=== PATIENT | male | born 1960 | race Caucasian/White ===

== ENCOUNTER 2018-08-17 14:39 | Emergency (ER) | payer OTHER, MEDICAID, SELFPAY ==
[2018-08-17 14:43] VITALS: BP 214/121; PULSE 116; RESP 22; TEMP 36.7; O2SAT 100
--- NOTE | 2018-08-17 14:57 | DI.RAD.S_ITS ---
PROCEDURE: XR CHEST 1V INDICATIONS: vomiting TECHNIQUE: One view of the chest was acquired. COMPARISON: [facility], , XR CXR 1 VIEW, 09/07/2005, 9:28. FINDINGS: Surgical changes and devices: None. Lungs and pleura: No pleural effusions or pneumothorax. Lungs are clear. Mediastinum: Mediastinal contours appear normal. Heart size is normal. Bones and chest wall: No suspicious bony lesions. Overlying soft tissues appear unremarkable. IMPRESSION: No acute process. Dictated by: Adi Castle M.D. on 08/17/2018 at 15:23 Approved by: Adi Castle M.D. on 08/17/2018 at 15:24
--- NOTE | 2018-08-17 15:07 | ED.NAVMDI ---
HPI - Nausea/Vomiting/Diarrhea General Chief complaint: Nausea/Vomiting/Diarrhea Stated complaint: VOMITING BLOOD, DIABETES Time Seen by Provider: 08/17/18 14:56 Source: patient Mode of arrival: ambulatory Limitations: no limitations History of Present Illness HPI Narrative: 58-year-old male here for evaluation of hyperemesis. patient states that he has had this in the past especially when he smokes a large amount of marijuana. He states that over the past couple days he has smoked a large amount of marijuana. He states that he has nausea and vomiting. No nausea medication at home. He states that the past couple vomits he has what he describes as coffee-ground emesis no blood in his stool. Does have some epigastric pain. Has not tried anything for this prior to arrival. He states this feels just like his prior episode of hyperemesis secondary to smoking marijuana. Related Data Home Medications Medication Instructions Recorded Confirmed aspirin 325 mg PO DAILY #0 02/03/12 08/17/18 Syringes 1 syr MISCELLANEOUS DIRECTED 08/17/18 08/17/18 atorvastatin 1 tab PO QPM 08/17/18 08/17/18 glyburide 2 tab PO BID 08/17/18 08/17/18 insulin NPH isoph U-100 human 36 units SUBCUT BID 08/17/18 08/17/18 [Humulin N NPH U-100 Insulin] losartan 1 tab PO DAILY 08/17/18 08/17/18 metformin 1 tab PO BID 08/17/18 08/17/18 metoprolol succinate 1 tab PO DAILY 08/17/18 08/17/18 nitroglycerin 1 patch TOPICAL DAILY 08/17/18 08/17/18 omeprazole 1 cap PO DAILY 08/17/18 08/17/18 Previous Rx's Medication Instructions Recorded nitroglycerin [Nitrostat] 0.4 mg SUBLINGUAL SEE INSTRUCTIONS 04/02/13 #2 bot ondansetron [Zofran ODT] 4 mg PO Q6-8H PRN #14 tab 08/17/18 Allergies Allergy/AdvReac Type Severity Reaction Status Date / Time No Known Drug Allergies Allergy Verified 08/17/18 14:43 Review of Systems Constitutional Denies chills, Denies fever(s) and Denies headache(s) ENT Ears, Nose, Mouth, and Throat: Denies headache(s) Cardiovascular Denies chest pain and Denies dyspnea Respiratory Denies dyspnea Gastrointestinal Gastrointestinal: Reports abdominal pain, Denies melena, Denies change in bowel habits, Reports nausea and Reports vomiting Musculoskeletal Denies myalgias and Denies arthralgias Neurologic Denies confusion and Denies headache(s) Psychiatric Denies confusion Hematologic/Lymphatic Denies easy bleeding and Denies easy bruising PFSH Medical History Cannabinoid hyperemesis syndrome (Acute) Coronary artery disease (Acute) Diabetes (Acute) Gastroesophageal reflux disease (Acute) Hypertension (Acute) Surgical History No pertinent past surgical history (Acute) Exam Initial Vital Signs Initial Vital Signs: Vital Signs Temperature 98.1 F 08/17/18 14:43 Pulse Rate 116 H 08/17/18 14:43 Respiratory Rate 22 08/17/18 14:43 Blood Pressure 214/121 H 08/17/18 14:43 Pulse Oximetry 100 08/17/18 14:43 Const General: cooperative, comfortable, well developed, well groomed and No acute distress Orientation: alert, awake and oriented x3 HENMT Head: normal to inspection and normocephalic Resp Effort & Inspection: normal respiratory effort Auscultation: clear to auscultation bilaterally Cardio Rate: tachycardic Rhythm: regular rhythm Pulses: radial pulses present GI Inspection: non-distended Palpation: soft, No firm, No guarding and tender ( epigastric) Skin Lesions: no lesions Rashes: no rashes Neuro General: alert, awake and oriented x3 Extrem General: normal to inspection and capillary refill normal Course Orders Ordered: ED Orders 08/17/18 14:57 XR chest 1V Stat 08/17/18 14:58 EKG-12 Lead Stat 08/17/18 15:07 Basic Metabolic Panel Stat Complete Blood Count AUTO DIFF Stat Partial Thromboplastin Time Stat Prothrombin Time INR Stat Type and Screen Stat 08/17/18 17:11 EKG-12 Lead Stat Pantoprazole Sodium 80 mg/ (Sodium Chloride) 100 mls @ 10 mls/hr IV NOW ONE Stop: 08/18/18 00:55 Last Infusion: 08/17/18 15:56 Dose: 0 mls/hr Admin: 08/17/18 15:35 Dose: 10 mls/hr Pantoprazole Sodium 80 mg/ (Sodium Chloride) 100 mls @ 10 mls/hr IV CONT ILA Last Admin: 08/17/18 15:56 Dose: 8 mg/hr, 10 mls/hr Discontinued Medications Sodium Chloride (Normal Saline 0.9%) 1,000 mls @ 1,000 mls/hr IV BOLUS ONE Stop: 08/17/18 15:55 Last Infusion: 08/17/18 16:25 Dose: 0 mls/hr Admin: 08/17/18 15:14 Dose: 1,000 mls/hr Metoclopramide HCl (Reglan) 10 mg IV NOW ONE Stop: 08/17/18 17:25 Last Admin: 08/17/18 18:16 Dose: 10 mg Ondansetron HCl (Zofran) 4 mg IV NOW ONE Stop: 08/17/18 15:14 Last Admin: 08/17/18 15:14 Dose: 4 mg Vital Signs - 8 hr 08/17/18 14:43 08/17/18 17:08 Temperature 98.1 F Pulse Rate 116 H 91 H Respiratory Rate 22 18 Blood Pressure 214/121 H Blood Pressure [Left Arm] 183/81 H Pulse Oximetry 100 100 MDM - Nausea/Vomiting/Diarrhea Lab Data Attestation: I reviewed the patient's lab results. Result diagrams: 08/17/18 15:07 08/17/18 15:07 Lab Results 08/17/18 08/17/18 08/17/18 Range/Units 15:07 15:07 15:07 WBC 16.8 H (4.5-11.0) X10^3/uL RBC 5.70 (4.5-5.9) X10^6/uL Hgb 16.9 (13.5-17.5) g/dL Hct 49.1 (41-53) % MCV 86.1 (80-100) fL MCH 29.6 (26-34) PG MCHC 34.4 (30-36) % RDW 14.0 (11.6-14.8) % Plt Count 318 (150-400) X10^3/uL Neut % (Auto) 89.6 H (50-75) % Lymph % (Auto) 6.2 L (25-40) % [place] % (Auto) 3.4 (3-14) % Eos % (Auto) 0.0 L (2-4) % Baso % (Auto) 0.8 (0-2) % Neut # (Auto) 45749 H (0918-7750) /uL PT 11.6 (10.1-12.7) SECONDS INR 1.1 (0.9-1.3) APTT 28 (26.4-36.2) SECONDS Sodium 140 (137-145) mmol/L Potassium 3.5 (3.4-5.1) mmol/L Chloride 94 L (98-107) mmol/L Carbon Dioxide 25 (22-32) mmol/L BUN 14 (9-20) mg/dL Creatinine 0.80 (0.66-1.25) mg/dL Estimated GFR > 60.0 (>60) mL/min BUN/Creatinine Ratio 17.5 (6-22) Glucose 295 H (80-110) mg/dL Calcium 10.0 (8.4-10.2) mg/dL Blood Type Antibody Screen 08/17/18 Range/Units 15:07 WBC (4.5-11.0) X10^3/uL RBC (4.5-5.9) X10^6/uL Hgb (13.5-17.5) g/dL Hct (41-53) % MCV (80-100) fL MCH (26-34) PG MCHC (30-36) % RDW (11.6-14.8) % Plt Count (150-400) X10^3/uL Neut % (Auto) (50-75) % Lymph % (Auto) (25-40) % [place] % (Auto) (3-14) % Eos % (Auto) (2-4) % Baso % (Auto) (0-2) % Neut # (Auto) (7291-1699) /uL PT (10.1-12.7) SECONDS INR (0.9-1.3) APTT (26.4-36.2) SECONDS Sodium (137-145) mmol/L Potassium (3.4-5.1) mmol/L Chloride (98-107) mmol/L Carbon Dioxide (22-32) mmol/L BUN (9-20) mg/dL Creatinine (0.66-1.25) mg/dL Estimated GFR (>60) mL/min BUN/Creatinine Ratio (6-22) Glucose (80-110) mg/dL Calcium (8.4-10.2) mg/dL Blood Type O Positive Antibody Screen Positive Imaging Data Chest x-ray: Radiologist's impression: [address] [address] XRay Report Signed Patient: Royce Roman R#: [id number] : 8Acct:[id number] Age/Sex: 58 / MDate of Service: 08/17/18 Loc: ED Accession Number: [id number] Procedure: XR chest 1V Ordering Provider: Jorge Luis Shields D.O. PROCEDURE: XR CHEST 1V INDICATIONS: vomiting TECHNIQUE: One view of the chest was acquired. COMPARISON: [facility], [facility], XR CXR 1 VIEW, 09/07/2005, 9:28. FINDINGS: Surgical changes and devices: None. Lungs and pleura: No pleural effusions or pneumothorax. Lungs are clear. Mediastinum: Mediastinal contours appear normal. Heart size is normal. Bones and chest wall: No suspicious bony lesions. Overlying soft tissues appear unremarkable. IMPRESSION: No acute process. Dictated by: Adi Castle M.D. on 08/17/2018 at 15:23 Approved by: Adi Castle M.D. on 08/17/2018 at 15:24 ECG Data Attestation: I personally reviewed and interpreted this ECG as follows: Prior ECG tracings: not available for review Interpretation: initial EKG timed at 1505 hr sinus rhythm ventricular rate of 93 Normal axis Normal QRS No ST T wave changes repeat EKG time 1711 hr sinus rhythm ventricular rate of 99 Unchanged from prior EKG MDM Narrative Medical decision making narrative: after fluids and Protonix and anti nausea medication here in the emergency department patient states he feels much better and his pain is much better. He is hyperglycemic however is not in DKA with a CO2 of 25 on his BMP. His relatively benign abdominal exam. No free air noted of the diaphragms on the chest x-ray. Patient states that he has had hyperemesis in the past secondary to smoking large amounts of marijuana which he has recently done. He states this feels like his prior history of hyperemesis. We did discuss the importance of him stopping the marijuana. patient is on omeprazole and he was told to start taking his medication. He states he only takes it occasionally.. Also sent home with nausea medication. He was instructed he needed to contact his primary care doctor to discuss the indications for referral to see GI for an upper endoscopy. Patient expressed understanding and agreement with plan. Discharge Plan Departure Patient Disposition: Home Clinical Impression: Cannabinoid hyperemesis syndrome Instructions: Nausea and Vomiting-Adult Activity Restrictions/Additional Instructions: I highly recommend that you start taking the omeprazole on a daily basis. The nausea medication year given today is as needed for any vomiting issues. I do suspect that if you significantly cut back/ stop the marijuana use your symptoms will improve. be sure to increase your fluid intake to prevent dehydration. Call your primary care doctor for a follow-up to discuss the indications to see a podiatrist orthopedic. Return to the emergency department for any new or worsening symptoms Prescriptions: New ondansetron [Zofran ODT] 4 mg tablet,disintegrating 4 mg PO Q6-8H PRN (Reason: nausea and vomiting) Qty: 14 RF: 0 No Action aspirin 325 mg Tablet,Delayed Release (Dr/Ec) 325 mg PO DAILY Qty: 0 RF: 0 nitroglycerin [Nitrostat] 0.4 MG tablet, sublingual 0.4 mg Sublingual SEE INSTRUCTIONS Qty: 2 RF: PRN atorvastatin 40 mg tablet 1 tab PO QPM RF: 0 glyburide 5 mg tablet 2 tab PO BID RF: 0 metformin 1,000 mg tablet 1 tab PO BID RF: 0 insulin NPH isoph U-100 human [Humulin N NPH U-100 Insulin] 100 unit/mL suspension 36 units subcut BID RF: 0 omeprazole 20 mg capsule,delayed release(DR/EC) 1 cap PO DAILY RF: 0 metoprolol succinate 25 mg tablet extended release 24 hr 1 tab PO DAILY RF: 0 losartan 100 mg tablet 1 tab PO DAILY RF: 0 nitroglycerin 0.2 mg/hr patch 24 hour 1 patch Topical DAILY RF: 0 Syringes 1 syr miscellaneous DIRECTED RF: 0
[2018-08-17] MEDS: ONDANSETRON 4 MG/2 ML INJ IV (15:14)
[2018-08-17] MEDS: SODIUM CHLORIDE 0.9% 1,000 ML 1000 ML IV (15:14)
[2018-08-17 15:19] LABS: Add Manual Diff / Slide Review NO; Basophils Percent Auto 0.8 % (0-2); Hematocrit 49.1 % (41-53); Hemoglobin 16.9 g/dL (13.5-17.5); Lymphocytes Percent Auto 6.2 % (25-40); Mean Corpuscular HGB Conc 34.4 % (30-36); Mean Corpuscular Hemoglobin 29.6 PG (26-34); Mean Corpuscular Volume 86.1 fL (80-100); Monocytes Percent Auto 3.4 % (3-14); Neutrophils Absolute Auto 15100 /uL (3000-5900); Neutrophils Percent Auto 89.6 % (50-75); Platelet Count 318 X10^3/uL (150-400); White Blood Cell Count 16.8 X10^3/uL (4.5-11.0)
[2018-08-17 15:29] LABS: INR 1.1 (0.9-1.3); Prothrombin Time 11.6 SECONDS (10.1-12.7)
[2018-08-17 15:31] LABS: BUN Creatinine Ratio 17.5 (6-22); Blood Urea Nitrogen 14 mg/dL (9-20); Carbon Dioxide 25 mmol/L (22-32); Chloride 94 mmol/L (98-107); Estimated Glomerular Filt Rate > 60.0 mL/min (>60); Glucose 295 mg/dL (80-110); HEMOLYSIS < 15 (0-50); Potassium 3.5 mmol/L (3.4-5.1); Sodium 140 mmol/L (137-145)
[2018-08-17 15:32] LABS: PTT Partial Thromboplastin Tim 28 SECONDS (26.4-36.2)
[2018-08-17] MEDS: PANTOPRAZOLE 80 MG in SODIUM CHLORIDE 0.9% 100 ML 10 ML IV ×2 (15:35→15:56)
[2018-08-17 17:08] VITALS: BP 183/81; PULSE 91; RESP 18; O2SAT 100
[2018-08-17] MEDS: METOCLOPRAMIDE 10 MG/2 ML INJ IV (18:16)
--- NOTE | 2018-08-17 18:32 | PC.NURSE ---
Pts pain much improved,not retching any more either.
[2018-08-17 18:57] VITALS: BP 132/86; PULSE 93
== END 2018-08-17 18:58 | disposition home or self-care (01) ==
PROVIDERS: Emergency Provider Emergency Medicine; Family Provider Internal Medicine; PCP Internal Medicine
DX: F12.988 Cannabis use, unspecified with other cannabis-induced disorder (principal)
CPT/HCPCS: 36591; 71045; 80048; 85025; 85610; 85730; 86850; 86870; 86900; 86901; 93005; 93010; 96365; 96366; 96375; 99283; 99285; C9113; J2405; J2765

== ENCOUNTER 2019-04-15 15:26 | Emergency (ER) | payer OTHER, MEDICAID, SELFPAY ==
[2019-04-15 15:31] VITALS: BP 198/109; PULSE 92; RESP 18; TEMP 36.1; O2SAT 99; BMI 34.0
[2019-04-15] MEDS: ONDANSETRON 4 MG/2 ML INJ IV (16:09)
[2019-04-15] MEDS: SODIUM CHLORIDE 0.9% 1,000 ML 1000 ML IV ×2 (16:09→17:25)
[2019-04-15 16:16] LABS: Add Manual Diff / Slide Review NO; Basophils Absolute Auto 100 /uL (0-100); Basophils Percent Auto 0.5 % (0-2); Eosinophils Absolute Auto 0 /uL (0-450); Eosinophils Percent Auto 0.2 % (2-4); Hematocrit 47.9 % (41-53); Hemoglobin 16.2 g/dL (13.5-17.5); Lymphocytes Absolute Auto 1000 /uL (1100-4500); Lymphocytes Percent Auto 8.6 % (25-40); Mean Corpuscular HGB Conc 33.9 % (30-36); Mean Corpuscular Volume 85.5 fL (80-100); Monocytes Absolute Auto 500 /uL (0-900); Monocytes Percent Auto 4.3 % (3-14); Neutrophils Absolute Auto 10500 /uL (1500-7000); Neutrophils Percent Auto 86.4 % (50-75); Platelet Count 342 X10^3/uL (150-400); Red Cell Distribution Width 13.9 % (11.6-14.8); White Blood Cell Count 12.1 X10^3/uL (4.5-11.0)
[2019-04-15 16:27] LABS: Lactate (Lactic Acid) 2.6 mmol/L (0.7-2.1)
[2019-04-15 16:28] LABS: Alanine Aminotransferase 36 IU/L (21-72); Albumin Globulin Ratio 1.5 (1.0-2.8); Alkaline Phosphatase 90 U/L (38-126); Aspartate Aminotransferase 25 IU/L (17-59); BUN Creatinine Ratio 17.5 (6-22); Bilirubin Total 1.1 mg/dL (0.2-1.3); Blood Urea Nitrogen 14 mg/dL (9-20); Calcium 9.8 mg/dL (8.4-10.2); Carbon Dioxide 24 mmol/L (22-32); Chloride 97 mmol/L (98-107); Estimated Glomerular Filt Rate > 60.0 mL/min (>60); Globulin 3.3 g/dL (1.7-4.1); Glucose 365 mg/dL (80-110); HEMOLYSIS < 15 (0-50); Potassium 4.3 mmol/L (3.4-5.1); Sodium 138 mmol/L (137-145); Total Protein 8.3 g/dL (6.3-8.2)
[2019-04-15 16:29] LABS: Amylase 80 U/L (30-110); Lipase 68 U/L (23-300)
--- NOTE | 2019-04-15 16:35 | DI.RAD.S_ITS ---
PROCEDURE: XR ACUTE ABDOMEN SERIES INDICATIONS: abd pain, vomiting TECHNIQUE: One view chest and two views of the abdomen were acquired. COMPARISON: None. FINDINGS: Surgical changes and devices: None. Chest: Lungs are clear. Heart size is normal. No pleural effusions. No pneumoperitoneum. Abdomen: Bowel gas pattern is normal. No suspicious calcifications. Visualized solid organ contours appear normal. Bones: No suspicious bony lesions. IMPRESSION: No acute process. Dictated by: Adi Catsle M.D. on 04/15/2019 at 15:52 Approved by: Adi Castle M.D. on 04/15/2019 at 15:52
--- NOTE | 2019-04-15 16:57 | ED_ITS ---
HPI - Nausea/Vomiting/Diarrhea <Myriam Chandana, DIRECTOR OF ASSISTED LIVING-[facility] - Last Filed: 04/15/19 20:34> General Chief complaint: Nausea/Vomiting/Diarrhea Stated complaint: states cyclical vomiting Time Seen by Provider: 04/15/19 15:51 Source: patient Mode of arrival: ambulatory Limitations: no limitations History of Present Illness HPI Narrative: Patient is a 58-year-old male current marijuana smoker with his tory of type 2 diabetes who presents with ?my cyclic vomiting is acting up again.The patient states that he has a history of cannabis related hyperemesis. He states this attack came on last Tuesday, and he is unable to keep down food or fluids. He states he has not been able to keep down his diabetes medications. He denies any fevers chest pain shortness of breath. He denies any diarrhea. He has not taken anything at home to help himself feel better. He states he felt he was getting better, and then got worse again. He has not followed up with his PCP. The patient denies any vomiting blood or coffee- ground emesis. Related Data Home Medications Medication Instructions Recorded Confirmed aspirin 325 mg PO DAILY #0 02/03/12 08/17/18 Syringes 1 syr MISCELLANEOUS DIRECTED 08/17/18 08/17/18 atorvastatin 1 tab PO QPM 08/17/18 08/17/18 glyburide 2 tab PO BID 08/17/18 08/17/18 insulin NPH isoph U-100 human 36 units SUBCUT BID 08/17/18 08/17/18 [Humulin N NPH U-100 Insulin] losartan 1 tab PO DAILY 08/17/18 08/17/18 metformin 1 tab PO BID 08/17/18 08/17/18 metoprolol succinate 1 tab PO DAILY 08/17/18 08/17/18 nitroglycerin 1 patch TOPICAL DAILY 08/17/18 08/17/18 omeprazole 1 cap PO DAILY 08/17/18 08/17/18 Previous Rx's Medication Instructions Recorded nitroglycerin [Nitrostat] 0.4 mg SUBLINGUAL SEE INSTRUCTIONS 04/02/13 #2 bot ondansetron [Zofran ODT] 4 mg PO Q6-8H PRN #14 tab 08/17/18 ondansetron 4 mg PO Q8H PRN #20 tab 04/15/19 promethazine [Phenergan] 25 mg [place] Q6H PRN #12 each 04/15/19 Allergies Allergy/AdvReac Type Severity Reaction Status Date / Time No Known Drug Allergies Allergy Verified 04/15/19 15:31 Review of Systems <ARCHANA Alejandro - Last Filed: 04/15/19 20:34> Review of Systems GENERAL: This is a well-nourished, well-developed patient, in mild distress. HEAD: Atraumatic. Normocephalic. No temporal or scalp tenderness. EYES: Pupils equal round and reactive. Extraocular motions intact. No scleral icterus. No injection or drainage. ENT: Nose without bleeding, purulent drainage or septal hematoma. Throat without erythema, tonsillar hypertrophy or exudate. Uvula midline. Airway patent. NECK: Trachea midline. No JVD or lymphadenopathy. Supple, nontender, no meningeal signs. CARDIOVASCULAR: Regular rate and rhythm without murmurs, gallops, or rubs. RESPIRATORY: Clear to auscultation. Breath sounds equal bilaterally. No wheezes, rales, or rhonchi. GASTROINTESTINAL: See HPI EXTREMITIES: No clubbing, cyanosis, or edema. No joint tenderness, effusion, or edema noted. BACK: Nontender without deformity or crepitance. No flank tenderness. NEURO: AOx3. SKIN: No rash or erythema. PFSH <ARCHANA Alejandro - Last Filed: 04/15/19 20:34> Medical History Cannabinoid hyperemesis syndrome (Acute) Coronary artery disease (Acute) Diabetes (Acute) Gastroesophageal reflux disease (Acute) Hypertension (Acute) Surgical History No pertinent past surgical history (Acute) Social History Smoking Status: Current every day smoker Social History Smoking Status: Current every day smoker Exam <ARCHANA Alejandro - Last Filed: 04/15/19 20:34> Narrative Exam Narrative: GENERAL: This is a well-nourished, well-developed patient, n auseous HEAD: Atraumatic. Normocephalic. No temporal or scalp tenderness. EYES: Pupils equal round and reactive. Extraocular motions intact. No scleral icterus. No injection or drainage. ENT: Nose without bleeding, purulent drainage or septal hematoma. Throat without erythema, tonsillar hypertrophy or exudate. Uvula midline. Airway patent. NECK: Trachea midline. No JVD or lymphadenopathy. Supple, nontender, no meningeal signs. CARDIOVASCULAR: Regular rate and rhythm without murmurs, gallops, or rubs. RESPIRATORY: Clear to auscultation. Breath sounds equal bilaterally. No wheezes, rales, or rhonchi. No cough. No increased respiratory effort. No accessory muscle use use. GASTROINTESTINAL: Abdomen soft, diffusely tender, nondistended. No hepato- splenomegaly, or palpable masses. No guarding. Active bowel sounds all 4 quadrants. EXTREMITIES: No clubbing, cyanosis, or edema. No joint tenderness, effusion, or edema noted. BACK: Nontender without deformity or crepitance. No flank tenderness. NEURO: AOx3. SKIN: No rash or erythema. Initial Vital Signs Initial Vital Signs: Vital Signs Temperature 97.0 F L 04/15/19 15:31 Pulse Rate 92 H 04/15/19 15:31 Respiratory Rate 18 04/15/19 15:31 Blood Pressure 198/109 H 04/15/19 15:31 Pulse Oximetry 99 04/15/19 15:31 <Pili Marie MD - Last Filed: 04/17/19 07:18> Initial Vital Signs Initial Vital Signs: Vital Signs Temperature 97.0 F L 04/15/19 15:31 Pulse Rate 92 H 04/15/19 15:31 Respiratory Rate 18 04/15/19 15:31 Blood Pressure 198/109 H 04/15/19 15:31 Pulse Oximetry 99 04/15/19 15:31 Course <ARCHANA Alejandro - Last Filed: 04/15/19 20:34> Orders Ordered: Discontinued Medications Sodium Chloride (Normal Saline 0.9%) 1,000 mls @ 1,000 mls/hr IV BOLUS ONE Stop: 04/15/19 17:02 Last Infusion: 04/15/19 17:24 Dose: 0 mls/hr Admin: 04/15/19 16:09 Dose: 1,000 mls/hr Sodium Chloride (Normal Saline 0.9%) 1,000 mls @ 1,000 mls/hr IV BOLUS ONE Stop: 04/15/19 18:24 Last Infusion: 04/15/19 19:02 Dose: 0 mls/hr Admin: 04/15/19 17:25 Dose: 1,000 mls/hr Sodium Chloride (Normal Saline 0.9%) 1,000 mls @ 1,000 mls/hr IV BOLUS ONE Stop: 04/15/19 18:24 Last Admin: 04/15/19 17:51 Dose: Not Given Metoclopramide HCl (Reglan) 10 mg IV NOW ONE Stop: 04/15/19 16:36 Last Admin: 04/15/19 17:25 Dose: 10 mg Ondansetron HCl (Zofran) 4 mg IV NOW ONE Stop: 04/15/19 16:04 Last Admin: 04/15/19 16:09 Dose: 4 mg Ondansetron HCl (Zofran Odt Prepack) 1 bottle MISC SEEINSTR ONE Stop: 04/15/19 20:18 Last Admin: 04/15/19 20:33 Dose: 1 bottle Promethazine HCl (Phenadoz) 25 mg AK NOW ONE Stop: 04/15/19 18:46 Last Admin: 04/15/19 19:29 Dose: 25 mg Promethazine HCl (Phenergan 25 Mg Prepack) 1 bottle MISC SEEINSTR ONE Stop: 04/15/19 20:23 Last Admin: 04/15/19 20:33 Dose: 1 bottle Vital Signs - 8 hr 04/15/19 15:31 04/15/19 17:32 04/15/19 17:33 Temperature 97.0 F L Pulse Rate 92 H 94 H 68 Respiratory Rate 18 16 14 Blood Pressure 198/109 H Blood Pressure [Right Arm] 188/88 H 188/88 H Pulse Oximetry 99 97 98 04/15/19 18:21 04/15/19 19:00 Temperature Pulse Rate 80 88 Respiratory Rate 18 16 Blood Pressure Blood Pressure [Right Arm] 190/82 H 190/82 H Pulse Oximetry 98 98 <Pili Marie MD - Last Filed: 04/17/19 07:18> Orders Ordered: Discontinued Medications Sodium Chloride (Normal Saline 0.9%) 1,000 mls @ 1,000 mls/hr IV BOLUS ONE Stop: 04/15/19 17:02 Last Infusion: 04/15/19 17:24 Dose: 0 mls/hr Admin: 04/15/19 16:09 Dose: 1,000 mls/hr Sodium Chloride (Normal Saline 0.9%) 1,000 mls @ 1,000 mls/hr IV BOLUS ONE Stop: 04/15/19 18:24 Last Infusion: 04/15/19 19:02 Dose: 0 mls/hr Admin: 04/15/19 17:25 Dose: 1,000 mls/hr Sodium Chloride (Normal Saline 0.9%) 1,000 mls @ 1,000 mls/hr IV BOLUS ONE Stop: 04/15/19 18:24 Last Admin: 04/15/19 17:51 Dose: Not Given Metoclopramide HCl (Reglan) 10 mg IV NOW ONE Stop: 04/15/19 16:36 Last Admin: 04/15/19 17:25 Dose: 10 mg Ondansetron HCl (Zofran) 4 mg IV NOW ONE Stop: 04/15/19 16:04 Last Admin: 04/15/19 16:09 Dose: 4 mg Ondansetron HCl (Zofran Odt Prepack) 1 bottle MISC SEEINSTR ONE Stop: 04/15/19 20:18 Last Admin: 04/15/19 20:33 Dose: 1 bottle Promethazine HCl (Phenadoz) 25 mg AK NOW ONE Stop: 04/15/19 18:46 Last Admin: 04/15/19 19:29 Dose: 25 mg Promethazine HCl (Phenergan 25 Mg Prepack) 1 bottle MISC SEEINSTR ONE Stop: 04/15/19 20:23 Last Admin: 04/15/19 20:33 Dose: 1 bottle Vital Signs - 8 hr 04/15/19 15:31 04/15/19 17:32 04/15/19 17:33 Temperature 97.0 F L Pulse Rate 92 H 94 H 68 Respiratory Rate 18 16 14 Blood Pressure 198/109 H Blood Pressure [Right Arm] 188/88 H 188/88 H Pulse Oximetry 99 97 98 04/15/19 18:21 04/15/19 19:00 Temperature Pulse Rate 80 88 Respiratory Rate 18 16 Blood Pressure Blood Pressure [Right Arm] 190/82 H 190/82 H Pulse Oximetry 98 98 MDM - Nausea/Vomiting/Diarrhea <Myriam Ellington, DIRECTOR OF ASSISTED LIVING-[facility] - Last Filed: 04/15/19 20:34> Lab Data Result diagrams: 04/15/19 16:00 04/15/19 16:00 Lab Results 04/15/19 04/15/19 04/15/19 Range/Units 16:00 16:00 16:00 WBC 12.1 H (4.5-11.0) X10^3/uL RBC 5.60 (4.5-5.9) X10^6/uL Hgb 16.2 (13.5-17.5) g/dL Hct 47.9 (41-53) % MCV 85.5 (80-100) fL MCH 29.0 (26-34) PG MCHC 33.9 (30-36) % RDW 13.9 (11.6-14.8) % Plt Count 342 (150-400) X10^3/uL Neut % (Auto) 86.4 H (50-75) % Lymph % (Auto) 8.6 L (25-40) % [place] % (Auto) 4.3 (3-14) % Eos % (Auto) 0.2 L (2-4) % Baso % (Auto) 0.5 (0-2) % Neut # (Auto) 18804 H (5834-4610) /uL Lymph # (Auto) 1000 L (7771-8471) /uL [place] # (Auto) 500 (0-900) /uL Eos # (Auto) 0 (0-450) /uL Baso # (Auto) 100 (0-100) /uL Sodium (137-145) mmol/L Potassium (3.4-5.1) mmol/L Chloride (98-107) mmol/L Carbon Dioxide (22-32) mmol/L BUN (9-20) mg/dL Creatinine (0.66-1.25) mg/dL Estimated GFR (>60) mL/min BUN/Creatinine Ratio (6-22) Glucose (80-110) mg/dL Lactate 2.6 H (0.7-2.1) mmol/L Calcium (8.4-10.2) mg/dL Total Bilirubin (0.2-1.3) mg/dL AST (17-59) IU/L ALT (21-72) IU/L Alkaline Phosphatase (38-126) U/L Total Protein (6.3-8.2) g/dL Albumin (3.5-5.0) g/dL Globulin (1.7-4.1) g/dL Albumin/Globulin Ratio (1.0-2.8) Amylase 80 (30-110) U/L Lipase 68 (23-300) U/L Urine RBC (0-5/HPF) Urine WBC (0-5/HPF) Ur Squamous Epith Cells (0-5/HPF) Urine Bacteria (None) Ur Culture Indicated? 04/15/19 04/15/19 04/15/19 Range/Units 16:00 17:30 18:23 WBC (4.5-11.0) X10^3/uL RBC (4.5-5.9) X10^6/uL Hgb (13.5-17.5) g/dL Hct (41-53) % MCV (80-100) fL MCH (26-34) PG MCHC (30-36) % RDW (11.6-14.8) % Plt Count (150-400) X10^3/uL Neut % (Auto) (50-75) % Lymph % (Auto) (25-40) % [place] % (Auto) (3-14) % Eos % (Auto) (2-4) % Baso % (Auto) (0-2) % Neut # (Auto) (7141-4244) /uL Lymph # (Auto) (0752-1572) /uL [place] # (Auto) (0-900) /uL Eos # (Auto) (0-450) /uL Baso # (Auto) (0-100) /uL Sodium 138 (137-145) mmol/L Potassium 4.3 (3.4-5.1) mmol/L Chloride 97 L (98-107) mmol/L Carbon Dioxide 24 (22-32) mmol/L BUN 14 (9-20) mg/dL Creatinine 0.80 (0.66-1.25) mg/dL Estimated GFR > 60.0 (>60) mL/min BUN/Creatinine Ratio 17.5 (6-22) Glucose 365 H (80-110) mg/dL Lactate 1.1 (0.7-2.1) mmol/L Calcium 9.8 (8.4-10.2) mg/dL Total Bilirubin 1.1 (0.2-1.3) mg/dL AST 25 (17-59) IU/L ALT 36 (21-72) IU/L Alkaline Phosphatase 90 (38-126) U/L Total Protein 8.3 H (6.3-8.2) g/dL Albumin 5.0 (3.5-5.0) g/dL Globulin 3.3 (1.7-4.1) g/dL Albumin/Globulin Ratio 1.5 (1.0-2.8) Amylase (30-110) U/L Lipase (23-300) U/L Urine RBC 0-1/hpf (0-5/HPF) Urine WBC 0-1/hpf (0-5/HPF) Ur Squamous Epith Cells 0-1 /hpf (0-5/HPF) Urine Bacteria None seen (None) Ur Culture Indicated? Cult not indicated Point of Care Testing Glucose POC 268 Urine Dip Bedside Urine Glucose 1000 mg/dl Bedside Urine Bilirubin - Negative Bedside Urine Ketone +++ 80 Urine Specific [place] 1.020 Bedside Urine Occult Blood - Negative Bedside Urine pH 5.5 Bedside Urine Protein + 30 Bedside Urine Urobilinogen +/- 1mg Bedside Urine Nitrite - Negative Bedside Urine Leukocytes - Negative Esterase Imaging Data acute abd series : Radiologist's impression: [place] [address] XRay Report Signed Patient: Royce Roman R#: [id number] : 8Acct:[id number] Age/Sex: 58 / MDate of Service: 04/15/19 Loc: ED Accession Number: [id number] Procedure: XR acute abdomen series Ordering Provider: Myriam Ellington PROCEDURE: XR ACUTE ABDOMEN SERIES INDICATIONS: abd pain, vomiting TECHNIQUE: One view chest and two views of the abdomen were acquired. COMPARISON: None. FINDINGS: Surgical changes and devices: None. Chest: Lungs are clear. Heart size is normal. No pleural effusions. No pneumoperitoneum. Abdomen: Bowel gas pattern is normal. No suspicious calcifications. Visualized solid organ contours appear normal. Bones: No suspicious bony lesions. IMPRESSION: No acute process. Dictated by: Adi Castle M.D. on 04/15/2019 at 15:52 Approved by: Adi Castle M.D. on 04/15/2019 at 15:52 [facility] Narrative Medical decision making narrative: The patient is a 58-year-old male with history of can avoid related hyperemesis, who presents with a chief complaint of nausea and vomiting. He does have history of diabetes blood sugars were elevated. He is hyperglycemic, but does not have DKA as his CO2 is 24 on his BMP. He has a benign abdominal exam. He was treated with 2 L IV fluids, Zofran and Reglan and Phenergan. I did give him prescriptions of Zofran and Phenergan. He was able to tolerate p.o. trial of fluids and ice prior to discharge. He felt much improved. I discussed coming back to the ER for any acute concerns. Discussed follow-up with his PCP in the next few days. Patient has no questions or concerns upon discharge. I encouraged the patient to stop smoking marijuana. <Pili Marie MD - Last Filed: 04/17/19 07:18> Lab Data Lab Results 04/15/19 04/15/19 04/15/19 Range/Units 16:00 16:00 16:00 WBC 12.1 H (4.5-11.0) X10^3/uL RBC 5.60 (4.5-5.9) X10^6/uL Hgb 16.2 (13.5-17.5) g/dL Hct 47.9 (41-53) % MCV 85.5 (80-100) fL MCH 29.0 (26-34) PG MCHC 33.9 (30-36) % RDW 13.9 (11.6-14.8) % Plt Count 342 (150-400) X10^3/uL Neut % (Auto) 86.4 H (50-75) % Lymph % (Auto) 8.6 L (25-40) % [place] % (Auto) 4.3 (3-14) % Eos % (Auto) 0.2 L (2-4) % Baso % (Auto) 0.5 (0-2) % Neut # (Auto) 79084 H (0679-3745) /uL Lymph # (Auto) 1000 L (5479-0260) /uL [place] # (Auto) 500 (0-900) /uL Eos # (Auto) 0 (0-450) /uL Baso # (Auto) 100 (0-100) /uL Sodium (137-145) mmol/L Potassium (3.4-5.1) mmol/L Chloride (98-107) mmol/L Carbon Dioxide (22-32) mmol/L BUN (9-20) mg/dL Creatinine (0.66-1.25) mg/dL Estimated GFR (>60) mL/min BUN/Creatinine Ratio (6-22) Glucose (80-110) mg/dL Lactate 2.6 H (0.7-2.1) mmol/L Calcium (8.4-10.2) mg/dL Total Bilirubin (0.2-1.3) mg/dL AST (17-59) IU/L ALT (21-72) IU/L Alkaline Phosphatase (38-126) U/L Total Protein (6.3-8.2) g/dL Albumin (3.5-5.0) g/dL Globulin (1.7-4.1) g/dL Albumin/Globulin Ratio (1.0-2.8) Amylase 80 (30-110) U/L Lipase 68 (23-300) U/L Urine RBC (0-5/HPF) Urine WBC (0-5/HPF) Ur Squamous Epith Cells (0-5/HPF) Urine Bacteria (None) Ur Culture Indicated? 04/15/19 04/15/19 04/15/19 Range/Units 16:00 17:30 18:23 WBC (4.5-11.0) X10^3/uL RBC (4.5-5.9) X10^6/uL Hgb (13.5-17.5) g/dL Hct (41-53) % MCV (80-100) fL MCH (26-34) PG MCHC (30-36) % RDW (11.6-14.8) % Plt Count (150-400) X10^3/uL Neut % (Auto) (50-75) % Lymph % (Auto) (25-40) % [place] % (Auto) (3-14) % Eos % (Auto) (2-4) % Baso % (Auto) (0-2) % Neut # (Auto) (9560-6567) /uL Lymph # (Auto) (0100-7354) /uL [place] # (Auto) (0-900) /uL Eos # (Auto) (0-450) /uL Baso # (Auto) (0-100) /uL Sodium 138 (137-145) mmol/L Potassium 4.3 (3.4-5.1) mmol/L Chloride 97 L (98-107) mmol/L Carbon Dioxide 24 (22-32) mmol/L BUN 14 (9-20) mg/dL Creatinine 0.80 (0.66-1.25) mg/dL Estimated GFR > 60.0 (>60) mL/min BUN/Creatinine Ratio 17.5 (6-22) Glucose 365 H (80-110) mg/dL Lactate 1.1 (0.7-2.1) mmol/L Calcium 9.8 (8.4-10.2) mg/dL Total Bilirubin 1.1 (0.2-1.3) mg/dL AST 25 (17-59) IU/L ALT 36 (21-72) IU/L Alkaline Phosphatase 90 (38-126) U/L Total Protein 8.3 H (6.3-8.2) g/dL Albumin 5.0 (3.5-5.0) g/dL Globulin 3.3 (1.7-4.1) g/dL Albumin/Globulin Ratio 1.5 (1.0-2.8) Amylase (30-110) U/L Lipase (23-300) U/L Urine RBC 0-1/hpf (0-5/HPF) Urine WBC 0-1/hpf (0-5/HPF) Ur Squamous Epith Cells 0-1 /hpf (0-5/HPF) Urine Bacteria None seen (None) Ur Culture Indicated? Cult not indicated Point of Care Testing Glucose POC 268 Urine Dip Bedside Urine Glucose 1000 mg/dl Bedside Urine Bilirubin - Negative Bedside Urine Ketone +++ 80 Urine Specific [place] 1.020 Bedside Urine Occult Blood - Negative Bedside Urine pH 5.5 Bedside Urine Protein + 30 Bedside Urine Urobilinogen +/- 1mg Bedside Urine Nitrite - Negative Bedside Urine Leukocytes - Negative Esterase Discharge Plan Departure Patient Disposition: Home Clinical Impression: Cannabinoid hyperemesis syndrome Discharge Date/Time: 04/15/19 20:43 Interventions: ED Discharge Assessment Last Done: 04/15/19 20:42 Instructions: DI for Nausea -- Adult, DI for Vomiting -- Adult Activity Restrictions/Additional Instructions: Please follow up with primary care provider as soon as possible. I have given you to defer prescriptions for nausea. Please take small amounts of fluids frequently. Please come back to the emergency department for any acute concerns such as inability keep down fluids, chest pain or shortness of breath. You can try application of capsaicin cream to your stomach as well as warm showers. Please stop smoking marijuana. Prescriptions: New promethazine [Phenergan] 25 mg suppository 25 mg AK Q6H PRN (Reason: nausea and vomiting) Qty: 12 RF: 0 ondansetron 4 mg tablet,disintegrating 4 mg PO Q8H PRN (Reason: nausea and vomiting) Qty: 20 RF: 0 No Action aspirin 325 mg Tablet,Delayed Release (Dr/Ec) 325 mg PO DAILY Qty: 0 RF: 0 nitroglycerin [Nitrostat] 0.4 MG tablet, sublingual 0.4 mg Sublingual SEE INSTRUCTIONS Qty: 2 RF: PRN atorvastatin 40 mg tablet 1 tab PO QPM RF: 0 glyburide 5 mg tablet 2 tab PO BID RF: 0 metformin 1,000 mg tablet 1 tab PO BID RF: 0 insulin NPH isoph U-100 human [Humulin N NPH U-100 Insulin] 100 unit/mL susp ension 36 units subcut BID RF: 0 omeprazole 20 mg capsule,delayed release(DR/EC) 1 cap PO DAILY RF: 0 metoprolol succinate 25 mg tablet extended release 24 hr 1 tab PO DAILY RF: 0 losartan 100 mg tablet 1 tab PO DAILY RF: 0 nitroglycerin 0.2 mg/hr patch 24 hour 1 patch Topical DAILY RF: 0 Syringes 1 syr miscellaneous DIRECTED RF: 0 ondansetron [Zofran ODT] 4 mg tablet,disintegrating 4 mg PO Q6-8H PRN (Reason: nausea and vomiting) Qty: 14 RF: 0
[2019-04-15] MEDS: METOCLOPRAMIDE 10 MG/2 ML INJ IV (17:25)
[2019-04-15 17:32] VITALS: BP 188/88; PULSE 94; RESP 16; O2SAT 97
[2019-04-15 17:33] VITALS: BP 188/88; PULSE 68; RESP 14; O2SAT 98
[2019-04-15 17:42] LABS: Bacteria Urine None Seen
[2019-04-15 17:50] LABS: RBC Urine 0-1/HPF (0-5/HPF); Squamous Epithelial Cell Urine 0-1 /HPF (0-5/HPF); WBC Urine 0-1/HPF (0-5/HPF)
[2019-04-15 17:51] LABS: Culture Indicated Urine Cult Not Indicated
[2019-04-15 18:11] LABS: Reflexed Lactate in 2 Hours Y
[2019-04-15 18:21] VITALS: BP 190/82; PULSE 80; RESP 18; O2SAT 98
[2019-04-15 18:40] LABS: Lactate 2HR (Lactic Acid Rflx) 1.1 mmol/L (0.7-2.1)
[2019-04-15 19:00] VITALS: BP 190/82; PULSE 88; RESP 16; O2SAT 98
[2019-04-15] MEDS: PROMETHAZINE 25 MG SUPP PR (19:29)
[2019-04-15] MEDS: ONDANSETRON 4 MG ODT PREPACK 1 BOTTLE MISC (20:33)
[2019-04-15] MEDS: PROMETHAZINE 25 MG PREPACK 1 BOTTLE MISC (20:33)
[2019-04-15 20:34] VITALS: BP 188/80; PULSE 88; RESP 14; TEMP 36.7; O2SAT 98
== END 2019-04-15 20:43 | disposition home or self-care (01) ==
PROVIDERS: Emergency Provider Nurse Practitioner Family
DX: F12.988 Cannabis use, unspecified with other cannabis-induced disorder (principal)
CPT/HCPCS: 36415; 36591; 74022; 80053; 81003; 81015; 82150; 82962; 83605; 83690; 85025; 96361; 96374; 96375; 99284; J2405; J2765

== ENCOUNTER 2019-12-25 23:38 | Emergency (ER) | payer OTHER, MEDICAID, SELFPAY ==
--- NOTE | 2019-12-25 23:40 | PC.NURSE ---
PT states about 7 episodes of n/v tonight with one episode of blood in his vomit, reports he is out of his omeprazole, has a history cyclic vomiting and uses cannabis. Pt appears in no acute distress is sleeping on stretcher in room.
[2019-12-25 23:47] VITALS: BP 181/101; PULSE 107; RESP 18; TEMP 36.6; O2SAT 98
[2019-12-26] MEDS: ONDANSETRON 4 MG/2 ML INJ IV (00:07)
[2019-12-26 00:38] LABS: Add Manual Diff / Slide Review NO; Basophils Absolute Auto 0 /uL (0-100); Basophils Percent Auto 0.4 % (0-2); Eosinophils Absolute Auto 300 /uL (0-450); Eosinophils Percent Auto 2.3 % (2-4); Hematocrit 47.2 % (41-53); Lymphocytes Absolute Auto 1400 /uL (1100-4500); Lymphocytes Percent Auto 10.5 % (25-40); Mean Corpuscular HGB Conc 33.8 % (30-36); Mean Corpuscular Hemoglobin 29.3 PG (26-34); Mean Corpuscular Volume 86.7 fL (80-100); Monocytes Absolute Auto 800 /uL (0-900); Monocytes Percent Auto 5.7 % (3-14); Neutrophils Absolute Auto 11200 /uL (1500-7000); Neutrophils Percent Auto 81.1 % (50-75); Platelet Count 310 X10^3/uL (150-400); Red Blood Cell Count 5.45 X10^6/uL (4.5-5.9); Red Cell Distribution Width 13.7 % (11.6-14.8); White Blood Cell Count 13.8 X10^3/uL (4.5-11.0)
[2019-12-26 00:45] LABS: Prothrombin Time 11.6 SECONDS (10.1-12.7)
[2019-12-26 00:48] LABS: PTT Partial Thromboplastin Tim 26 SECONDS (26.4-36.2)
[2019-12-26 00:50] LABS: Alanine Aminotransferase 27 IU/L (<50); Albumin 5.1 g/dL (3.5-5.0); Albumin Globulin Ratio 1.5 (1.0-2.8); Alkaline Phosphatase 73 U/L (38-126); Aspartate Aminotransferase 34 IU/L (17-59); BUN Creatinine Ratio 17.5 (6-22); Bilirubin Total 0.7 mg/dL (0.2-1.3); Blood Urea Nitrogen 14 mg/dL (9-20); Calcium 10.6 mg/dL (8.4-10.2); Carbon Dioxide 25 mmol/L (22-32); Chloride 99 mmol/L (98-107); Estimated Glomerular Filt Rate > 60.0 mL/min (>60); Globulin 3.5 g/dL (1.7-4.1); Glucose 240 mg/dL (80-110); HEMOLYSIS 39 (0-50); Potassium 4.6 mmol/L (3.4-5.1); Sodium 142 mmol/L (137-145); Total Protein 8.6 g/dL (6.3-8.2)
--- NOTE | 2019-12-26 01:24 | ED.NAVMDI ---
HPI - Nausea/Vomiting/Diarrhea General Chief complaint: Nausea/Vomiting/Diarrhea Stated complaint: vomiting blood Time Seen by Provider: 12/26/19 01:24 Source: patient Mode of arrival: Ambulatory Limitations: no limitations History of Present Illness HPI Narrative: The patient developed nausea yesterday. He developed emesis today, he has had multiple episodes of emesis. He describes a small amount of blood after 1 episode emesis. He has had no melena, or lower GI bleed. He has a prior history of been on Protonix for hiatal hernia, he has been eye that medication for 5 days. He also has a history of cannabinoid hyperemesis. He has been seen on multiple occasions for cannabinoid hyperemesis or cyclic vomiting. He has no prior history of GI bleed. He is not drinking alcohol. He has no history of liver disease. He is on change smoking, as well as smoking marijuana. He has no melena, or suggestive lower GI bleeding. He has no fever chills with current episodes of emesis. Also, he is on medications for hypertension. He apparently is not taking his regular medications today. He has associated chest pain or dyspnea. He denies headache. He has upper abdominal discomfort with nausea and vomiting. Related Data Home Medications Medication Instructions Recorded Confirmed aspirin 325 mg PO DAILY #0 02/03/12 08/17/18 Syringes 1 syr MISCELLANEOUS DIRECTED 08/17/18 08/17/18 atorvastatin 1 tab PO QPM 08/17/18 08/17/18 glyburide 2 tab PO BID 08/17/18 08/17/18 insulin NPH isoph U-100 human 36 units SUBCUT BID 08/17/18 08/17/18 [Humulin N NPH U-100 Insulin] losartan 1 tab PO DAILY 08/17/18 08/17/18 metformin 1 tab PO BID 08/17/18 08/17/18 metoprolol succinate 1 tab PO DAILY 08/17/18 08/17/18 nitroglycerin 1 patch TOPICAL DAILY 08/17/18 08/17/18 omeprazole 1 cap PO DAILY 08/17/18 08/17/18 Previous Rx's Medication Instructions Recorded nitroglycerin [Nitrostat] 0.4 mg SUBLINGUAL SEE INSTRUCTIONS 04/02/13 #2 bot ondansetron [Zofran ODT] 4 mg PO Q6-8H PRN #14 tab 08/17/18 ondansetron 4 mg PO Q8H PRN #20 tab 04/15/19 promethazine [Phenergan] 25 mg OK Q6H PRN #12 each 04/15/19 ondansetron 4 mg PO Q6-8H PRN #20 tab 12/26/19 pantoprazole [Protonix] 40 mg PO QAM #30 tab 12/26/19 Allergies Allergy/AdvReac Type Severity Reaction Status Date / Time No Known Drug Allergies Allergy Verified 04/15/19 15:31 Review of Systems Review of Systems ROS Unobtainable: All systems reviewed & are unremarkable except as noted in HPI and below Constitutional Constitutional: Denies chills, Denies fever(s), Denies lethargy, Denies stops breathing during sleep and Denies weakness ENT Ears, Nose, Mouth, and Throat: Denies hoarseness, Denies neck pain and Reports sore throat Cardiovascular Cardiovascular: Denies chest pain, Denies irregular heart rhythm, Denies lightheadedness, Denies palpitations, Denies dyspnea and Denies orthopnea Respiratory Respiratory: Denies cough, Denies dyspnea and Denies wheezing Gastrointestinal Gastrointestinal: Denies abdominal pain, Denies change in bowel habits, Denies diarrhea, Denies nausea and Reports vomiting Genitourinary Genitourinary: Denies hematuria, Denies flank pain and Denies urinary incontinence Musculoskeletal Musculoskeletal: Denies back pain, Denies neck pain and Denies numbness Integumentary/Breasts Skin/Breast: Denies pruritus, Denies erythema and Denies rash Neurologic Neurologic: Denies confusion, Denies numbness and Denies weakness Psychiatric Psychiatric: Denies anxiety and Denies confusion Endocrine Endocrine: Denies palpitations Hematologic/Lymphatic Hematologic/Lymphatic: Denies easy bleeding Allergic/Immunologic Allergic/Immunologic: Denies wheezing Patient History Medical History Cannabinoid hyperemesis syndrome (Acute) Coronary artery disease (Acute) Diabetes (Acute) Gastroesophageal reflux disease (Acute) Hypertension (Acute) Surgical History No pertinent past surgical history (Acute) Social History Smoking Status: Current every day smoker Smoking Status: Current every day smoker Substance Use Type: marijuana Exam Initial Vital Signs Initial Vital Signs: Vital Signs Temperature 98 F 12/25/19 23:47 Pulse Rate 107 H 12/25/19 23:47 Respiratory Rate 18 12/25/19 23:47 Blood Pressure 181/101 H 12/25/19 23:47 Pulse Oximetry 98 12/25/19 23:47 Const General: cooperative and well developed Nutritional Appearance: well nourished [facility] Head: normocephalic and atraumatic Nose: external nose normal Face and sinus: sinuses nontender, face symmetric, no sinus tenderness and No dry mucous membranes Mouth: oral mucosae normal and moist mucous membranes Teeth and gingiva: dentition normal Throat: tonsils normal and uvula midline Eyes Conjunctivae: conjunctivae normal Neck Neck: No JVD Resp Effort & Inspection: normal respiratory effort and able to speak in complete sentences Auscultation: clear to auscultation bilaterally, no rales, no rhonchi and no wheezes Cardio Rate: regular rate Rhythm: regular rhythm Heart Sounds: no click, no gallops, no murmurs and no rubs Pulses: normal peripheral pulses GI Inspection: non-distended Palpation: soft, no hepatosplenomegaly, No guarding, No pulsatile mass and No tender Auscultation: normal bowel sounds Rectal Exam: visual inspection normal, normal sphincter tone, heme negative stool and No hemorrhoids Skin General: no rashes or lesions noted, No jaundice and No petechiae Neuro General: alert, oriented x3, gait normal and no focal motor deficits Extrem General: full ROM, no pedal edema and no calf tenderness Course Course Course Narrative: The patient complained of emesis, with blood. His H/H is stable. His rectal exam is negative. I gave him IV Protonix, restarting his Protonix. I gave him Zofran for nausea. His blood pressure was elevated, he did not take his blood pressure medications earlier today. He is advised to be compliant with medications. He is advised to give of tobacco and marijuana abuse. He had an additional episode of emesis here. He is advised to use the Zofran as needed for nausea, yet return here if necessary. He is cleared advised to return if he develops significant bloody emesis. He has been noncompliant with blood pressure medication, his blood pressure at times greater than 200 here. He was given losartan and metoprolol, his regular medications that he is not take yesterday. Prior to discharge his systolic blood pressure had improved to less than 150. Prior to discharge a talk the patient about medication compliance. He should avoid running IVs medications. He should take his medications. I advised him to quit smoking marijuana and tobacco. I advised him to arrange follow-up with his doctor, he should seek consultation with a administrative services director. His glucose is elevated. He is doing better job of managing his diabetes. He is invited to return here to the ER at any time, but he needs to care better for himself. Orders Ordered: ED Orders 12/26/19 00:20 Complete Blood Count AUTO DIFF Stat Comprehensive Metabolic Panel Stat PTT [Partial Thromboplastin Time] Stat Prothrombin Time INR Stat Discontinued Medications Losartan Potassium (Cozaar) 50 mg PO NOW ONE Stop: 12/26/19 02:33 Last Admin: 12/26/19 02:56 Dose: 50 mg Documented by: ARMEN Metoprolol Tartrate (Lopressor) 25 mg PO NOW ONE Stop: 12/26/19 02:33 Last Admin: 12/26/19 02:56 Dose: 25 mg Documented by: ARMEN Ondansetron HCl (Zofran) 4 mg IV NOW ONE Stop: 12/26/19 00:01 Last Admin: 12/26/19 00:07 Dose: 4 mg Documented by: ARMEN Pantoprazole Sodium (Protonix) 40 mg IV NOW ONE Stop: 12/26/19 01:58 Last Admin: 12/26/19 02:05 Dose: 40 mg Documented by: ARMEN Vital Signs Vital signs: Vital Signs - 8 hr 12/25/19 23:47 12/26/19 02:13 12/26/19 02:56 Temperature 98 F Pulse Rate 107 H 103 H 90 Respiratory Rate 18 Blood Pressure 181/101 H 193/89 H Blood Pressure [Left Arm] 193/89 H Pulse Oximetry 98 93 12/26/19 02:57 12/26/19 03:50 12/26/19 04:00 Temperature Pulse Rate 104 H 102 H 94 H Respiratory Rate 17 17 Blood Pressure Blood Pressure [Left Arm] 208/93 H 177/88 H 147/67 H Pulse Oximetry 92 97 93 MDM - Nausea/Vomiting/Diarrhea Lab Data Result diagrams: 12/26/19 00:20 12/26/19 00:20 Labs: Lab Results 12/26/19 12/26/19 12/26/19 Range/Units 00:20 00:20 00:20 WBC 13.8 H (4.5-11.0) X10^3/uL RBC 5.45 (4.5-5.9) X10^6/uL Hgb 16.0 (13.5-17.5) g/dL Hct 47.2 (41-53) % MCV 86.7 (80-100) fL MCH 29.3 (26-34) PG MCHC 33.8 (30-36) % RDW 13.7 (11.6-14.8) % Plt Count 310 (150-400) X10^3/uL Neut % (Auto) 81.1 H (50-75) % Lymph % (Auto) 10.5 L (25-40) % [place] % (Auto) 5.7 (3-14) % Eos % (Auto) 2.3 (2-4) % Baso % (Auto) 0.4 (0-2) % Neut # (Auto) 86388 H (3284-5808) /uL Lymph # (Auto) 1400 (3907-0027) /uL [place] # (Auto) 800 (0-900) /uL Eos # (Auto) 300 (0-450) /uL Baso # (Auto) 0 (0-100) /uL PT 11.6 (10.1-12.7) SECONDS INR 1.0 (0.9-1.3) APTT 26 L D (26.4-36.2) SECONDS Sodium 142 (137-145) mmol/L Potassium 4.6 (3.4-5.1) mmol/L Chloride 99 (98-107) mmol/L Carbon Dioxide 25 (22-32) mmol/L BUN 14 (9-20) mg/dL Creatinine 0.80 (0.66-1.25) mg/dL Estimated GFR > 60.0 (>60) mL/min BUN/Creatinine Ratio 17.5 (6-22) Glucose 240 H (80-110) mg/dL Calcium 10.6 H (8.4-10.2) mg/dL Total Bilirubin 0.7 (0.2-1.3) mg/dL AST 34 (17-59) IU/L ALT 27 (<50) IU/L Alkaline Phosphatase 73 (38-126) U/L Total Protein 8.6 H (6.3-8.2) g/dL Albumin 5.1 H (3.5-5.0) g/dL Globulin 3.5 (1.7-4.1) g/dL Albumin/Globulin Ratio 1.5 (1.0-2.8) Discharge Plan Departure Patient Disposition: Home Clinical Impression: Acute upper GI bleed Hypertension Qualifiers: Hypertension type: essential hypertension Qualified Code(s): I10 - Essential (primary) hypertension Instructions: Gastrointestinal Bleeding Activity Restrictions/Additional Instructions: Protonix 40 mg daily. Zofran every 4 hours as needed for nausea. I recommend you cease using tobacco as well as marijuana. Follow-up with your doctor, I would recommend you see GI consultation for further evaluation of your stomach. Return the ER for increased vomiting, or increased bleeding. Prescriptions: New pantoprazole [Protonix] 40 mg tablet,delayed release (DR/EC) 40 mg PO QAM Qty: 30 RF: 0 ondansetron 4 mg tablet,disintegrating 4 mg PO Q6-8H PRN (Reason: nausea and vomiting) Qty: 20 RF: 0 No Action aspirin 325 mg Tablet,Delayed Release (Dr/Ec) 325 mg PO DAILY Qty: 0 RF: 0 nitroglycerin [Nitrostat] 0.4 MG tablet, sublingual 0.4 mg Sublingual SEE INSTRUCTIONS Qty: 2 RF: PRN promethazine [Phenergan] 25 mg suppository 25 mg OK Q6H PRN (Reason: nausea and vomiting) Qty: 12 RF: 0 ondansetron 4 mg tablet,disintegrating 4 mg PO Q8H PRN (Reason: nausea and vomiting) Qty: 20 RF: 0 atorvastatin 40 mg tablet 1 tab PO QPM RF: 0 glyburide 5 mg tablet 2 tab PO BID RF: 0 metformin 1,000 mg tablet 1 tab PO BID RF: 0 insulin NPH isoph U-100 human [Humulin N NPH U-100 Insulin] 100 unit/mL suspension 36 units subcut BID RF: 0 omeprazole 20 mg capsule,delayed release(DR/EC) 1 cap PO DAILY RF: 0 metoprolol succinate 25 mg tablet extended release 24 hr 1 tab PO DAILY RF: 0 losartan 100 mg tablet 1 tab PO DAILY RF: 0 nitroglycerin 0.2 mg/hr patch 24 hour 1 patch Topical DAILY RF: 0 Syringes 1 syr miscellaneous DIRECTED RF: 0 ondansetron [Zofran ODT] 4 mg tablet,disintegrating 4 mg PO Q6-8H PRN (Reason: nausea and vomiting) Qty: 14 RF: 0
[2019-12-26] MEDS: PANTOPRAZOLE 40 MG VIAL IV (02:05)
[2019-12-26 02:13] VITALS: BP 193/89; PULSE 103; O2SAT 93
[2019-12-26 02:56] VITALS: BP 193/89; PULSE 90
[2019-12-26] MEDS: LOSARTAN 50 MG TABLET PO (02:56)
[2019-12-26] MEDS: METOPROLOL IR 25 MG TABLET PO (02:56)
[2019-12-26 02:57] VITALS: BP 208/93; PULSE 104; O2SAT 92
[2019-12-26 03:50] VITALS: BP 177/88; PULSE 102; RESP 17; O2SAT 97
[2019-12-26 04:00] VITALS: BP 147/67; PULSE 94; RESP 17; O2SAT 93
== END 2019-12-26 04:25 | disposition home or self-care (01) ==
PROVIDERS: Emergency Provider Emergency Medicine
DX: K92.2 Gastrointestinal hemorrhage, unspecified (principal); I10 Essential (primary) hypertension; E11.9 Type 2 diabetes mellitus without complications; Z72.0 Tobacco use; F12.90 Cannabis use, unspecified, uncomplicated
CPT/HCPCS: 36415; 80053; 85025; 85610; 85730; 96374; 96375; 99284; C9113; J2405

== ENCOUNTER 2020-10-02 11:44 | Emergency (ER) | payer OTHER, MEDICAID, SELFPAY ==
[2020-10-02] VITALS (9 sets, daily range): BP systolic 122–154; BP diastolic 64–83; PULSE 100–117; RESP 11–21; TEMP 36.7; O2SAT 94–97; BMI 36.1
[2020-10-02 12:10] LABS: Add Manual Diff / Slide Review NO; Basophils Absolute Auto 100 /uL (0-100); Basophils Percent Auto 0.6 % (0-2); Eosinophils Absolute Auto 0 /uL (0-450); Hematocrit 45.9 % (41-53); Hemoglobin 15.4 g/dL (13.5-17.5); Lymphocytes Absolute Auto 700 /uL (1100-4500); Lymphocytes Percent Auto 4.1 % (25-40); Mean Corpuscular HGB Conc 33.5 % (30-36); Mean Corpuscular Hemoglobin 29.2 PG (26-34); Mean Corpuscular Volume 87.2 fL (80-100); Monocytes Absolute Auto 400 /uL (0-900); Monocytes Percent Auto 2.4 % (3-14); Neutrophils Absolute Auto 14800 /uL (1500-7000); Neutrophils Percent Auto 92.9 % (50-75); Platelet Count 310 X10^3/uL (150-400); Red Blood Cell Count 5.27 X10^6/uL (4.5-5.9); Red Cell Distribution Width 14.9 % (11.6-14.8)
[2020-10-02] MEDS: SODIUM CHLORIDE 0.9% 1,000 ML 1000 ML IV (12:17)
[2020-10-02] MEDS: PANTOPRAZOLE 40 MG VIAL IV (12:17)
[2020-10-02 12:21] LABS: HEMOLYSIS < 15 (0-50)
[2020-10-02 12:28] LABS: Alanine Aminotransferase 36 IU/L (<50); Albumin 5.1 g/dL (3.5-5.0); Albumin Globulin Ratio 1.5 (1.0-2.8); Alkaline Phosphatase 68 U/L (38-126); Aspartate Aminotransferase 32 IU/L (17-59); Bilirubin Total 0.9 mg/dL (0.2-1.3); Blood Urea Nitrogen 18 mg/dL (9-20); Calcium 9.9 mg/dL (8.4-10.2); Carbon Dioxide 23 mmol/L (22-32); Chloride 91 mmol/L (98-107); Creatine Kinase 221 U/L (55-170); Estimated Glomerular Filt Rate > 60.0 mL/min (>60); Ethanol (ETOH) < 10 mg/dL; Globulin 3.4 g/dL (1.7-4.1); Glucose 351 mg/dL (80-110); Lipase 83 U/L (23-300); Magnesium 1.5 mg/dL (1.6-2.3); Phosphorous 4.5 mg/dL (2.3-3.7); Potassium 4.1 mmol/L (3.4-5.1); Sodium 134 mmol/L (137-145); Total Protein 8.5 g/dL (6.3-8.2)
--- NOTE | 2020-10-02 12:31 | ED_ITS ---
HPI - Nausea/Vomiting/Diarrhea General Chief complaint: Nausea/Vomiting/Diarrhea Stated complaint: cyclic vomiting Time Seen by Provider: 10/02/20 11:49 Source: patient Mode of arrival: Ambulatory Limitations: no limitations History of Present Illness HPI Narrative: 60-year-old male who has a longstanding history of cannabinoid hyperemesis syndrome who is here for 24 hours of increase in his nausea and vomiting. He does state that he has had coffee-ground emesis in the past secondary to vomiting after he ?empties his stomach ?and he reports he is having some of that today as well. He does report increasing the amount of marijuana he has been smoking recently. He also states that yesterday he had an episode where he became very sweaty and then woke up noticing that the laptop that he was using was on the floor in the tray that was sitting in front of him was knocked over. He is unsure as to what happened during that time. He does state that he smoked marijuana just prior to the event happening. He also reported that his blood sugar was elevated in his blood pressure was elevated yesterday. He called the nurse advice line and was told to come to the emergency department. Related Data Home Medications Medication Instructions Recorded Confirmed aspirin 325 mg PO DAILY #0 02/03/12 08/17/18 Syringes 1 syr MISCELLANEOUS DIRECTED 08/17/18 08/17/18 atorvastatin 1 tab PO QPM 08/17/18 08/17/18 glyburide 2 tab PO BID 08/17/18 08/17/18 insulin NPH isoph U-100 human 36 units SUBCUT BID 08/17/18 08/17/18 [Humulin N NPH U-100 Insulin] losartan 1 tab PO DAILY 08/17/18 08/17/18 metformin 1 tab PO BID 08/17/18 08/17/18 metoprolol succinate 1 tab PO DAILY 08/17/18 08/17/18 nitroglycerin 1 patch TOPICAL DAILY 08/17/18 08/17/18 omeprazole 1 cap PO DAILY 08/17/18 08/17/18 Previous Rx's Medication Instructions Recorded nitroglycerin [Nitrostat] 0.4 mg SUBLINGUAL SEE INSTRUCTIONS 04/02/13 #2 bot ondansetron [Zofran ODT] 4 mg PO Q6-8H PRN #14 tab 10/25/18 ondansetron 4 mg PO Q8H PRN #20 tab 04/15/19 promethazine [Phenergan] 25 mg DE Q6H PRN #12 each 04/15/19 ondansetron 4 mg PO Q6-8H PRN #20 tab 12/26/19 pantoprazole [Protonix] 40 mg PO QAM #30 tab 12/26/19 Allergies Allergy/AdvReac Type Severity Reaction Status Date / Time No Known Drug Allergies Allergy Verified 10/02/20 11:58 Review of Systems Constitutional Constitutional: Denies fatigue and Denies headache(s) ENT Ears, Nose, Mouth, and Throat: Denies headache(s) Cardiovascular Cardiovascular: Denies chest pain, Reports syncope and Denies dyspnea Respiratory Respiratory: Denies dyspnea Gastrointestinal Gastrointestinal: Denies abdominal pain, Reports nausea and Reports vomiting Genitourinary Genitourinary: Denies dysuria Genitourinary: Denies dysuria Musculoskeletal Musculoskeletal: Denies arthralgias and Denies myalgias Integumentary/Breasts Skin/Breast: Denies lesions and Denies rash Neurologic Neurologic: Reports confusion, Reports syncope and Denies headache(s) Psychiatric Psychiatric: Reports confusion Endocrine Endocrine: Denies fatigue Hematologic/Lymphatic Hematologic/Lymphatic: Denies easy bleeding and Denies easy bruising Allergic/Immunologic Allergic/Immunologic: Denies urticaria Patient History Medical History (Updated 10/02/20 @ 15:04 by Jorge Luis Shields DO) Cannabinoid hyperemesis syndrome Coronary artery disease Diabetes Gastroesophageal reflux disease Hypertension Surgical History No pertinent past surgical history Social History Smoking Status: Current every day smoker Smoking Status: Current every day smoker Substance Use Type: marijuana Exam Initial Vital Signs Initial Vital Signs: Vital Signs Temperature 98.1 F 10/02/20 11:53 Pulse Rate 114 H 10/02/20 11:53 Respiratory Rate 15 10/02/20 11:53 Blood Pressure 136/83 10/02/20 11:53 Pulse Oximetry 97 10/02/20 11:53 Const General: cooperative and comfortable Limitations: mental status not altered HENMT Head: normal to inspection and normocephalic Resp Effort & Inspection: normal respiratory effort Cardio Rate: tachycardic Skin Lesions: no lesions Rashes: no rashes Neuro General: patient alert, patient awake and patient oriented x3 Cognition: normal cognition Speech: speech normal Gait: normal gait Extrem General: normal to inspection and capillary refill normal Psych Appearance: grossly normal and well kempt Scores GCS [place] coma scale eye opening: Spontaneous [place] coma scale verbal response: Orientated [place] coma scale motor response: Obey commands [place] coma scale total score: 15 Course Orders Ordered: ED Orders 10/02/20 11:58 Complete Blood Count AUTO DIFF Stat Comprehensive Metabolic Panel Stat Ethanol (ETOH) Stat Hemoglobin A1C% w Est Avg Glu Stat Ketones (Beta-Hydroxybutyrate) Stat Lipase Stat Magnesium Stat Phosphorous Stat Troponin & CK Cardiac Panel Stat 10/02/20 12:01 EKG-12 Lead Stat Discontinued Medications Sodium Chloride (Normal Saline 0.9%) 1,000 mls @ 1,000 mls/hr IV BOLUS ONE Stop: 10/02/20 12:59 Last Admin: 10/02/20 12:17 Dose: 1,000 mls/hr Documented by: BLAINE Pantoprazole Sodium (Pantoprazole 40 Mg Vial) 40 mg IV NOW ONE Stop: 10/02/20 12:01 Last Admin: 10/02/20 12:17 Dose: 40 mg Documented by: BLAINE Vital Signs Vital signs: Vital Signs - 8 hr 10/02/20 11:53 10/02/20 11:57 10/02/20 12:00 Temperature 98.1 F Pulse Rate 114 H 115 H 117 H Respiratory Rate 15 21 Blood Pressure 136/83 122/75 Pulse Oximetry 97 97 97 10/02/20 12:30 10/02/20 13:00 10/02/20 13:30 Temperature Pulse Rate 112 H 103 H 104 H Respiratory Rate 21 15 11 L Blood Pressure 133/74 136/65 154/72 H Pulse Oximetry 94 95 96 MDM - Nausea/Vomiting/Diarrhea Medical Records Attestation: I reviewed the patient's medical records. Lab Data Attestation: I reviewed the patient's lab results. Result diagrams: 10/02/20 11:58 10/02/20 11:58 Labs: Lab Results 10/02/20 10/02/20 10/02/20 Range/Units 11:58 11:58 11:58 WBC 16.0 H (4.5-11.0) X10^3/uL RBC 5.27 (4.5-5.9) X10^6/uL Hgb 15.4 (13.5-17.5) g/dL Hct 45.9 (41-53) % MCV 87.2 (80-100) fL MCH 29.2 (26-34) PG MCHC 33.5 (30-36) % RDW 14.9 H (11.6-14.8) % Plt Count 310 (150-400) X10^3/uL Neut % (Auto) 92.9 H (50-75) % Lymph % (Auto) 4.1 L (25-40) % [place] % (Auto) 2.4 L (3-14) % Eos % (Auto) 0.0 L (2-4) % Baso % (Auto) 0.6 (0-2) % Neut # (Auto) 18077 H (8558-6492) /uL Lymph # (Auto) 700 L (8951-6820) /uL [place] # (Auto) 400 (0-900) /uL Eos # (Auto) 0 (0-450) /uL Baso # (Auto) 100 (0-100) /uL Sodium 134 L (137-145) mmol/L Potassium 4.1 (3.4-5.1) mmol/L Chloride 91 L (98-107) mmol/L Carbon Dioxide 23 (22-32) mmol/L BUN 18 (9-20) mg/dL Creatinine 0.82 (0.66-1.25) mg/dL Estimated GFR > 60.0 (>60) mL/min BUN/Creatinine Ratio 22.0 (6-22) Glucose 351 H (80-110) mg/dL Hemoglobin A1c (4.0-6.0) % Calcium 9.9 (8.4-10.2) mg/dL Phosphorus 4.5 H (2.3-3.7) mg/dL Magnesium 1.5 L (1.6-2.3) mg/dL Total Bilirubin 0.9 (0.2-1.3) mg/dL AST 32 (17-59) IU/L ALT 36 (<50) IU/L Alkaline Phosphatase 68 (38-126) U/L Total Creatine Kinase 221 H Cancelled (55-170) U/L CK-MB (CK-2) 2.60 H Cancelled (<2.37) ng/mL CK-MB (CK-2) Rel Index 1.2 L Cancelled (1.5-5.0) % Troponin I < 0.012 Cancelled (0.01-0.034) ng/mL Total Protein 8.5 H (6.3-8.2) g/dL Albumin 5.1 H (3.5-5.0) g/dL Globulin 3.4 (1.7-4.1) g/dL Albumin/Globulin Ratio 1.5 (1.0-2.8) Lipase 83 (23-300) U/L Ethyl Alcohol < 10 ( - 10) mg/dL Ketones 3.86 H (<0.27) mmol/L 10/02/20 10/02/20 Range/Units 11:58 11:58 WBC (4.5-11.0) X10^3/uL RBC (4.5-5.9) X10^6/uL Hgb (13.5-17.5) g/dL Hct (41-53) % MCV (80-100) fL MCH (26-34) PG MCHC (30-36) % RDW (11.6-14.8) % Plt Count (150-400) X10^3/uL Neut % (Auto) (50-75) % Lymph % (Auto) (25-40) % [place] % (Auto) (3-14) % Eos % (Auto) (2-4) % Baso % (Auto) (0-2) % Neut # (Auto) (9077-2249) /uL Lymph # (Auto) (3287-8791) /uL [place] # (Auto) (0-900) /uL Eos # (Auto) (0-450) /uL Baso # (Auto) (0-100) /uL Sodium (137-145) mmol/L Potassium (3.4-5.1) mmol/L Chloride (98-107) mmol/L Carbon Dioxide (22-32) mmol/L BUN (9-20) mg/dL Creatinine (0.66-1.25) mg/dL Estimated GFR (>60) mL/min BUN/Creatinine Ratio (6-22) Glucose (80-110) mg/dL Hemoglobin A1c 10.7 H (4.0-6.0) % Calcium (8.4-10.2) mg/dL Phosphorus Cancelled (2.3-3.7) mg/dL Magnesium Cancelled (1.6-2.3) mg/dL Total Bilirubin (0.2-1.3) mg/dL AST (17-59) IU/L ALT (<50) IU/L Alkaline Phosphatase (38-126) U/L Total Creatine Kinase (55-170) U/L CK-MB (CK-2) (<2.37) ng/mL CK-MB (CK-2) Rel Index (1.5-5.0) % Troponin I (0.01-0.034) ng/mL Total Protein (6.3-8.2) g/dL Albumin (3.5-5.0) g/dL Globulin (1.7-4.1) g/dL Albumin/Globulin Ratio (1.0-2.8) Lipase (23-300) U/L Ethyl Alcohol ( - 10) mg/dL Ketones Cancelled (<0.27) mmol/L ECG Data Attestation: I personally reviewed and interpreted this ECG as follows: Prior ECG tracings: not available for review Interpretation: Sinus tachycardia Ventricular rate of 110 Occasional PVC Normal QRS Normal QTC No ST T wave changes MDM Narrative Medical decision making narrative: Patient states that he actually was not very nauseous here in the ER but was earlier. He thinks he is drinking enough fluids. His blood sugars elevated but no indication for DKA. His heart rate improved fluids. He is tolerating oral intake. States that he really came in because these episodes that he has where he thinks that he is passing out. They do seem to be around the time that he is smoking marijuana. The do not sound like seizures. Low suspicion for CVA or TIA. Informed patient that he should consider quitting smoking marijuana as this seems to cause most of his issues to include a cyclic vomiting and the passing out. Informed that he does need to be drinking more water at home. He does state that he has had problems controlling his blood sugars on the past several months. He should follow-up with his primary doctor for further evaluation and treatment. He was given return precautions. He expressed understanding and agreement. Discharge Plan Departure Patient Disposition: Home Clinical Impression: Hyperglycemia Instructions: Cannabinoid Hyperemesis Syndrome Activity Restrictions/Additional Instructions: Continue all of your medications as directed. I do recommend that you consider decreasing/stopping the marijuana use as this most likely is contributing to many of the symptoms that you are having. Also recommend you contact your primary doctor to discuss your blood sugars. Return to the emergency department for any new or worsening symptoms Prescriptions: No Action aspirin 325 mg Tablet,Delayed Release (Dr/Ec) 325 mg PO DAILY Qty: 0 RF: 0 nitroglycerin [Nitrostat] 0.4 MG tablet, sublingual 0.4 mg Sublingual SEE INSTRUCTIONS Qty: 2 RF: PRN promethazine [Phenergan] 25 mg suppository 25 mg DE Q6H PRN (Reason: nausea and vomiting) Qty: 12 RF: 0 ondansetron 4 mg tablet,disintegrating 4 mg PO Q8H PRN (Reason: nausea and vomiting) Qty: 20 RF: 0 atorvastatin 40 mg tablet 1 tab PO QPM RF: 0 glyburide 5 mg tablet 2 tab PO BID RF: 0 metformin 1,000 mg tablet 1 tab PO BID RF: 0 insulin NPH isoph U-100 human [Humulin N NPH U-100 Insulin] 100 unit/mL suspension 36 units subcut BID RF: 0 omeprazole 20 mg capsule,delayed release(DR/EC) 1 cap PO DAILY RF: 0 metoprolol succinate 25 mg tablet extended release 24 hr 1 tab PO DAILY RF: 0 losartan 100 mg tablet 1 tab PO DAILY RF: 0 nitroglycerin 0.2 mg/hr patch 24 hour 1 patch Topical DAILY RF: 0 Syringes 1 syr miscellaneous DIRECTED RF: 0 ondansetron [Zofran ODT] 4 mg tablet,disintegrating 4 mg PO Q6-8H PRN (Reason: nausea and vomiting) Qty: 14 RF: 0 pantoprazole [Protonix] 40 mg tablet,delayed release (DR/EC) 40 mg PO QAM Qty: 30 RF: 0 ondansetron 4 mg tablet,disintegrating 4 mg PO Q6-8H PRN (Reason: nausea and vomiting) Qty: 20 RF: 0
[2020-10-02 12:39] LABS: Troponin I < 0.012 ng/mL (0.01-0.034)
[2020-10-02 12:42] LABS: Ketones (Beta-Hydroxybutyrate) 3.86 mmol/L (<0.27)
[2020-10-02 12:43] LABS: CKMB % Relative Index 1.2 % (1.5-5.0)
[2020-10-02 14:11] LABS: Hemoglobin A1C% w Est Avg Glu 10.7 % (4.0-6.0)
== END 2020-10-02 15:27 | disposition home or self-care (01) ==
PROVIDERS: Emergency Provider Emergency Medicine
DX: E11.65 Type 2 diabetes mellitus with hyperglycemia (principal); Z79.4 Long term (current) use of insulin; R11.2 Nausea with vomiting, unspecified; F12.90 Cannabis use, unspecified, uncomplicated; I25.10 Atherosclerotic heart disease of native coronary artery without angina pectoris; I11.0 Hypertensive heart disease with heart failure; K21.9 Gastro-esophageal reflux disease without esophagitis; R00.0 Tachycardia, unspecified
CPT/HCPCS: 36415; 80053; 80320; 82009; 82550; 82553; 83036; 83690; 83735; 84100; 84484; 85025; 93005; 93010; 96361; 96374; 99283; 99284; C9113

== ENCOUNTER 2021-02-02 12:19 | Emergency (ER) | payer OTHER, MEDICAID, SELFPAY ==
[2021-02-02] VITALS (8 sets, daily range): BP systolic 108–183; BP diastolic 63–89; PULSE 63–98; RESP 15–28; TEMP 36.6; O2SAT 83–99; BMI 50.9
[2021-02-02 13:38] LABS: Add Manual Diff / Slide Review NO; Basophils Absolute Auto 0 /uL (0-100); Basophils Percent Auto 0.3 % (0-2); Eosinophils Absolute Auto 0 /uL (0-450); Hematocrit 45.5 % (41-53); Hemoglobin 15.3 g/dL (13.5-17.5); Lymphocytes Absolute Auto 1500 /uL (1100-4500); Lymphocytes Percent Auto 9.2 % (25-40); Mean Corpuscular HGB Conc 33.5 % (30-36); Mean Corpuscular Hemoglobin 29.4 PG (26-34); Mean Corpuscular Volume 87.6 fL (80-100); Monocytes Absolute Auto 1200 /uL (0-900); Monocytes Percent Auto 7.9 % (3-14); Neutrophils Absolute Auto 13000 /uL (1500-7000); Neutrophils Percent Auto 82.6 % (50-75); Platelet Count 311 X10^3/uL (150-400); Red Blood Cell Count 5.19 X10^6/uL (4.5-5.9); White Blood Cell Count 15.8 X10^3/uL (4.5-11.0)
[2021-02-02] MEDS: PANTOPRAZOLE 40 MG VIAL 80 MG IV (13:38)
[2021-02-02] MEDS: SODIUM CHLORIDE 0.9% 1,000 ML 1000 ML IV (13:38)
[2021-02-02] MEDS: ONDANSETRON 4 MG/2 ML INJ IV (13:38)
[2021-02-02 13:41] LABS: INR 1.1 (0.9-1.3); Prothrombin Time 12.5 SECONDS (10.1-12.7)
[2021-02-02 13:44] LABS: PTT Partial Thromboplastin Tim 29 SECONDS (26.4-36.2)
--- NOTE | 2021-02-02 13:48 | PC.NURSE ---
patient has previous episodes of cyclic vomiting from marijuana. He feels this episode is different and that hes been having bouts of emesis that appear to have coffee ground vomit.
[2021-02-02 13:52] LABS: Alanine Aminotransferase 34 IU/L (<50); Albumin 5.1 g/dL (3.5-5.0); Albumin Globulin Ratio 1.6 (1.0-2.8); Alkaline Phosphatase 59 U/L (38-126); Aspartate Aminotransferase 53 IU/L (17-59); BUN Creatinine Ratio 33.7 (6-22); Bilirubin Total 0.8 mg/dL (0.2-1.3); Blood Urea Nitrogen 28 mg/dL (9-20); Calcium 10.3 mg/dL (8.4-10.2); Carbon Dioxide 30 mmol/L (22-32); Chloride 89 mmol/L (98-107); Estimated Glomerular Filt Rate > 60.0 mL/min (>60); Globulin 3.2 g/dL (1.7-4.1); Glucose 279 mg/dL (80-110); HEMOLYSIS 17 (0-50); Lipase 41 U/L (23-300); Potassium 3.8 mmol/L (3.4-5.1); Sodium 132 mmol/L (137-145); Total Protein 8.3 g/dL (6.3-8.2)
--- NOTE | 2021-02-02 14:10 | ED.NAVMDI ---
HPI - Nausea/Vomiting/Diarrhea General Chief complaint: Nausea/Vomiting/Diarrhea Stated complaint: vomiting since 8am Tuesday, blood in vomit Time Seen by Provider: 02/02/21 13:54 Source: patient Mode of arrival: Ambulatory Limitations: no limitations History of Present Illness HPI Narrative: Patient is 60-year-old male with history of daily marijuana use, coronary artery disease with stents, diabetes GERD presenting with 2 days of vomiting. He reports coffee ground emesis for 2 days uncontrollable. He did have some home nausea medication which did not seem to be helping. He has got diffuse abdominal pain. No diarrhea. He occasionally has bright red blood. He denies any dizziness lightheadedness or shortness of breath. His he had a brief episode chest pain while in the ED but no longer has it. I says this is similar to his previous episodes of is hyperemesis vomiting MD complaint: nausea and vomiting Related Data Home Medications Medication Instructions Recorded Confirmed aspirin 325 mg PO DAILY #0 02/03/12 08/17/18 Syringes 1 syr MISCELLANEOUS DIRECTED 08/17/18 08/17/18 atorvastatin 1 tab PO QPM 08/17/18 08/17/18 glyburide 2 tab PO BID 08/17/18 08/17/18 insulin NPH isoph U-100 human 36 units SUBCUT BID 08/17/18 08/17/18 [Humulin N NPH U-100 Insulin] losartan 1 tab PO DAILY 08/17/18 08/17/18 metformin 1 tab PO BID 08/17/18 08/17/18 metoprolol succinate 1 tab PO DAILY 08/17/18 08/17/18 nitroglycerin 1 patch TOPICAL DAILY 08/17/18 08/17/18 omeprazole 1 cap PO DAILY 08/17/18 08/17/18 Previous Rx's Medication Instructions Recorded nitroglycerin [Nitrostat] 0.4 mg SUBLINGUAL SEE INSTRUCTIONS 04/02/13 #2 bot ondansetron [Zofran ODT] 4 mg PO Q6-8H PRN #14 tab 08/17/18 ondansetron 4 mg PO Q8H PRN #20 tab 04/15/19 promethazine [Phenergan] 25 mg AK Q6H PRN #12 each 04/15/19 ondansetron 4 mg PO Q6-8H PRN #20 tab 12/26/19 pantoprazole [Protonix] 40 mg PO QAM #30 tab 12/26/19 ondansetron 4 mg PO Q8H PRN #10 tab 02/02/21 promethazine 25 mg AK Q6H PRN #12 ea 02/02/21 Allergies Allergy/AdvReac Type Severity Reaction Status Date / Time No Known Drug Allergies Allergy Verified 10/02/20 11:58 Review of Systems Review of Systems ROS Unobtainable: All systems reviewed & are unremarkable except as noted in HPI and below Constitutional Constitutional: Denies chills, Denies fever(s), Denies lethargy and Denies weakness ENT Ears, Nose, Mouth, and Throat: Denies change in voice, Denies neck pain and Denies sore throat Cardiovascular Cardiovascular: Reports chest pain, Denies chest pain at rest, Denies irregular heart rhythm, Denies palpitations, Denies dyspnea and Denies dyspnea on exertion Respiratory Respiratory: Denies dyspnea and Denies dyspnea on exertion Gastrointestinal Gastrointestinal: Reports as per HPI Musculoskeletal Musculoskeletal: Denies back pain and Denies neck pain Integumentary/Breasts Skin/Breast: Denies pruritus, Denies erythema, Denies rash and Denies wounds Neurologic Neurologic: Denies confusion and Denies weakness Psychiatric Psychiatric: Denies confusion Endocrine Endocrine: Denies palpitations Patient History Medical History (Updated 02/02/21 @ 16:18 by Nohemi Danielson DO) Cannabinoid hyperemesis syndrome Coronary artery disease Diabetes Gastroesophageal reflux disease Hypertension Surgical History No pertinent past surgical history Social History Smoking Status: Current every day smoker Smoking Status: Current every day smoker alcohol intake frequency: 0-2 drinks per day Substance Use Type: marijuana Exam Initial Vital Signs Initial Vital Signs: Vital Signs Temperature 97.8 F 02/02/21 12:22 Pulse Rate 96 H 02/02/21 12:22 Respiratory Rate 16 02/02/21 12:22 Blood Pressure 108/73 02/02/21 12:22 Pulse Oximetry 98 02/02/21 12:22 GENERAL: Alert pleasant 60-year-old male and in no acute distress. HEENT: Head atraumatic,EOMI, pupils reactive, face symmetric, moist mucous membranes CARDIOVASCULAR: Regular rate and rhythm without murmurs, rubs or gallops. RESPIRATORY: Breath sounds equal bilaterally, no wheezes rales or rhonchi. ABDOMEN: Soft mild diffuse tenderness no localization of pain EXTREMITIES: Normal range of motion, no clubbing or edema. Neurovascularly intact NEUROLOGICAL: Alert and oriented x4.Normal gait and speech. Cranial nerves II through XII grossly intact. SKIN: Warm, dry, no laceration, no petechiae, no rashes or lesions. Course Orders Ordered: ED Orders 02/02/21 13:08 EKG-12 Lead Stat 02/02/21 13:14 Complete Blood Count AUTO DIFF Stat Comprehensive Metabolic Panel Stat Lipase Stat Partial Thromboplastin Time Stat Prothrombin Time INR Stat Type and Screen Stat 02/02/21 14:44 Troponin & CK Cardiac Panel Stat 02/02/21 15:44 XR chest 1V Stat Discontinued Medications Diphenhydramine HCl (Diphenhydramine 50 Mg/Ml Vial) 25 mg IV NOW ONE Stop: 02/02/21 14:23 Last Admin: 02/02/21 14:25 Dose: 25 mg Documented by: SHELLY Sodium Chloride (Normal Saline 0.9%) 1,000 mls @ 1,000 mls/hr IV BOLUS ONE Stop: 02/02/21 14:08 Last Infusion: 02/02/21 15:57 Dose: 0 mls/hr Documented by: Admin: 02/02/21 13:38 Dose: 1,000 mls/hr Documented by: SHELLY Metoclopramide HCl (Metoclopramide 10 Mg/2 Ml Inj) 10 mg IV NOW ONE Stop: 02/02/21 14:22 Last Admin: 02/02/21 14:25 Dose: 10 mg Documented by: SHELLY Ondansetron HCl (Ondansetron 4 Mg/2 Ml Inj) 4 mg IV NOW ONE Stop: 02/02/21 13:09 Last Admin: 02/02/21 13:38 Dose: 4 mg Documented by: SHELLY Pantoprazole Sodium (Pantoprazole 40 Mg Vial) 80 mg IV NOW ONE Stop: 02/02/21 13:09 Last Admin: 02/02/21 13:38 Dose: 80 mg Documented by: SHELLY Vital Signs Vital signs: Vital Signs - 8 hr 02/02/21 12:22 02/02/21 13:53 02/02/21 14:46 Temperature 97.8 F Pulse Rate 96 H 63 92 H Respiratory Rate 16 24 21 Blood Pressure 108/73 183/89 H Pulse Oximetry 98 99 83 L 02/02/21 15:00 02/02/21 15:30 02/02/21 16:00 Temperature Pulse Rate 88 98 H Respiratory Rate 15 21 Blood Pressure 131/70 113/63 119/69 Pulse Oximetry 97 97 02/02/21 16:30 02/02/21 16:34 Temperature Pulse Rate 95 H 96 H Respiratory Rate 28 H 20 Blood Pressure 119/69 Pulse Oximetry 98 98 MDM - Nausea/Vomiting/Diarrhea Lab Data Attestation: I reviewed the patient's lab results. Result diagrams: 02/02/21 13:14 02/02/21 13:14 Labs: Lab Results 02/02/21 02/02/21 02/02/21 Range/Units 13:14 13:14 13:14 WBC 15.8 H (4.5-11.0) X10^3/uL RBC 5.19 (4.5-5.9) X10^6/uL Hgb 15.3 (13.5-17.5) g/dL Hct 45.5 (41-53) % MCV 87.6 (80-100) fL MCH 29.4 (26-34) PG MCHC 33.5 (30-36) % RDW 14.0 (11.6-14.8) % Plt Count 311 (150-400) X10^3/uL Neut % (Auto) 82.6 H (50-75) % Lymph % (Auto) 9.2 L (25-40) % [place] % (Auto) 7.9 (3-14) % Eos % (Auto) 0.0 L (2-4) % Baso % (Auto) 0.3 (0-2) % Neut # (Auto) 15012 H (7044-2398) /uL Lymph # (Auto) 1500 (1518-2680) /uL [place] # (Auto) 1200 H (0-900) /uL Eos # (Auto) 0 (0-450) /uL Baso # (Auto) 0 (0-100) /uL PT 12.5 (10.1-12.7) SECONDS INR 1.1 (0.9-1.3) APTT 29 (26.4-36.2) SECONDS Sodium 132 L (137-145) mmol/L Potassium 3.8 (3.4-5.1) mmol/L Chloride 89 L (98-107) mmol/L Carbon Dioxide 30 (22-32) mmol/L BUN 28 H (9-20) mg/dL Creatinine 0.83 (0.66-1.25) mg/dL Estimated GFR > 60.0 (>60) mL/min BUN/Creatinine Ratio 33.7 H (6-22) Glucose 279 H (80-110) mg/dL Calcium 10.3 H (8.4-10.2) mg/dL Total Bilirubin 0.8 (0.2-1.3) mg/dL AST 53 (17-59) IU/L ALT 34 (<50) IU/L Alkaline Phosphatase 59 (38-126) U/L Total Creatine Kinase (55-170) U/L CK-MB (CK-2) (<2.37) ng/mL CK-MB (CK-2) Rel Index (1.5-5.0) % Troponin I (0.01-0.034) ng/mL Total Protein 8.3 H (6.3-8.2) g/dL Albumin 5.1 H (3.5-5.0) g/dL Globulin 3.2 (1.7-4.1) g/dL Albumin/Globulin Ratio 1.6 (1.0-2.8) Lipase 41 (23-300) U/L Blood Type Antibody Screen 02/02/21 02/02/21 Range/Units 13:14 14:44 WBC (4.5-11.0) X10^3/uL RBC (4.5-5.9) X10^6/uL Hgb (13.5-17.5) g/dL Hct (41-53) % MCV (80-100) fL MCH (26-34) PG MCHC (30-36) % RDW (11.6-14.8) % Plt Count (150-400) X10^3/uL Neut % (Auto) (50-75) % Lymph % (Auto) (25-40) % [place] % (Auto) (3-14) % Eos % (Auto) (2-4) % Baso % (Auto) (0-2) % Neut # (Auto) (6304-8295) /uL Lymph # (Auto) (2584-7328) /uL [place] # (Auto) (0-900) /uL Eos # (Auto) (0-450) /uL Baso # (Auto) (0-100) /uL PT (10.1-12.7) SECONDS INR (0.9-1.3) APTT (26.4-36.2) SECONDS Sodium (137-145) mmol/L Potassium (3.4-5.1) mmol/L Chloride (98-107) mmol/L Carbon Dioxide (22-32) mmol/L BUN (9-20) mg/dL Creatinine (0.66-1.25) mg/dL Estimated GFR (>60) mL/min BUN/Creatinine Ratio (6-22) Glucose (80-110) mg/dL Calcium (8.4-10.2) mg/dL Total Bilirubin (0.2-1.3) mg/dL AST (17-59) IU/L ALT (<50) IU/L Alkaline Phosphatase (38-126) U/L Total Creatine Kinase 608 H (55-170) U/L CK-MB (CK-2) 3.43 H (<2.37) ng/mL CK-MB (CK-2) Rel Index 0.6 L (1.5-5.0) % Troponin I < 0.012 (0.01-0.034) ng/mL Total Protein (6.3-8.2) g/dL Albumin (3.5-5.0) g/dL Globulin (1.7-4.1) g/dL Albumin/Globulin Ratio (1.0-2.8) Lipase (23-300) U/L Blood Type O Positive Antibody Screen Negative Imaging Data Chest x-ray: Radiologist's Impression: PROCEDURE: XR CHEST 1V INDICATIONS: low 02 sat TECHNIQUE: One view of the chest was acquired. COMPARISON: [facility], , XR CHEST 1V, 08/17/2018, 15:03. FINDINGS: Surgical changes and devices: None. Lungs and pleura: Lungs are clear. No pleural effusions or pneumothorax. Mediastinum: Mediastinal contours appear normal. Heart size is normal. Bones and chest wall: No suspicious bony lesions. Overlying soft tissues appear unremarkable. IMPRESSION: No acute process. Dictated by: Adi Castle M.D. on 02/02/2021 at 16:01 ECG Data Attestation: I personally reviewed and interpreted this ECG as follows: Prior ECG tracings: available for review Interpretation: Normal sinus rhythm rate 108 p.r. interval 152 QRS [address] changes no T-wave inversions similar to previous EKG 10/02/2020 [facility] Narrative Medical decision making narrative: The patient sleeping after Reglan and Benadryl. He is overall doing much better after sleep tolerating ice chips feeling better. I do not suspect GI bleed. He had vomit here which was bile only no sign of coffee-ground emesis. Hemoglobin and hematocrit are stable and in fact within normal range so my suspicion of upper GI bleed is low. Differential diagnosis is cyclic vomiting induced from marijuana versus gastroparesis from diabetes. He seemed to respond well to Reglan. I discussed with him gastric emptying study as an outpatient. Discharge Plan Departure Patient Disposition: Home Clinical Impression: Cyclical vomiting Instructions: DI for Gastroparesis Activity Restrictions/Additional Instructions: *You have been diagnosed with cyclic vomiting *What to do: You may actually have a complication of your diabetes called gastroparesis which is a problem with your stomach emptying. You will need further studies by your PCP in order to diagnose this. 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, abdominal pain, chest pain or any new, worsening or concerning symptoms Prescriptions: New ondansetron 4 mg tablet,disintegrating 4 mg PO Q8H PRN (Reason: nausea and vomiting) Qty: 10 RF: 0 promethazine 25 mg suppository 25 mg AK Q6H PRN (Reason: nausea and vomiting) Qty: 12 RF: 0 No Action aspirin 325 mg Tablet,Delayed Release (Dr/Ec) 325 mg PO DAILY Qty: 0 RF: 0 nitroglycerin [Nitrostat] 0.4 MG tablet, sublingual 0.4 mg Sublingual SEE INSTRUCTIONS Qty: 2 RF: PRN promethazine [Phenergan] 25 mg suppository 25 mg AK Q6H PRN (Reason: nausea and vomiting) Qty: 12 RF: 0 ondansetron 4 mg tablet,disintegrating 4 mg PO Q8H PRN (Reason: nausea and vomiting) Qty: 20 RF: 0 atorvastatin 40 mg tablet 1 tab PO QPM RF: 0 glyburide 5 mg tablet 2 tab PO BID RF: 0 metformin 1,000 mg tablet 1 tab PO BID RF: 0 insulin NPH isoph U-100 human [Humulin N NPH U-100 Insulin] 100 unit/mL suspension 36 units subcut BID RF: 0 omeprazole 20 mg capsule,delayed release(DR/EC) 1 cap PO DAILY RF: 0 metoprolol succinate 25 mg tablet extended release 24 hr 1 tab PO DAILY RF: 0 losartan 100 mg tablet 1 tab PO DAILY RF: 0 nitroglycerin 0.2 mg/hr patch 24 hour 1 patch Topical DAILY RF: 0 Syringes 1 syr miscellaneous DIRECTED RF: 0 ondansetron [Zofran ODT] 4 mg tablet,disintegrating 4 mg PO Q6-8H PRN (Reason: nausea and vomiting) Qty: 14 RF: 0 pantoprazole [Protonix] 40 mg tablet,delayed release (DR/EC) 40 mg PO QAM Qty: 30 RF: 0 ondansetron 4 mg tablet,disintegrating 4 mg PO Q6-8H PRN (Reason: nausea and vomiting) Qty: 20 RF: 0 Referrals: [facility] [Outside]
[2021-02-02] MEDS: METOCLOPRAMIDE 10 MG/2 ML INJ IV (14:25)
[2021-02-02] MEDS: diphenhydrAMINE 50 MG/ML VIAL 25 MG IV (14:25)
--- NOTE | 2021-02-02 14:50 | PC.NURSE ---
patient starts to desat when he falls asleep. He was charted to be a 83% with Room air.
--- NOTE | 2021-02-02 14:53 | PC.NURSE ---
Patient was assessed and told to breathe deeply. His 02 sat went up to 98% with a good pleth
[2021-02-02 15:01] LABS: Creatine Kinase 608 U/L (55-170)
[2021-02-02 15:14] LABS: Troponin I < 0.012 ng/mL (0.01-0.034)
[2021-02-02 15:17] LABS: CKMB % Relative Index 0.6 % (1.5-5.0); Creatine Kinase MB 3.43 ng/mL (<2.37)
--- NOTE | 2021-02-02 15:44 | DI.RAD.S_ITS ---
PROCEDURE: XR CHEST 1V INDICATIONS: low 02 sat TECHNIQUE: One view of the chest was acquired. COMPARISON: [facility], CR, XR CHEST 1V, 08/17/2018, 15:03. FINDINGS: Surgical changes and devices: None. Lungs and pleura: Lungs are clear. No pleural effusions or pneumothorax. Mediastinum: Mediastinal contours appear normal. Heart size is normal. Bones and chest wall: No suspicious bony lesions. Overlying soft tissues appear unremarkable. IMPRESSION: No acute process. Dictated by: Adi Castle M.D. on 02/02/2021 at 16:01 Approved by: Adi Castle M.D. on 02/02/2021 at 16:01
== END 2021-02-02 16:36 | disposition home or self-care (01) ==
PROVIDERS: Emergency Medicine; Emergency Provider Emergency Medicine
DX: R11.15 Cyclical vomiting syndrome unrelated to migraine (principal); R10.9 Unspecified abdominal pain
CPT/HCPCS: 36415; 71045; 80053; 82550; 82553; 83690; 84484; 85025; 85610; 85730; 86850; 86900; 86901; 93005; 93010; 96361; 96374; 96375; 99284; C9113; J1200; J2405; J2765

== ENCOUNTER 2021-04-25 09:55 | Emergency (ER) | payer OTHER, MEDICAID, SELFPAY ==
[2021-04-25 10:15] VITALS: BP 126/78; PULSE 118; RESP 22; TEMP 36.4; O2SAT 98
--- NOTE | 2021-04-25 10:21 | DI.RAD.S_ITS ---
PROCEDURE: XR ACUTE ABDOMEN SERIES INDICATIONS: nausea/ vomiting/ constipation TECHNIQUE: One view chest and two views of the abdomen were acquired. COMPARISON: , , XR ACUTE ABDOMEN SERIES, 04/15/2019, 16:39. , , ABDOMEN ACUTE SERIES, 03/14/2014, 15:05. FINDINGS: Surgical changes and devices: None. Chest: Lungs are clear. Heart size is normal. No pleural effusions. No pneumoperitoneum. Abdomen: Bowel gas pattern is normal. No suspicious calcifications. Visualized solid organ contours appear normal. Bones: No suspicious bony lesions. IMPRESSION: Nonspecific bowel gas pattern, no basilar pneumonia found. Source of current symptomatology is not seen. Dictated by: Ventura Hernandez M.D. on 04/25/2021 at 11:24 Approved by: Ventura Hernandez M.D. on 04/25/2021 at 11:24
[2021-04-25] MEDS: PANTOPRAZOLE 40 MG VIAL IV (11:08)
[2021-04-25] MEDS: METOCLOPRAMIDE 10 MG/2 ML INJ IV (11:08)
[2021-04-25] MEDS: ONDANSETRON 4 MG/2 ML INJ IV (11:08)
[2021-04-25] MEDS: SODIUM CHLORIDE 0.9% 1,000 ML 1000 ML IV ×2 (11:08→12:34)
--- NOTE | 2021-04-25 11:45 | ED.RECABL ---
HPI - Recheck/Abnormal Lab/Rx General Chief Complaint: Recheck/Abnormal Lab/Rx Stated Complaint: diabetes issues, high bp Time Seen by Provider: 04/25/21 11:44 Source: patient Mode of arrival: Ambulatory Limitations: no limitations History of Present Illness HPI narrative: Gentleman with a history of cyclic violent vomiting with daily THC use, coronary artery disease post stenting, diabetes presents with recurrent severe vomiting. He notes that after his last episode of cyclic vomiting he was able to have stain for marijuana for approximately 3 weeks and then had some additional stressors that led him back to marijuana to help control anxiety. His current episode started approximately 3 days ago with progressive episodes of emesis to the point where he was miserable today. He describes today's episode as much more acidic. Notes he is on famotidine and at 1 point in the past had been on omeprazole but his insurance declined additional payment for this. He was concerned because his blood sugars were in the 300 level and his blood pressures were significantly elevated surrounding the episodes of severe nausea and emesis. He describes no chest pain or dyspnea. He has some abdominal pain from the work of vomiting over the last 3 days. He has continued to void. He has had no fevers or cough. Related Data Home Medications Medication Instructions Recorded Confirmed aspirin 325 mg tablet,delayed 325 mg PO DAILY #0 02/03/12 08/17/18 release Syringes 1 syr MISCELLANEOUS DIRECTED 08/17/18 08/17/18 atorvastatin 40 mg tablet 1 tab PO QPM 08/17/18 08/17/18 glyburide 5 mg tablet 2 tab PO BID 08/17/18 08/17/18 insulin NPH isoph U-100 human 100 36 units SUBCUT BID 08/17/18 08/17/18 unit/mL subcutaneous suspension losartan 100 mg tablet 1 tab PO DAILY 08/17/18 08/17/18 metformin 1,000 mg tablet 1 tab PO BID 08/17/18 08/17/18 metoprolol succinate 25 mg 1 tab PO DAILY 08/17/18 08/17/18 tablet,extended release 24 hr nitroglycerin 0.2 mg/hr 1 patch TOPICAL DAILY 08/17/18 08/17/18 transdermal 24 hour patch omeprazole 20 mg capsule,delayed 1 cap PO DAILY 08/17/18 08/17/18 release Previous Rx's Medication Instructions Recorded nitroglycerin 0.4 mg sublingual 0.4 mg SUBLINGUAL SEE INSTRUCTIONS 04/02/13 tablet (Nitrostat) #2 bot ondansetron 4 mg disintegrating 4 mg PO Q6-8H PRN #14 tab 08/17/18 tablet (Zofran ODT) ondansetron 4 mg disintegrating 4 mg PO Q8H PRN #20 tab 04/15/19 tablet promethazine 25 mg rectal 25 mg SD Q6H PRN #12 each 04/15/19 suppository (Phenergan) ondansetron 4 mg disintegrating 4 mg PO Q6-8H PRN #20 tab 12/26/19 tablet pantoprazole 40 mg tablet,delayed 40 mg PO QAM #30 tab 12/26/19 release (Protonix) ondansetron 4 mg disintegrating 4 mg PO Q8H PRN #10 tab 02/02/21 tablet promethazine 25 mg rectal 25 mg SD Q6H PRN #12 ea 02/02/21 suppository haloperidol 2 mg tablet 2 mg PO DAILY PRN #10 tab 04/25/21 metoclopramide HCl 10 mg tablet 10 mg PO Q6H PRN #20 tab 04/25/21 pantoprazole 40 mg tablet,delayed 40 mg PO DAILY #14 tab 04/25/21 release (Protonix) promethazine 25 mg rectal 25 mg SD Q6H PRN #12 ea 04/25/21 suppository Allergies Allergy/AdvReac Type Severity Reaction Status Date / Time No Known Drug Allergies Allergy Verified 10/02/20 11:58 Review of Systems Review of Systems Narrative: Remainder of complete review of systems is otherwise unremarkable except for that included in the HPI. Patient History Medical History (Updated 04/25/21 @ 14:21 by Dona Arias MD) Cannabinoid hyperemesis syndrome Coronary artery disease Diabetes Gastroesophageal reflux disease Hypertension Surgical History No pertinent past surgical history Social History Smoking Status: Current every day smoker Smoking Status: Current every day smoker alcohol intake frequency: 0-2 drinks per day Substance Use Type: marijuana Exam Narrative Exam Narrative: General: Healthy appearing, in no acute distress. Extraordinarily chatty and Able to give a complete, very detailed and coherent history. Well-nourished well-developed HEENT: Moist mucous membranes, normal sclera with reactive pupils, Neck: No JVD, supple Respiratory: Lungs are clear to auscultation, no wheezing no rales no rhonchi. Full and symmetrical air movement Cardiac: Regular rate and rhythm no murmurs no bruits Abdomen: Soft, nontender, good bowel tones, no flank pain Skin: Warm and dry, no rashes Neurologic: Grossly neurologically intact with no obvious asymmetries or abnormalities Extremities: No trauma, well perfused Psych: Cooperative, appropriate insight and affect Initial Vital Signs Initial Vital Signs: Vital Signs Temperature 97.6 F 04/25/21 10:15 Pulse Rate 118 H 04/25/21 10:15 Respiratory Rate 22 04/25/21 10:15 Blood Pressure 126/78 04/25/21 10:15 Pulse Oximetry 98 04/25/21 10:15 Course Orders Ordered: ED Orders 04/25/21 10:20 EKG-12 Lead Stat 04/25/21 10:21 XR acute abdomen series Stat 04/25/21 11:35 Complete Blood Count AUTO DIFF Stat Comprehensive Metabolic Panel Stat Lipase Stat Troponin & CK Cardiac Panel Stat 04/25/21 12:23 Urine Microscopic Stat Discontinued Medications Sodium Chloride (Normal Saline 0.9%) 1,000 mls @ 1,000 mls/hr IV BOLUS ONE Stop: 04/25/21 11:51 Last Infusion: 04/25/21 12:01 Dose: 0 mls/hr Documented by: Admin: 04/25/21 11:08 Dose: 1,000 mls/hr Documented by: PRAFUL Sodium Chloride (Normal Saline 0.9%) 1,000 mls @ 1,000 mls/hr IV BOLUS ONE Stop: 04/25/21 13:06 Last Infusion: 04/25/21 13:46 Dose: 0 mls/hr Documented by: Admin: 04/25/21 12:34 Dose: 1,000 mls/hr Documented by: SHELLY Metoclopramide HCl (Metoclopramide 10 Mg/2 Ml Inj) 10 mg IV NOW ONE Stop: 04/25/21 11:04 Last Admin: 04/25/21 11:08 Dose: 10 mg Documented by: PRAFUL Ondansetron HCl (Ondansetron 4 Mg Odt) 4 mg PO NOW ONE Stop: 04/25/21 10:22 Last Admin: 04/25/21 11:02 Dose: Not Given Documented by: PRAFUL Ondansetron HCl (Ondansetron 4 Mg/2 Ml Inj) 4 mg IV NOW ONE Stop: 04/25/21 10:53 Last Admin: 04/25/21 11:08 Dose: 4 mg Documented by: PRAFUL Pantoprazole Sodium (Pantoprazole 40 Mg Vial) 40 mg IV NOW ONE Stop: 04/25/21 11:04 Last Admin: 04/25/21 11:08 Dose: 40 mg Documented by: PRAFUL Vital Signs Vital signs: Vital Signs - 8 hr 04/25/21 10:15 04/25/21 12:36 04/25/21 13:21 Temperature 97.6 F Pulse Rate 118 H 99 H 101 H Respiratory Rate 22 14 Blood Pressure 126/78 127/69 136/68 Pulse Oximetry 98 99 92 04/25/21 14:32 Temperature Pulse Rate 90 Respiratory Rate 1 L Blood Pressure Pulse Oximetry 99 MDM - Recheck/Abnormal Lab/Rx Lab Data Result diagrams: 04/25/21 11:35 04/25/21 11:35 Labs: Lab Results 04/25/21 04/25/21 04/25/21 Range/Units 11:35 11:35 12:23 WBC 13.5 H (4.5-11.0) X10^3/uL RBC 5.05 (4.5-5.9) X10^6/uL Hgb 14.8 (13.5-17.5) g/dL Hct 45.0 (41-53) % MCV 89.1 (80-100) fL MCH 29.3 (26-34) PG MCHC 32.9 (30-36) % RDW 13.9 (11.6-14.8) % Plt Count 311 (150-400) X10^3/uL Neut % (Auto) 86.1 H (50-75) % Lymph % (Auto) 8.3 L (25-40) % Reynolds % (Auto) 5.3 (3-14) % Eos % (Auto) 0.0 L (2-4) % Baso % (Auto) 0.3 (0-2) % Neut # (Auto) 60133 H (7279-0290) /uL Lymph # (Auto) 1100 (1620-5276) /uL Reynolds # (Auto) 700 (0-900) /uL Eos # (Auto) 0 (0-450) /uL Baso # (Auto) 0 (0-100) /uL Sodium 135 L (137-145) mmol/L Potassium 4.4 (3.4-5.1) mmol/L Chloride 93 L (98-107) mmol/L Carbon Dioxide 27 (22-32) mmol/L BUN 20 (9-20) mg/dL Creatinine 0.77 (0.66-1.25) mg/dL Estimated GFR > 60.0 (>60) mL/min BUN/Creatinine Ratio 26.0 H (6-22) Glucose 347 H (80-110) mg/dL Calcium 11.0 H (8.4-10.2) mg/dL Total Bilirubin 0.9 (0.2-1.3) mg/dL AST 30 (17-59) IU/L ALT 28 (<50) IU/L Alkaline Phosphatase 54 (38-126) U/L Total Creatine Kinase 147 (55-170) U/L CK-MB (CK-2) 2.60 H (<2.37) ng/mL CK-MB (CK-2) Rel Index 1.8 (1.5-5.0) % Troponin I < 0.012 (0.01-0.034) ng/mL Total Protein 8.3 H (6.3-8.2) g/dL Albumin 5.0 (3.5-5.0) g/dL Globulin 3.3 (1.7-4.1) g/dL Albumin/Globulin Ratio 1.5 (1.0-2.8) Lipase 49 (23-300) U/L Urine RBC None seen (0-5/HPF) Urine WBC 0-1/hpf (0-5/HPF) Urine Bacteria None seen (None) Urine Mucus 1+ H (Negative) Ur Culture Indicated? Cult not indicated Urine Dip Bedside Urine Glucose 1000 mg/dl Bedside Urine Bilirubin - Negative Bedside Urine Ketone +++ 80 Urine Specific Chambers 1.020 Bedside Urine Occult Blood + Bedside Urine pH 6.0 Bedside Urine Protein + 30 Bedside Urine Urobilinogen - Negative Bedside Urine Nitrite - Negative Bedside Urine Leukocytes - Negative Esterase ECG Data Interpretation: Sinus tachycardia 109 But normal intervals, normal axis No acute ischemic changes MDM Narrative Medical decision making narrative: 60-year-old gentleman with diabetes and hyperemesis cannabinoid syndrome using marijuana to continue to deal with anxiety. He states that he has ?sort of? talk to his primary care doctor about his mental health issues. We discussed the importance of completely stopping marijuana and he try to negotiate weekend use at all. I explained to him he can certainly continue to use and when he does he will continue to have episodes of cyclic vomiting such as this. There likely are more effective treatments and this needs to be reviewed with his primary care physician with appropriate referrals to psychiatric care as needed. He is rehydrated. There is no evidence of infection, acute coronary syndrome, renal failure, diabetic ketoacidosis or HHS, he is safe for home discharge. Strongly recommended to follow-up with primary care doctor regarding psychiatric issues so that he can truly stock using marijuana. He is given a prescription for Phenergan suppositories. Have also given him Reglan tablets that may be helpful and if he finds himself falling into a severe vomiting trend again brief course of Haldol to use 2 mg as needed for vomiting. He is safe for home discharge Discharge Plan Departure Patient Disposition: Home Clinical Impression: Cannabinoid hyperemesis syndrome, Diabetic gastroparesis Instructions: DI for Cannabinoid Hyperemesis Syndrome Activity Restrictions/Additional Instructions: I am sorry that you are continuing to have such difficulties with nausea and vomiting. I understand that marijuana helps with some of your mental health issues however, the side effect of the continued canal been weighed hyperemesis syndrome may not be worth the benefit. Please talk to your primary care physician about alternative treatments and medications that may be more effective for you without the side effect. For the nausea and vomiting of the cannabinoid de syndrome, rectal Phenergan should be year 1st choice to help relieve symptoms. If symptoms persist using 2 mg of Haldol for its anti emetic benefits will be more helpful than any other of the anti emetics For nausea related to gastroparesis, Reglan/metoclopramide is typically the most helpful. Using it before meals may prevent nausea in the 1st place. For the increased acid feeling that you have been experiencing with this episode of nausea, I am going to suggest 2 weeks of Protonix in addition to continuing your current from loaded the in period. This will reduce the acid in your stomach and hopefully help with your symptoms Please do schedule with your primary care physician. I hope you feel better Prescriptions: New pantoprazole [Protonix] 40 mg tablet,delayed release (DR/EC) 40 mg PO DAILY Qty: 14 RF: 0 metoclopramide HCl 10 mg tablet 10 mg PO Q6H PRN (Reason: nausea and vomiting) Qty: 20 RF: 0 promethazine 25 mg suppository 25 mg SD Q6H PRN (Reason: nausea and vomiting) Qty: 12 RF: 0 haloperidol 2 mg tablet 2 mg PO DAILY PRN (Reason: nausea and vomiting) Qty: 10 RF: 0 No Action aspirin 325 mg Tablet,Delayed Release (Dr/Ec) 325 mg PO DAILY Qty: 0 RF: 0 nitroglycerin [Nitrostat] 0.4 MG tablet, sublingual 0.4 mg Sublingual SEE INSTRUCTIONS Qty: 2 RF: PRN promethazine [Phenergan] 25 mg suppository 25 mg SD Q6H PRN (Reason: nausea and vomiting) Qty: 12 RF: 0 ondansetron 4 mg tablet,disintegrating 4 mg PO Q8H PRN (Reason: nausea and vomiting) Qty: 20 RF: 0 ondansetron 4 mg tablet,disintegrating 4 mg PO Q8H PRN (Reason: nausea and vomiting) Qty: 10 RF: 0 promethazine 25 mg suppository 25 mg SD Q6H PRN (Reason: nausea and vomiting) Qty: 12 RF: 0 atorvastatin 40 mg tablet 1 tab PO QPM RF: 0 glyburide 5 mg tablet 2 tab PO BID RF: 0 metformin 1,000 mg tablet 1 tab PO BID RF: 0 insulin NPH isoph U-100 human [Humulin N NPH U-100 Insulin] 100 unit/mL suspension 36 units subcut BID RF: 0 omeprazole 20 mg capsule,delayed release(DR/EC) 1 cap PO DAILY RF: 0 metoprolol succinate 25 mg tablet extended release 24 hr 1 tab PO DAILY RF: 0 losartan 100 mg tablet 1 tab PO DAILY RF: 0 nitroglycerin 0.2 mg/hr patch 24 hour 1 patch Topical DAILY RF: 0 Syringes 1 syr miscellaneous DIRECTED RF: 0 ondansetron [Zofran ODT] 4 mg tablet,disintegrating 4 mg PO Q6-8H PRN (Reason: nausea and vomiting) Qty: 14 RF: 0 pantoprazole [Protonix] 40 mg tablet,delayed release (DR/EC) 40 mg PO QAM Qty: 30 RF: 0 ondansetron 4 mg tablet,disintegrating 4 mg PO Q6-8H PRN (Reason: nausea and vomiting) Qty: 20 RF: 0
[2021-04-25 11:53] LABS: Add Manual Diff / Slide Review NO; Basophils Absolute Auto 0 /uL (0-100); Basophils Percent Auto 0.3 % (0-2); Eosinophils Absolute Auto 0 /uL (0-450); Hemoglobin 14.8 g/dL (13.5-17.5); Lymphocytes Absolute Auto 1100 /uL (1100-4500); Lymphocytes Percent Auto 8.3 % (25-40); Mean Corpuscular HGB Conc 32.9 % (30-36); Mean Corpuscular Hemoglobin 29.3 PG (26-34); Mean Corpuscular Volume 89.1 fL (80-100); Monocytes Absolute Auto 700 /uL (0-900); Monocytes Percent Auto 5.3 % (3-14); Neutrophils Absolute Auto 11600 /uL (1500-7000); Neutrophils Percent Auto 86.1 % (50-75); Platelet Count 311 X10^3/uL (150-400); Red Blood Cell Count 5.05 X10^6/uL (4.5-5.9); Red Cell Distribution Width 13.9 % (11.6-14.8); White Blood Cell Count 13.5 X10^3/uL (4.5-11.0)
[2021-04-25 12:02] LABS: Alanine Aminotransferase 28 IU/L (<50); Albumin Globulin Ratio 1.5 (1.0-2.8); Alkaline Phosphatase 54 U/L (38-126); Aspartate Aminotransferase 30 IU/L (17-59); Bilirubin Total 0.9 mg/dL (0.2-1.3); Blood Urea Nitrogen 20 mg/dL (9-20); Carbon Dioxide 27 mmol/L (22-32); Chloride 93 mmol/L (98-107); Creatine Kinase 147 U/L (55-170); Estimated Glomerular Filt Rate > 60.0 mL/min (>60); Globulin 3.3 g/dL (1.7-4.1); Glucose 347 mg/dL (80-110); HEMOLYSIS < 15 (0-50); Lipase 49 U/L (23-300); Potassium 4.4 mmol/L (3.4-5.1); Sodium 135 mmol/L (137-145); Total Protein 8.3 g/dL (6.3-8.2)
[2021-04-25 12:14] LABS: Troponin I < 0.012 ng/mL (0.01-0.034)
[2021-04-25 12:17] LABS: CKMB % Relative Index 1.8 % (1.5-5.0)
[2021-04-25 12:36] VITALS: BP 127/69; PULSE 99; RESP 14; O2SAT 99
[2021-04-25 12:42] LABS: Bacteria Urine None Seen; RBC Urine None Seen (0-5/HPF)
[2021-04-25 13:08] LABS: Culture Indicated Urine Cult Not Indicated; Mucus Urine 1+ (Negative); WBC Urine 0-1/HPF (0-5/HPF)
[2021-04-25 13:21] VITALS: BP 136/68; PULSE 101; O2SAT 92
[2021-04-25 14:32] VITALS: PULSE 90; RESP 1; O2SAT 99
== END 2021-04-25 14:34 | disposition home or self-care (01) ==
PROVIDERS: Emergency Provider Emergency Medicine
DX: E11.43 Type 2 diabetes mellitus with diabetic autonomic (poly)neuropathy (principal); K31.84 Gastroparesis; Z79.4 Long term (current) use of insulin; R11.2 Nausea with vomiting, unspecified; R10.9 Unspecified abdominal pain; R00.0 Tachycardia, unspecified
CPT/HCPCS: 36415; 74022; 80053; 81003; 81015; 82550; 82553; 83690; 84484; 85025; 93005; 96361; 96374; 96375; 99284; C9113; J2405; J2765

== ENCOUNTER 2021-07-10 15:48 | Emergency (ER) | payer OTHER, MEDICAID, SELFPAY ==
[2021-07-10] VITALS (7 sets, daily range): BP systolic 105–168; BP diastolic 58–107; PULSE 90–126; RESP 13–18; TEMP 36.3–36.9; O2SAT 96–100; BMI 35.4
[2021-07-10 17:22] LABS: Add Manual Diff / Slide Review NO; Basophils Absolute Auto 100 /uL (0-100); Basophils Percent Auto 0.5 % (0-2); Eosinophils Absolute Auto 0 /uL (0-450); Hematocrit 46.7 % (41-53); Hemoglobin 15.7 g/dL (13.5-17.5); Lymphocytes Absolute Auto 1500 /uL (1100-4500); Lymphocytes Percent Auto 9.9 % (25-40); Mean Corpuscular HGB Conc 33.7 % (30-36); Mean Corpuscular Hemoglobin 29.8 PG (26-34); Mean Corpuscular Volume 88.5 fL (80-100); Monocytes Absolute Auto 1000 /uL (0-900); Monocytes Percent Auto 6.9 % (3-14); Neutrophils Absolute Auto 12300 /uL (1500-7000); Neutrophils Percent Auto 82.7 % (50-75); Platelet Count 325 X10^3/uL (150-400); Red Blood Cell Count 5.28 X10^6/uL (4.5-5.9); Red Cell Distribution Width 13.7 % (11.6-14.8); White Blood Cell Count 14.9 X10^3/uL (4.5-11.0)
[2021-07-10 17:29] LABS: Alanine Aminotransferase 32 IU/L (<50); Albumin Globulin Ratio 1.4 (1.0-2.8); Alkaline Phosphatase 60 U/L (38-126); Aspartate Aminotransferase 36 IU/L (17-59); Blood Urea Nitrogen 28 mg/dL (9-20); Calcium 9.9 mg/dL (8.4-10.2); Carbon Dioxide 32 mmol/L (22-32); Chloride 88 mmol/L (98-107); Estimated Glomerular Filt Rate > 60.0 mL/min (>60); Globulin 3.5 g/dL (1.7-4.1); Glucose 328 mg/dL (80-110); HEMOLYSIS < 15 (0-50); Sodium 134 mmol/L (137-145); Total Protein 8.5 g/dL (6.3-8.2)
[2021-07-10 17:32] LABS: COVID19 -Nasal RAPID Negative (Negative)
[2021-07-10] MEDS: SODIUM CHLORIDE 0.9% 1,000 ML 1000 ML IV (17:50)
--- NOTE | 2021-07-10 17:59 | ED_ITS ---
HPI - General Adult <Edward Berumen PA-C - Last Filed: 07/10/21 19:45> General Chief complaint: Diabetic Problem Stated complaint: BP and Blood Sugar are High Crisis Mode Time Seen by Provider: 07/10/21 17:04 History of Present Illness HPI narrative: Royce presents today with chief complaint of elevated blood pressure that started about 3 days ago. He reports that he has also had slight elevation in his blood sugar levels from 200-300 occasionally. He also notes that in the morning he is sometimes low in the 60s which he controls with diet. He is able to correct these with his insulin and other diabetic medications as well as diet. He reports that he has been out of his metoprolol since yesterday but has refill at his pharmacy. He has history diabetes, hypertension. He denies any significant headache, confusion, blurred vision, chest pain, upper back pain, increased shortness of breath, diaphoresis or any other acute concerns or complaints at this time. Related Data Home Medications Medication Instructions Recorded Confirmed aspirin 325 mg tablet,delayed 325 mg PO DAILY #0 02/03/12 08/17/18 release Syringes 1 syr MISCELLANEOUS DIRECTED 08/17/18 08/17/18 atorvastatin 40 mg tablet 1 tab PO QPM 08/17/18 08/17/18 glyburide 5 mg tablet 2 tab PO BID 08/17/18 08/17/18 insulin NPH isoph U-100 human 100 36 units SUBCUT BID 08/17/18 08/17/18 unit/mL subcutaneous suspension losartan 100 mg tablet 1 tab PO DAILY 08/17/18 08/17/18 metformin 1,000 mg tablet 1 tab PO BID 08/17/18 08/17/18 metoprolol succinate 25 mg 1 tab PO DAILY 08/17/18 08/17/18 tablet,extended release 24 hr nitroglycerin 0.2 mg/hr 1 patch TOPICAL DAILY 08/17/18 08/17/18 transdermal 24 hour patch omeprazole 20 mg capsule,delayed 1 cap PO DAILY 08/17/18 08/17/18 release Previous Rx's Medication Instructions Recorded nitroglycerin 0.4 mg sublingual 0.4 mg SUBLINGUAL SEE INSTRUCTIONS 04/02/13 tablet (Nitrostat) #2 bot ondansetron 4 mg disintegrating 4 mg PO Q6-8H PRN #14 tab 08/17/18 tablet (Zofran ODT) ondansetron 4 mg disintegrating 4 mg PO Q8H PRN #20 tab 04/15/19 tablet promethazine 25 mg rectal 25 mg CO Q6H PRN #12 each 04/15/19 suppository (Phenergan) ondansetron 4 mg disintegrating 4 mg PO Q6-8H PRN #20 tab 12/26/19 tablet pantoprazole 40 mg tablet,delayed 40 mg PO QAM #30 tab 12/26/19 release (Protonix) ondansetron 4 mg disintegrating 4 mg PO Q8H PRN #10 tab 02/02/21 tablet promethazine 25 mg rectal 25 mg CO Q6H PRN #12 ea 02/02/21 suppository haloperidol 2 mg tablet 2 mg PO DAILY PRN #10 tab 04/25/21 metoclopramide HCl 10 mg tablet 10 mg PO Q6H PRN #20 tab 04/25/21 pantoprazole 40 mg tablet,delayed 40 mg PO DAILY #14 tab 04/25/21 release (Protonix) promethazine 25 mg rectal 25 mg CO Q6H PRN #12 ea 04/25/21 suppository Allergies Allergy/AdvReac Type Severity Reaction Status Date / Time No Known Drug Allergies Allergy Verified 10/02/20 11:58 Review of Systems <Edward Berumen PA-C - Last Filed: 07/10/21 19:45> Review of Systems Narrative: As per HPI Patient History <Edward Berumen PA-C - Last Filed: 07/10/21 19:45> Medical History (Updated 07/10/21 @ 19:03 by Edward Berumen PA-C) Cannabinoid hyperemesis syndrome Coronary artery disease Diabetes Gastroesophageal reflux disease Hypertension Surgical History No pertinent past surgical history Social History Smoking Status: Current every day smoker Smoking Status: Current every day smoker alcohol intake frequency: 0-2 drinks per day Substance Use Type: marijuana Exam <Edward Berumen PA-C - Last Filed: 07/10/21 19:45> Narrative Exam Narrative: Exam Narrative: Const General: cooperative, healthy appearing, comfortable, no acute distress, well developed and well groomed Nutritional Appearance: Elevated BMI Orientation: alert and oriented x3 HENMT Head: normal to inspection and atraumatic Ears: hearing grossly normal bilaterally Nose: external nose normal and nares normal Face and sinus: normal facial exam Neck Neck: normal visual inspection and supple Resp Effort & Inspection: normal respiratory effort, able to speak in complete sentences, no audible wheezes, not labored, no nasal flaring and no respiratory distress, clear to auscultation bilaterally Cardiac Regular rate and rhythm, no nurse normal murmurs, rubs or gallops, no pedal edema or calf tenderness GI Nondistended, nontender to palpation, normal bowel sounds Neuro General: alert, oriented x3, gait normal, tone normal and moves all extremities, cranial nerves 2 through drill grossly intact, normal coordination Cognition: normal cognition Speech: speech normal Gait: normal gait Psych Appearance: grossly normal and well kempt Mental Status: mental status grossly normal Speech and Movement: speech and movement normal Mood: congruent mood Affect: normal affect Initial Vital Signs Initial Vital Signs: Vital Signs Temperature 97.3 F L 07/10/21 16:29 Pulse Rate 126 H 07/10/21 16:29 Respiratory Rate 16 07/10/21 16:29 Blood Pressure 105/73 07/10/21 16:29 Pulse Oximetry 97 07/10/21 16:29 <Myriam Weber DO - Last Filed: 07/12/21 15:45> Initial Vital Signs Initial Vital Signs: Vital Signs Temperature 97.3 F L 07/10/21 16:29 Pulse Rate 126 H 07/10/21 16:29 Respiratory Rate 16 07/10/21 16:29 Blood Pressure 105/73 07/10/21 16:29 Pulse Oximetry 97 07/10/21 16:29 Course <Edward Berumen PA-C - Last Filed: 07/10/21 19:45> Orders Ordered: Discontinued Medications Sodium Chloride (Normal Saline 0.9%) 1,000 mls @ 1,000 mls/hr IV BOLUS ONE Stop: 07/10/21 18:41 Last Infusion: 07/10/21 18:46 Dose: 0 mls/hr Documented by: Admin: 07/10/21 17:50 Dose: 1,000 mls/hr Documented by: TIKA Vital Signs Vital signs: Vital Signs - 8 hr 07/10/21 16:29 07/10/21 17:14 07/10/21 17:15 Temperature 97.3 F L 98.4 F Pulse Rate 126 H 98 H 98 H Respiratory Rate 16 18 15 Blood Pressure 105/73 167/107 H Pulse Oximetry 97 97 97 07/10/21 17:22 07/10/21 17:30 07/10/21 18:00 Temperature Pulse Rate 97 H 97 H 90 Respiratory Rate 15 13 14 Blood Pressure 166/97 H 168/102 H 159/98 H Pulse Oximetry 97 96 96 07/10/21 18:53 Temperature Pulse Rate 100 H Respiratory Rate 18 Blood Pressure 111/58 L Pulse Oximetry 100 <Myriam Weber DO - Last Filed: 07/12/21 15:45> Orders Ordered: Discontinued Medications Sodium Chloride (Normal Saline 0.9%) 1,000 mls @ 1,000 mls/hr IV BOLUS ONE Stop: 07/10/21 18:41 Last Infusion: 07/10/21 18:46 Dose: 0 mls/hr Documented by: Admin: 07/10/21 17:50 Dose: 1,000 mls/hr Documented by: TIKA Vital Signs Vital signs: Vital Signs - 8 hr 07/10/21 16:29 07/10/21 17:14 07/10/21 17:15 Temperature 97.3 F L 98.4 F Pulse Rate 126 H 98 H 98 H Respiratory Rate 16 18 15 Blood Pressure 105/73 167/107 H Pulse Oximetry 97 97 97 07/10/21 17:22 07/10/21 17:30 07/10/21 18:00 Temperature Pulse Rate 97 H 97 H 90 Respiratory Rate 15 13 14 Blood Pressure 166/97 H 168/102 H 159/98 H Pulse Oximetry 97 96 96 07/10/21 18:53 Temperature Pulse Rate 100 H Respiratory Rate 18 Blood Pressure 111/58 L Pulse Oximetry 100 Medical Decision Making <Edward Berumen PA-C - Last Filed: 07/10/21 19:45> Lab Data Result diagrams: 07/10/21 16:40 07/10/21 16:40 Labs: Lab Results 07/10/21 07/10/21 07/10/21 Range/Units 16:40 16:40 17:07 WBC 14.9 H (4.5-11.0) X10^3/uL RBC 5.28 (4.5-5.9) X10^6/uL Hgb 15.7 (13.5-17.5) g/dL Hct 46.7 (41-53) % MCV 88.5 (80-100) fL MCH 29.8 (26-34) PG MCHC 33.7 (30-36) % RDW 13.7 (11.6-14.8) % Plt Count 325 (150-400) X10^3/uL Neut % (Auto) 82.7 H (50-75) % Lymph % (Auto) 9.9 L (25-40) % [place] % (Auto) 6.9 (3-14) % Eos % (Auto) 0.0 L (2-4) % Baso % (Auto) 0.5 (0-2) % Neut # (Auto) 41677 H (0593-4080) /uL Lymph # (Auto) 1500 (8089-9204) /uL [place] # (Auto) 1000 H (0-900) /uL Eos # (Auto) 0 (0-450) /uL Baso # (Auto) 100 (0-100) /uL Sodium 134 L (137-145) mmol/L Potassium 4.0 (3.4-5.1) mmol/L Chloride 88 L (98-107) mmol/L Carbon Dioxide 32 (22-32) mmol/L BUN 28 H (9-20) mg/dL Creatinine 1.00 (0.66-1.25) mg/dL Estimated GFR > 60.0 (>60) mL/min BUN/Creatinine Ratio 28.0 H (6-22) Glucose 328 H (80-110) mg/dL Calcium 9.9 (8.4-10.2) mg/dL Total Bilirubin 1.0 (0.2-1.3) mg/dL AST 36 (17-59) IU/L ALT 32 (<50) IU/L Alkaline Phosphatase 60 (38-126) U/L Total Protein 8.5 H (6.3-8.2) g/dL Albumin 5.0 (3.5-5.0) g/dL Globulin 3.5 (1.7-4.1) g/dL Albumin/Globulin Ratio 1.4 (1.0-2.8) SARS-CoV-2 (PCR) Negative (Negative) Point of Care Testing Glucose POC 341 Urine Dip Bedside Urine Glucose 1000 mg/dl Bedside Urine Bilirubin - Negative Bedside Urine Ketone + 15 Urine Specific [place] 1.030 Bedside Urine Occult Blood +/- Bedside Urine pH 6.0 Bedside Urine Protein + 30 Bedside Urine Urobilinogen 0.2 Bedside Urine Nitrite - Negative Bedside Urine Leukocytes - Negative Esterase Point of care testing: Point of Care Testing Glucose POC 341 Urine Dip Bedside Urine Glucose 1000 mg/dl Bedside Urine Bilirubin - Negative Bedside Urine Ketone + 15 Urine Specific [place] 1.030 Bedside Urine Occult Blood +/- Bedside Urine pH 6.0 Bedside Urine Protein + 30 Bedside Urine Urobilinogen 0.2 Bedside Urine Nitrite - Negative Bedside Urine Leukocytes - Negative Esterase MDM Narrative Medical decision making narrative: Patient is well-appearing at this time. Blood pressure has improved. He denies any abdominal pain, nausea, vomiting, headache, chest pain, shortness of breath and has a normal physical examination. He had a slight elevation in his white blood cells but there are no other systemic signs of illness at this time. He has slight tachycardia but he reports that this is normal for him. He has also not taken his metoprolol today which he is supposed to take to help control his blood pressure. He is afebrile. His blood sugar was elevated at over 300 upon arrival but he reports that he has not taken his afternoon insulin and just had a large meal. I considered DKA but think that this is less likely at this time. We will do outpatient management at this time with strict ER return precautions extensively discussed with the patient. Patient verbalizes understanding and agrees to plan and has no further concerns at this time. Thank you A [id number] system was used with the dictation of this note. Please disregard any spelling or grammatical errors. <Myriam Weber, DO - Last Filed: 07/12/21 15:45> Lab Data Labs: Lab Results 07/10/21 07/10/21 07/10/21 Range/Units 16:40 16:40 17:07 WBC 14.9 H (4.5-11.0) X10^3/uL RBC 5.28 (4.5-5.9) X10^6/uL Hgb 15.7 (13.5-17.5) g/dL Hct 46.7 (41-53) % MCV 88.5 (80-100) fL MCH 29.8 (26-34) PG MCHC 33.7 (30-36) % RDW 13.7 (11.6-14.8) % Plt Count 325 (150-400) X10^3/uL Neut % (Auto) 82.7 H (50-75) % Lymph % (Auto) 9.9 L (25-40) % [place] % (Auto) 6.9 (3-14) % Eos % (Auto) 0.0 L (2-4) % Baso % (Auto) 0.5 (0-2) % Neut # (Auto) 41488 H (5369-6401) /uL Lymph # (Auto) 1500 (5377-5419) /uL [place] # (Auto) 1000 H (0-900) /uL Eos # (Auto) 0 (0-450) /uL Baso # (Auto) 100 (0-100) /uL Sodium 134 L (137-145) mmol/L Potassium 4.0 (3.4-5.1) mmol/L Chloride 88 L (98-107) mmol/L Carbon Dioxide 32 (22-32) mmol/L BUN 28 H (9-20) mg/dL Creatinine 1.00 (0.66-1.25) mg/dL Estimated GFR > 60.0 (>60) mL/min BUN/Creatinine Ratio 28.0 H (6-22) Glucose 328 H (80-110) mg/dL Calcium 9.9 (8.4-10.2) mg/dL Total Bilirubin 1.0 (0.2-1.3) mg/dL AST 36 (17-59) IU/L ALT 32 (<50) IU/L Alkaline Phosphatase 60 (38-126) U/L Total Protein 8.5 H (6.3-8.2) g/dL Albumin 5.0 (3.5-5.0) g/dL Globulin 3.5 (1.7-4.1) g/dL Albumin/Globulin Ratio 1.4 (1.0-2.8) SARS-CoV-2 (PCR) Negative (Negative) Point of Care Testing Glucose POC 341 Urine Dip Bedside Urine Glucose 1000 mg/dl Bedside Urine Bilirubin - Negative Bedside Urine Ketone + 15 Urine Specific [place] 1.030 Bedside Urine Occult Blood +/- Bedside Urine pH 6.0 Bedside Urine Protein + 30 Bedside Urine Urobilinogen 0.2 Bedside Urine Nitrite - Negative Bedside Urine Leukocytes - Negative Esterase Point of care testing: Point of Care Testing Glucose POC 341 Urine Dip Bedside Urine Glucose 1000 mg/dl Bedside Urine Bilirubin - Negative Bedside Urine Ketone + 15 Urine Specific [place] 1.030 Bedside Urine Occult Blood +/- Bedside Urine pH 6.0 Bedside Urine Protein + 30 Bedside Urine Urobilinogen 0.2 Bedside Urine Nitrite - Negative Bedside Urine Leukocytes - Negative Esterase Discharge Plan Departure Patient Disposition: Home Clinical Impression: Chronic hypertension Type 2 diabetes mellitus with hyperglycemia Qualifiers: Diabetes mellitus correction insulin use: with correction use Qualified Code(s): E11.65 - Type 2 diabetes mellitus with hyperglycemia Instructions: Essential Hypertension Activity Restrictions/Additional Instructions: It was very nice to meet you this evening. Please fill your metoprolol and start taking this for your blood pressure in addition to your other medications. Recommend taking all of your prescription medications. Sometimes, during an initial period of medication adjustments your numbers can be thrown off. Please continue to monitor due to these. If You experience continued abnormal blood sugars or significantly elevated blood pressures feel free to return for re- evaluation. However, we are more interested in your symptoms then the specific numbers for your blood pressure. If you develop significant headache, chest pain, upper back pain, difficulty breathing or any other new or worsening complaints please return immediately for re-evaluation. Thank you Edward Berumen PA-C Prescriptions: No Action aspirin 325 mg Tablet,Delayed Release (Dr/Ec) 325 mg PO DAILY Qty: 0 RF: 0 nitroglycerin [Nitrostat] 0.4 MG tablet, sublingual 0.4 mg Sublingual SEE INSTRUCTIONS Qty: 2 RF: PRN promethazine [Phenergan] 25 mg suppository 25 mg CO Q6H PRN (Reason: nausea and vomiting) Qty: 12 RF: 0 ondansetron 4 mg tablet,disintegrating 4 mg PO Q8H PRN (Reason: nausea and vomiting) Qty: 20 RF: 0 ondansetron 4 mg tablet,disintegrating 4 mg PO Q8H PRN (Reason: nausea and vomiting) Qty: 10 RF: 0 promethazine 25 mg suppository 25 mg CO Q6H PRN (Reason: nausea and vomiting) Qty: 12 RF: 0 pantoprazole [Protonix] 40 mg tablet,delayed release (DR/EC) 40 mg PO DAILY Qty: 14 RF: 0 metoclopramide HCl 10 mg tablet 10 mg PO Q6H PRN (Reason: nausea and vomiting) Qty: 20 RF: 0 promethazine 25 mg suppository 25 mg CO Q6H PRN (Reason: nausea and vomiting) Qty: 12 RF: 0 haloperidol 2 mg tablet 2 mg PO DAILY PRN (Reason: nausea and vomiting) Qty: 10 RF: 0 atorvastatin 40 mg tablet 1 tab PO QPM RF: 0 glyburide 5 mg tablet 2 tab PO BID RF: 0 metformin 1,000 mg tablet 1 tab PO BID RF: 0 insulin NPH isoph U-100 human [Humulin N NPH U-100 Insulin] 100 unit/mL suspension 36 units subcut BID RF: 0 omeprazole 20 mg capsule,delayed release(DR/EC) 1 cap PO DAILY RF: 0 metoprolol succinate 25 mg tablet extended release 24 hr 1 tab PO DAILY RF: 0 losartan 100 mg tablet 1 tab PO DAILY RF: 0 nitroglycerin 0.2 mg/hr patch 24 hour 1 patch Topical DAILY RF: 0 Syringes 1 syr miscellaneous DIRECTED RF: 0 ondansetron [Zofran ODT] 4 mg tablet,disintegrating 4 mg PO Q6-8H PRN (Reason: nausea and vomiting) Qty: 14 RF: 0 pantoprazole [Protonix] 40 mg tablet,delayed release (DR/EC) 40 mg PO QAM Qty: 30 RF: 0 ondansetron 4 mg tablet,disintegrating 4 mg PO Q6-8H PRN (Reason: nausea and vomiting) Qty: 20 RF: 0 <Myriam Weber, DO - Last Filed: 07/12/21 15:45> [facility] [place] Attestation: I was immediately available in the department for consultation. Documentation has been reviewed.
== END 2021-07-10 19:16 | disposition home or self-care (01) ==
PROVIDERS: Emergency Medicine; Emergency Provider Physician Assistant
DX: I10 Essential (primary) hypertension (principal); E11.65 Type 2 diabetes mellitus with hyperglycemia; Z20.822 Contact with and (suspected) exposure to COVID-19
CPT/HCPCS: 36415; 80053; 81003; 82962; 85025; 87635; 96360; 99284; C9803

== ENCOUNTER 2021-09-10 14:28 | Emergency (ER) | payer OTHER, MEDICAID, SELFPAY ==
[2021-09-10] VITALS (24 sets, daily range): BP systolic 124–231; BP diastolic 61–117; PULSE 103–126; RESP 16–24; TEMP 36.6; O2SAT 88–98; BMI 35.4
[2021-09-10 15:56] LABS: Add Manual Diff / Slide Review NO; Basophils Absolute Auto 100 /uL (0-100); Basophils Percent Auto 0.4 % (0-2); Eosinophils Absolute Auto 0 /uL (0-450); Eosinophils Percent Auto 0.1 % (2-4); Hematocrit 47.2 % (41-53); Hemoglobin 15.7 g/dL (13.5-17.5); Lymphocytes Absolute Auto 1000 /uL (1100-4500); Mean Corpuscular HGB Conc 33.3 % (30-36); Mean Corpuscular Hemoglobin 29.5 PG (26-34); Mean Corpuscular Volume 88.6 fL (80-100); Monocytes Absolute Auto 400 /uL (0-900); Monocytes Percent Auto 2.2 % (3-14); Neutrophils Absolute Auto 15100 /uL (1500-7000); Neutrophils Percent Auto 91.3 % (50-75); Platelet Count 285 X10^3/uL (150-400); Red Blood Cell Count 5.32 X10^6/uL (4.5-5.9); Red Cell Distribution Width 13.7 % (11.6-14.8); White Blood Cell Count 16.6 X10^3/uL (4.5-11.0)
[2021-09-10] MEDS: ONDANSETRON 4 MG/2 ML INJ IV (16:01)
[2021-09-10] MEDS: SODIUM CHLORIDE 0.9% 1,000 ML 1000 ML IV ×3 (16:02→19:44)
[2021-09-10 16:17] LABS: Albumin 5.4 g/dL (3.5-5.0); Albumin Globulin Ratio 1.7 (1.0-2.8); Alkaline Phosphatase 70 U/L (38-126); Aspartate Aminotransferase 39 IU/L (17-59); BUN Creatinine Ratio 21.3 (6-22); Bilirubin Total 0.9 mg/dL (0.2-1.3); Blood Urea Nitrogen 19 mg/dL (9-20); Calcium 10.2 mg/dL (8.4-10.2); Carbon Dioxide 18 mmol/L (22-32); Chloride 95 mmol/L (98-107); Estimated Glomerular Filt Rate > 60.0 mL/min (>60); Globulin 3.2 g/dL (1.7-4.1); Glucose 444 mg/dL (80-110); HEMOLYSIS < 15 (0-50); Lipase 168 U/L (23-300); Potassium 4.4 mmol/L (3.4-5.1); Sodium 138 mmol/L (137-145); Total Protein 8.6 g/dL (6.3-8.2)
[2021-09-10 16:23] LABS: Alanine Aminotransferase 41 IU/L (<50)
[2021-09-10 16:32] LABS: Bacteria Urine None Seen; Culture Indicated Urine Cult Not Indicated; RBC Urine 0-1/HPF (0-5/HPF); WBC Urine None Seen (0-5/HPF)
--- NOTE | 2021-09-10 16:56 | PC.NURSE ---
Pt has a hx of cyclical vomiting. States since his power has been out for 2 days his schedule has been messed up which effected his medication schedule which he believes why he started vomiting. Attempted rectal and SL anti nausea meds with no improvement.
[2021-09-10] MEDS: LORazepam 2 MG/ML INJ 1 MG IV (17:26)
[2021-09-10] MEDS: PANTOPRAZOLE 40 MG VIAL IV (17:26)
--- NOTE | 2021-09-10 18:25 | ED.NAVMDI ---
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 elevated ST segment in AVR. This was immediately sent to on-call Cardiology and we reviewed the patient's case. His story is certainly not classically cardiac in nature, he has no chest pain or shortness of breath. His initial troponin was unremarkable, D-dimer negative. We agree that particularly given his history of upper GI bleed that it was reasonable to hold off on heparin for now, repeat troponin and EKGs and act accordingly. His repeat troponin had risen a bit and EKG remained normal. Not until his 3rd troponin was obtained did he enter into positive territory. Patient is resting comfortably and denies any chest pain or shortness of breath. He is not dizzy nor weak or lightheaded. 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 I have discussed with hospitalist and Cardiology there and we all sure the opinion the patient is appropriate and stable for transfer and requires a higher level of care than we can provide at our facility. Patient understands and is in complete agreement with the plan. <Nick Woodruff, DO - Last Filed: 09/11/21 04:28> Lab Data Labs: Lab Results 09/10/21 09/10/21 09/10/21 Range/Units 15:40 15:40 15:45 WBC 16.6 H (4.5-11.0) X10^3/uL RBC 5.32 (4.5-5.9) X10^6/uL Hgb 15.7 (13.5-17.5) g/dL Hct 47.2 (41-53) % MCV 88.6 (80-100) fL MCH 29.5 (26-34) PG MCHC 33.3 (30-36) % RDW 13.7 (11.6-14.8) % Plt Count 285 (150-400) X10^3/uL Neut % (Auto) 91.3 H (50-75) % Lymph % (Auto) 6.0 L (25-40) % [place] % (Auto) 2.2 L (3-14) % Eos % (Auto) 0.1 L (2-4) % Baso % (Auto) 0.4 (0-2) % Neut # (Auto) 53523 H (7953-2248) /uL Lymph # (Auto) 1000 L (2934-8819) /uL [place] # (Auto) 400 (0-900) /uL Eos # (Auto) 0 (0-450) /uL Baso # (Auto) 100 (0-100) /uL APTT (26.4-36.2) SECONDS D-Dimer (<230) ng/mL VBG pH (7.33-7.43) VBG pCO2 (45-50) mmHg VBG pO2 (35-45) mmHg VBG HCO3 (23-28) mmol/L VBG Total CO2 (24-29) mmol/L VBG O2 Saturation (70-75) % VBG Base Excess (0-4) mmol/L Sodium (137-145) mmol/L Potassium (3.4-5.1) mmol/L Chloride (98-107) mmol/L Carbon Dioxide (22-32) mmol/L BUN (9-20) mg/dL Creatinine (0.66-1.25) mg/dL Estimated GFR (>60) mL/min BUN/Creatinine Ratio (6-22) Glucose (80-110) mg/dL Hemoglobin A1c (4.0-6.0) % Lactate 4.9 H* (0.7-2.1) mmol/L Calcium (8.4-10.2) mg/dL Total Bilirubin (0.2-1.3) mg/dL AST (17-59) IU/L ALT (<50) IU/L Alkaline Phosphatase (38-126) U/L Total Creatine Kinase (55-170) U/L CK-MB (CK-2) (<2.37) ng/mL CK-MB (CK-2) Rel Index (1.5-5.0) % Troponin I (0.01-0.034) ng/mL Total Protein (6.3-8.2) g/dL Albumin (3.5-5.0) g/dL Globulin (1.7-4.1) g/dL Albumin/Globulin Ratio (1.0-2.8) Lipase (23-300) U/L Urine RBC (0-5/HPF) Urine WBC (0-5/HPF) Urine Bacteria (None) Ur Culture Indicated? Ketones 3.99 H (<0.27) mmol/L SARS-CoV-2 (PCR) (Negative) 09/10/21 09/10/21 09/10/21 Range/Units 15:45 15:45 15:45 WBC (4.5-11.0) X10^3/uL RBC (4.5-5.9) X10^6/uL Hgb (13.5-17.5) g/dL Hct (41-53) % MCV (80-100) fL MCH (26-34) PG MCHC (30-36) % RDW (11.6-14.8) % Plt Count (150-400) X10^3/uL Neut % (Auto) (50-75) % Lymph % (Auto) (25-40) % [place] % (Auto) (3-14) % Eos % (Auto) (2-4) % Baso % (Auto) (0-2) % Neut # (Auto) (4033-9186) /uL Lymph # (Auto) (1030-4939) /uL [place] # (Auto) (0-900) /uL Eos # (Auto) (0-450) /uL Baso # (Auto) (0-100) /uL APTT (26.4-36.2) SECONDS D-Dimer (<230) ng/mL VBG pH (7.33-7.43) VBG pCO2 (45-50) mmHg VBG pO2 (35-45) mmHg VBG HCO3 (23-28) mmol/L VBG Total CO2 (24-29) mmol/L VBG O2 Saturation (70-75) % VBG Base Excess (0-4) mmol/L Sodium 138 (137-145) mmol/L Potassium 4.4 (3.4-5.1) mmol/L Chloride 95 L (98-107) mmol/L Carbon Dioxide 18 L (22-32) mmol/L BUN 19 (9-20) mg/dL Creatinine 0.89 (0.66-1.25) mg/dL Estimated GFR > 60.0 (>60) mL/min BUN/Creatinine Ratio 21.3 (6-22) Glucose 444 H (80-110) mg/dL Hemoglobin A1c 9.0 H (4.0-6.0) % Lactate (0.7-2.1) mmol/L Calcium 10.2 (8.4-10.2) mg/dL Total Bilirubin 0.9 (0.2-1.3) mg/dL AST 39 (17-59) IU/L ALT 41 (<50) IU/L Alkaline Phosphatase 70 (38-126) U/L Total Creatine Kinase (55-170) U/L CK-MB (CK-2) (<2.37) ng/mL CK-MB (CK-2) Rel Index (1.5-5.0) % Troponin I < 0.012 (0.01-0.034) ng/mL Total Protein 8.6 H (6.3-8.2) g/dL Albumin 5.4 H (3.5-5.0) g/dL Globulin 3.2 (1.7-4.1) g/dL Albumin/Globulin Ratio 1.7 (1.0-2.8) Lipase 168 (23-300) U/L Urine RBC (0-5/HPF) Urine WBC (0-5/HPF) Urine Bacteria (None) Ur Culture Indicated? Ketones (<0.27) mmol/L SARS-CoV-2 (PCR) (Negative) 09/10/21 09/10/21 09/10/21 Range/Units 15:45 15:55 20:14 WBC (4.5-11.0) X10^3/uL RBC (4.5-5.9) X10^6/uL Hgb (13.5-17.5) g/dL Hct (41-53) % MCV (80-100) fL MCH (26-34) PG MCHC (30-36) % RDW (11.6-14.8) % Plt Count (150-400) X10^3/uL Neut % (Auto) (50-75) % Lymph % (Auto) (25-40) % [place] % (Auto) (3-14) % Eos % (Auto) (2-4) % Baso % (Auto) (0-2) % Neut # (Auto) (6235-0408) /uL Lymph # (Auto) (2854-4550) /uL [place] # (Auto) (0-900) /uL Eos # (Auto) (0-450) /uL Baso # (Auto) (0-100) /uL APTT (26.4-36.2) SECONDS D-Dimer < 200 (<230) ng/mL VBG pH (7.33-7.43) VBG pCO2 (45-50) mmHg VBG pO2 (35-45) mmHg VBG HCO3 (23-28) mmol/L VBG Total CO2 (24-29) mmol/L VBG O2 Saturation (70-75) % VBG Base Excess (0-4) mmol/L Sodium 139 (137-145) mmol/L Potassium 4.7 (3.4-5.1) mmol/L Chloride 102 (98-107) mmol/L Carbon Dioxide 19 L (22-32) mmol/L BUN 17 (9-20) mg/dL Creatinine 0.76 (0.66-1.25) mg/dL Estimated GFR > 60.0 (>60) mL/min BUN/Creatinine Ratio 22.4 H (6-22) Glucose 325 H D (80-110) mg/dL Hemoglobin A1c (4.0-6.0) % Lactate (0.7-2.1) mmol/L Calcium 9.1 (8.4-10.2) mg/dL Total Bilirubin (0.2-1.3) mg/dL AST (17-59) IU/L ALT (<50) IU/L Alkaline Phosphatase (38-126) U/L Total Creatine Kinase (55-170) U/L CK-MB (CK-2) (<2.37) ng/mL CK-MB (CK-2) Rel Index (1.5-5.0) % Troponin I (0.01-0.034) ng/mL Total Protein (6.3-8.2) g/dL Albumin (3.5-5.0) g/dL Globulin (1.7-4.1) g/dL Albumin/Globulin Ratio (1.0-2.8) Lipase (23-300) U/L Urine RBC 0-1/hpf (0-5/HPF) Urine WBC None seen (0-5/HPF) Urine Bacteria None seen (None) Ur Culture Indicated? Cult not indicated Ketones (<0.27) mmol/L SARS-CoV-2 (PCR) (Negative) 09/10/21 09/10/21 09/10/21 Range/Units 20:14 20:14 20:20 WBC (4.5-11.0) X10^3/uL RBC (4.5-5.9) X10^6/uL Hgb (13.5-17.5) g/dL Hct (41-53) % MCV (80-100) fL MCH (26-34) PG MCHC (30-36) % RDW (11.6-14.8) % Plt Count (150-400) X10^3/uL Neut % (Auto) (50-75) % Lymph % (Auto) (25-40) % [place] % (Auto) (3-14) % Eos % (Auto) (2-4) % Baso % (Auto) (0-2) % Neut # (Auto) (4250-6648) /uL Lymph # (Auto) (8761-3308) /uL [place] # (Auto) (0-900) /uL Eos # (Auto) (0-450) /uL Baso # (Auto) (0-100) /uL APTT (26.4-36.2) SECONDS D-Dimer (<230) ng/mL VBG pH 7.42 (7.33-7.43) VBG pCO2 32.0 L (45-50) mmHg VBG pO2 59 H (35-45) mmHg VBG HCO3 21 L (23-28) mmol/L VBG Total CO2 22 L (24-29) mmol/L VBG O2 Saturation 91 H (70-75) % VBG Base Excess -4.0 L (0-4) mmol/L Sodium (137-145) mmol/L Potassium (3.4-5.1) mmol/L Chloride (98-107) mmol/L Carbon Dioxide (22-32) mmol/L BUN (9-20) mg/dL Creatinine (0.66-1.25) mg/dL Estimated GFR (>60) mL/min BUN/Creatinine Ratio (6-22) Glucose (80-110) mg/dL Hemoglobin A1c (4.0-6.0) % Lactate 2.5 H (0.7-2.1) mmol/L Calcium (8.4-10.2) mg/dL Total Bilirubin (0.2-1.3) mg/dL AST (17-59) IU/L ALT (<50) IU/L Alkaline Phosphatase (38-126) U/L Total Creatine Kinase 178 H (55-170) U/L CK-MB (CK-2) 2.88 H (<2.37) ng/mL CK-MB (CK-2) Rel Index 1.6 (1.5-5.0) % Troponin I 0.036 H (0.01-0.034) ng/mL Total Protein (6.3-8.2) g/dL Albumin (3.5-5.0) g/dL Globulin (1.7-4.1) g/dL Albumin/Globulin Ratio (1.0-2.8) Lipase (23-300) U/L Urine RBC (0-5/HPF) Urine WBC (0-5/HPF) Urine Bacteria (None) Ur Culture Indicated? Ketones (<0.27) mmol/L SARS-CoV-2 (PCR) (Negative) 09/10/21 09/10/21 09/10/21 Range/Units 21:35 23:40 23:40 WBC (4.5-11.0) X10^3/uL RBC (4.5-5.9) X10^6/uL Hgb (13.5-17.5) g/dL Hct (41-53) % MCV (80-100) fL MCH (26-34) PG MCHC (30-36) % RDW (11.6-14.8) % Plt Count (150-400) X10^3/uL Neut % (Auto) (50-75) % Lymph % (Auto) (25-40) % [place] % (Auto) (3-14) % Eos % (Auto) (2-4) % Baso % (Auto) (0-2) % Neut # (Auto) (2736-1929) /uL Lymph # (Auto) (5428-9843) /uL [place] # (Auto) (0-900) /uL Eos # (Auto) (0-450) /uL Baso # (Auto) (0-100) /uL APTT (26.4-36.2) SECONDS D-Dimer (<230) ng/mL VBG pH (7.33-7.43) VBG pCO2 (45-50) mmHg VBG pO2 (35-45) mmHg VBG HCO3 (23-28) mmol/L VBG Total CO2 (24-29) mmol/L VBG O2 Saturation (70-75) % VBG Base Excess (0-4) mmol/L Sodium 139 (137-145) mmol/L Potassium 4.6 (3.4-5.1) mmol/L Chloride 103 (98-107) mmol/L Carbon Dioxide 26 (22-32) mmol/L BUN 16 (9-20) mg/dL Creatinine 0.73 (0.66-1.25) mg/dL Estimated GFR > 60.0 (>60) mL/min BUN/Creatinine Ratio 21.9 (6-22) Glucose 288 H (80-110) mg/dL Hemoglobin A1c (4.0-6.0) % Lactate 1.2 (0.7-2.1) mmol/L Calcium 8.9 (8.4-10.2) mg/dL Total Bilirubin 0.6 (0.2-1.3) mg/dL AST 29 (17-59) IU/L ALT 28 (<50) IU/L Alkaline Phosphatase 40 (38-126) U/L Total Creatine Kinase (55-170) U/L CK-MB (CK-2) (<2.37) ng/mL CK-MB (CK-2) Rel Index (1.5-5.0) % Troponin I 0.273 H* (0.01-0.034) ng/mL Total Protein 7.1 (6.3-8.2) g/dL Albumin 4.4 (3.5-5.0) g/dL Globulin 2.7 (1.7-4.1) g/dL Albumin/Globulin Ratio 1.6 (1.0-2.8) Lipase (23-300) U/L Urine RBC (0-5/HPF) Urine WBC (0-5/HPF) Urine Bacteria (None) Ur Culture Indicated? Ketones (<0.27) mmol/L SARS-CoV-2 (PCR) Negative (Negative) 09/11/21 Range/Units 01:30 WBC (4.5-11.0) X10^3/uL RBC (4.5-5.9) X10^6/uL Hgb (13.5-17.5) g/dL Hct (41-53) % MCV (80-100) fL MCH (26-34) PG MCHC (30-36) % RDW (11.6-14.8) % Plt Count (150-400) X10^3/uL Neut % (Auto) (50-75) % Lymph % (Auto) (25-40) % [place] % (Auto) (3-14) % Eos % (Auto) (2-4) % Baso % (Auto) (0-2) % Neut # (Auto) (8539-3915) /uL Lymph # (Auto) (8475-7028) /uL [place] # (Auto) (0-900) /uL Eos # (Auto) (0-450) /uL Baso # (Auto) (0-100) /uL APTT 30 (26.4-36.2) SECONDS D-Dimer (<230) ng/mL VBG pH (7.33-7.43) VBG pCO2 (45-50) mmHg VBG pO2 (35-45) mmHg VBG HCO3 (23-28) mmol/L VBG Total CO2 (24-29) mmol/L VBG O2 Saturation (70-75) % VBG Base Excess (0-4) mmol/L Sodium (137-145) mmol/L Potassium (3.4-5.1) mmol/L Chloride (98-107) mmol/L Carbon Dioxide (22-32) mmol/L BUN (9-20) mg/dL Creatinine (0.66-1.25) mg/dL Estimated GFR (>60) mL/min BUN/Creatinine Ratio (6-22) Glucose (80-110) mg/dL Hemoglobin A1c (4.0-6.0) % Lactate (0.7-2.1) mmol/L Calcium (8.4-10.2) mg/dL Total Bilirubin (0.2-1.3) mg/dL AST (17-59) IU/L ALT (<50) IU/L Alkaline Phosphatase (38-126) U/L Total Creatine Kinase (55-170) U/L CK-MB (CK-2) (<2.37) ng/mL CK-MB (CK-2) Rel Index (1.5-5.0) % Troponin I (0.01-0.034) ng/mL Total Protein (6.3-8.2) g/dL Albumin (3.5-5.0) g/dL Globulin (1.7-4.1) g/dL Albumin/Globulin Ratio (1.0-2.8) Lipase (23-300) U/L Urine RBC (0-5/HPF) Urine WBC (0-5/HPF) Urine Bacteria (None) Ur Culture Indicated? Ketones (<0.27) mmol/L SARS-CoV-2 (PCR) (Negative) Urine Dip Bedside Urine Glucose 1000 mg/dl Bedside Urine Bilirubin - Negative Bedside Urine Ketone +++ 80 Urine Specific [place] 1.025 Bedside Urine Occult Blood + Bedside Urine pH 5.0 Bedside Urine Protein +/- 15 Bedside Urine Urobilinogen - Negative Bedside Urine Nitrite - Negative Bedside Urine Leukocytes - Negative Esterase Imaging Data Chest x-ray: Radiologist's Impression: Launch?[address] [address] XRay Report Signed Patient: Royce Roman MR#: [id number] : 1960 Acct:[id number] Age/Sex: 61 / M Date of Service: 09/11/21 Loc: ED Accession Number: [id number] ?? Procedure: XR chest 1V Ordering Provider: Nick Woodruff D.O. PROCEDURE:? XR CHEST 1V ? INDICATIONS:? chest pain ? TECHNIQUE:? One view of the chest was acquired.? ? COMPARISON:? [facility], CR, XR CHEST 1V, 02/02/2021, 15:48. ? FINDINGS:? ? Surgical changes and devices:? None.? ? Lungs and pleura:? Lungs are clear.? No pleural effusions or pneumothorax.? ? Mediastinum:? Mediastinal contours appear normal.? Heart size is normal.? ? Bones and chest wall:? No suspicious bony lesions.? Overlying soft tissues appear unremarkable.? ? IMPRESSION:? No acute cardiopulmonary disease. ? ? Dictated by: Ashish Marquis M.D. on 09/11/2021 at 2:04 ? ? Approved by: Ashish Marquis M.D. on 09/11/2021 at 2:04 ? ECG Data Interpretation: EKG #3: NSR, rate 98, no ST changes, no occlusive findings, no T wave inversions MDM Narrative Medical decision making narrative: Patient has anion gap of 25. He is given medication for cyclic vomiting including Zofran Protonix and Ativan. Ativan seems to help significantly. However patient heart rate remains elevated in the 120s. He is given 2 L of fluid I have ordered a 3rd. He is given his home medication of metoprolol which he has been unable to take. He also remains quite hypertensive in the ED. Patient is signed out to Dr. Woodruff for further management. Patient received in sign-out from Dr. Danielson. I have performed a detailed history and physical exam. Upon receiving his initial EKG there were concerning ST depressions in multiple leads and a questionably elevated ST segment in AVR. This was immediately sent to on-call Cardiology and we reviewed the patient's case. His story is certainly not classically cardiac in nature, he has no chest pain or shortness of breath. His initial troponin was unremarkable, D-dimer negative. We agree that particularly given his history of upper GI bleed that it was reasonable to hold off on heparin for now, repeat troponin and EKGs and act accordingly. His repeat troponin had risen a bit and EKG remained normal. Not until his 3rd troponin was obtained did he enter into positive territory. Patient is resting comfortably and denies any chest pain or shortness of breath. He is not dizzy nor weak or lightheaded. 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 I have discussed with hospitalist and Cardiology there and we all sure the opinion the patient is appropriate and stable for transfer and requires a higher level of care than we can provide at our facility. Patient understands and is in complete agreement with the plan. <Nick Woodruff, DO - Last Filed: 09/11/21 04:28> Critical Care Time Critical Care Time: Yes Total Critical Care Time: 45 Attestation: The high probability of a clinically significant, sudden or life threatening deterioration of the [CV] system(s) required my full and direct attention, intervention and personal management. The aggregate critical care time was [45] minutes. This time is in addition to time spent performing reported procedures but includes the following: [x] Data Review and interpretation [x] Patient assessment and monitoring of vital signs [x] Documentation x[] Medication orders and management Discharge Plan Departure Patient Disposition: [facility] Clinical Impression: Cyclical vomiting, Acute non-ST elevation myocardial infarction (NSTEMI) Prescriptions: No Action aspirin 325 mg Tablet,Delayed Release (Dr/Ec) 325 mg PO DAILY Qty: 0 0RF nitroglycerin [Nitrostat] 0.4 MG tablet, sublingual 0.4 mg Sublingual SEE INSTRUCTIONS Qty: 2 PRNRF promethazine [Phenergan] 25 mg suppository 25 mg RI Q6H PRN (Reason: nausea and vomiting) Qty: 12 0RF ondansetron 4 mg tablet,disintegrating 4 mg PO Q8H PRN (Reason: nausea and vomiting) Qty: 20 0RF ondansetron 4 mg tablet,disintegrating 4 mg PO Q8H PRN (Reason: nausea and vomiting) Qty: 10 0RF promethazine 25 mg suppository 25 mg RI Q6H PRN (Reason: nausea and vomiting) Qty: 12 0RF pantoprazole [Protonix] 40 mg tablet,delayed release (DR/EC) 40 mg PO DAILY Qty: 14 0RF metoclopramide HCl 10 mg tablet 10 mg PO Q6H PRN (Reason: nausea and vomiting) Qty: 20 0RF promethazine 25 mg suppository 25 mg RI Q6H PRN (Reason: nausea and vomiting) Qty: 12 0RF haloperidol 2 mg tablet 2 mg PO DAILY PRN (Reason: nausea and vomiting) Qty: 10 0RF atorvastatin 40 mg tablet 1 tab PO QPM 0RF glyburide 5 mg tablet 2 tab PO BID 0RF metformin 1,000 mg tablet 1 tab PO BID 0RF insulin NPH isoph U-100 human [Humulin N NPH U-100 Insulin] 100 unit/mL suspension 36 units subcut BID 0RF omeprazole 20 mg capsule,delayed release(DR/EC) 1 cap PO DAILY 0RF metoprolol succinate 25 mg tablet extended release 24 hr 1 tab PO DAILY 0RF losartan 100 mg tablet 1 tab PO DAILY 0RF nitroglycerin 0.2 mg/hr patch 24 hour 1 patch Topical DAILY 0RF Syringes 1 syr miscellaneous DIRECTED 0RF ondansetron [Zofran ODT] 4 mg tablet,disintegrating 4 mg PO Q6-8H PRN (Reason: nausea and vomiting) Qty: 14 0RF pantoprazole [Protonix] 40 mg tablet,delayed release (DR/EC) 40 mg PO QAM Qty: 30 0RF ondansetron 4 mg tablet,disintegrating 4 mg PO Q6-8H PRN (Reason: nausea and vomiting) Qty: 20 0RF
[2021-09-10 19:00] LABS: Troponin I < 0.012 ng/mL (0.01-0.034)
[2021-09-10] MEDS: METOCLOPRAMIDE 10 MG/2 ML INJ IV (20:05)
[2021-09-10] MEDS: METOPROLOL ER 25 MG TABLET PO (20:05)
[2021-09-10] MEDS: LOSARTAN 50 MG TABLET 100 MG PO (20:05)
[2021-09-10] MEDS: LACTATED RINGERS 500 ML 1000 ML IV (20:06)
[2021-09-10 20:31] LABS: HCO3 VBG 21 mmol/L (23-28); Oxygen Saturation VBG 91 % (70-75); PO2 VBG 59 mmHg (35-45); Total CO2 VBG 22 mmol/L (24-29); pH VBG 7.42 (7.33-7.43)
[2021-09-10 20:32] LABS: Ketones (Beta-Hydroxybutyrate) 3.99 mmol/L (<0.27)
[2021-09-10 20:37] LABS: Lactate (Lactic Acid) 4.9 mmol/L (0.7-2.1)
[2021-09-10 20:37] LABS: BUN Creatinine Ratio 22.4 (6-22); Blood Urea Nitrogen 17 mg/dL (9-20); Calcium 9.1 mg/dL (8.4-10.2); Carbon Dioxide 19 mmol/L (22-32); Chloride 102 mmol/L (98-107); Estimated Glomerular Filt Rate > 60.0 mL/min (>60); Glucose 325 mg/dL (80-110); HEMOLYSIS 27 (0-50); Potassium 4.7 mmol/L (3.4-5.1); Sodium 139 mmol/L (137-145)
[2021-09-10] MEDS: ASPIRIN 81 MG CHEW TAB 324 MG PO (20:41)
[2021-09-10] MEDS: NITROGLYCERIN 0.4 MG SL TAB SL (20:42)
[2021-09-10 20:49] LABS: D Dimer < 200 ng/mL (<230)
[2021-09-10 20:55] LABS: Creatine Kinase 178 U/L (55-170); Lactate (Lactic Acid) 2.5 mmol/L (0.7-2.1)
--- NOTE | 2021-09-10 20:56 | PC.NURSE ---
CP went from 12/03 to 11/02 and BP dropped to 131/61. Will hold additional doses of nitro
[2021-09-10 21:08] LABS: Troponin I 0.036 ng/mL (0.01-0.034)
[2021-09-10 21:10] LABS: CKMB % Relative Index 1.6 % (1.5-5.0); Creatine Kinase MB 2.88 ng/mL (<2.37)
[2021-09-10 22:00] LABS: COVID19 -Nasal RAPID Negative (Negative)
[2021-09-10 22:06] LABS: Reflexed Lactate in 2 Hours Y
[2021-09-11] VITALS (22 sets, daily range): BP systolic 108–162; BP diastolic 59–85; PULSE 91–113; RESP 13–35; O2SAT 93–99
[2021-09-11 00:08] LABS: Alanine Aminotransferase 28 IU/L (<50); Albumin 4.4 g/dL (3.5-5.0); Albumin Globulin Ratio 1.6 (1.0-2.8); Alkaline Phosphatase 40 U/L (38-126); Aspartate Aminotransferase 29 IU/L (17-59); BUN Creatinine Ratio 21.9 (6-22); Bilirubin Total 0.6 mg/dL (0.2-1.3); Blood Urea Nitrogen 16 mg/dL (9-20); Calcium 8.9 mg/dL (8.4-10.2); Carbon Dioxide 26 mmol/L (22-32); Chloride 103 mmol/L (98-107); Estimated Glomerular Filt Rate > 60.0 mL/min (>60); Globulin 2.7 g/dL (1.7-4.1); Glucose 288 mg/dL (80-110); HEMOLYSIS 46 (0-50); Potassium 4.6 mmol/L (3.4-5.1); Sodium 139 mmol/L (137-145); Total Protein 7.1 g/dL (6.3-8.2)
[2021-09-11 00:13] LABS: Lactate (Lactic Acid) 1.2 mmol/L (0.7-2.1)
[2021-09-11 00:48] LABS: Troponin I 0.273 ng/mL (0.01-0.034)
[2021-09-11] MEDS: HEPARIN 5,000 UNIT/ML VIAL 5000 UNIT IV (01:44)
[2021-09-11] MEDS: HEPARIN DRIP 25,000 UNIT/500 ML IV.SOLN 20 UNIT IV (01:44)
[2021-09-11 01:48] LABS: PTT Partial Thromboplastin Tim 30 SECONDS (26.4-36.2)
--- NOTE | 2021-09-11 01:55 | DI.RAD.S_ITS ---
PROCEDURE: XR CHEST 1V INDICATIONS: chest pain TECHNIQUE: One view of the chest was acquired. COMPARISON: [facility], CR, XR CHEST 1V, 02/02/2021, 15:48. FINDINGS: Surgical changes and devices: None. Lungs and pleura: Lungs are clear. No pleural effusions or pneumothorax. Mediastinum: Mediastinal contours appear normal. Heart size is normal. Bones and chest wall: No suspicious bony lesions. Overlying soft tissues appear unremarkable. IMPRESSION: No acute cardiopulmonary disease. Dictated by: Ashish Marquis M.D. on 09/11/2021 at 2:04 Approved by: Ashish Marquis M.D. on 09/11/2021 at 2:04
== END 2021-09-11 05:22 | disposition short-term general hospital (02) ==
PROVIDERS: Emergency Medicine; Emergency Provider Emergency Medicine
DX: I21.4 Non-ST elevation (NSTEMI) myocardial infarction (principal); R11.15 Cyclical vomiting syndrome unrelated to migraine; Z20.822 Contact with and (suspected) exposure to COVID-19; F17.200 Nicotine dependence, unspecified, uncomplicated
CPT/HCPCS: 36415; 71045; 80048; 80053; 81003; 81015; 82009; 82550; 82553; 82805; 83036; 83605; 83690; 84484; 85025; 85379; 85730; 87635; 93005; 96361; 96365; 96366; 96375; 99285; 99291; C9803; C9113; J1644; J2060; J2405; J2765

== ENCOUNTER 2021-09-13 22:32 | Emergency (ER) | payer OTHER, MEDICAID, SELFPAY ==
[2021-09-13 22:45] VITALS: BP 243/114; PULSE 93; RESP 23; TEMP 36.3; O2SAT 100; BMI 34.7
--- NOTE | 2021-09-13 22:52 | ED.GENADULT ---
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 He had a similar presentation on September 10 at that time had an increasing troponin and was transferred to [facility] for management of NSTEMI. Per his description, this was treated medically and he did not have a heart catheterization. Was discharged home on September 11. Had been doing fairly well until this evening around 6:30 p.m., shortly after taking his Byetta injection, began profusely vomiting to the point where he is simply having dry heaves. He does note that the Byetta has been causing nausea and he was concerned that that may have been the initial inciting event with his previous ER and subsequent hospital stay. He measured his blood pressure and it is significantly elevated in the 220/120 range. He states he took his 25 mg of metoprolol succinate this evening but probably vomited the dose up. In terms of the severe vomiting, he states that he has been trying very hard to stay away from marijuana and seems to be more successful with this after starting Prozac. He has not had any marijuana since prior to ER visit on the . When asked any questions he refers to an exceptionally detailed spiral ring note book where he keeps track of all of his thoughts and medical issues. He notes that he is not having any headaches acute neurologic symptoms, chest pain, dyspnea, or palpitations. He has some epigastric tenderness from the dry heaves but at this point is no longer producing any vomitus. He describes no bowel movement for about 5 days which is unusual for him. Related Data Home Medications Medication Instructions Recorded Confirmed aspirin 325 mg tablet,delayed 325 mg PO DAILY #0 02/03/12 08/17/18 release Syringes 1 syr MISCELLANEOUS DIRECTED 08/17/18 08/17/18 atorvastatin 40 mg tablet 1 tab PO QPM 08/17/18 08/17/18 glyburide 5 mg tablet 2 tab PO BID 08/17/18 08/17/18 insulin NPH isoph U-100 human 100 36 units SUBCUT BID 08/17/18 08/17/18 unit/mL subcutaneous suspension losartan 100 mg tablet 1 tab PO DAILY 08/17/18 08/17/18 metformin 1,000 mg tablet 1 tab PO BID 08/17/18 08/17/18 metoprolol succinate 25 mg 1 tab PO DAILY 08/17/18 08/17/18 tablet,extended release 24 hr nitroglycerin 0.2 mg/hr 1 patch TOPICAL DAILY 08/17/18 08/17/18 transdermal 24 hour patch omeprazole 20 mg capsule,delayed 1 cap PO DAILY 08/17/18 08/17/18 release Previous Rx's Medication Instructions Recorded nitroglycerin 0.4 mg sublingual 0.4 mg SUBLINGUAL SEE INSTRUCTIONS 04/02/13 tablet (Nitrostat) #2 bot ondansetron 4 mg disintegrating 4 mg PO Q6-8H PRN #14 tab 08/17/18 tablet (Zofran ODT) ondansetron 4 mg disintegrating 4 mg PO Q8H PRN #20 tab 04/15/19 tablet promethazine 25 mg rectal 25 mg NH Q6H PRN #12 each 04/15/19 suppository (Phenergan) ondansetron 4 mg disintegrating 4 mg PO Q6-8H PRN #20 tab 12/26/19 tablet pantoprazole 40 mg tablet,delayed 40 mg PO QAM #30 tab 12/26/19 release (Protonix) ondansetron 4 mg disintegrating 4 mg PO Q8H PRN #10 tab 02/02/21 tablet promethazine 25 mg rectal 25 mg NH Q6H PRN #12 ea 02/02/21 suppository haloperidol 2 mg tablet 2 mg PO DAILY PRN #10 tab 04/25/21 metoclopramide HCl 10 mg tablet 10 mg PO Q6H PRN #20 tab 04/25/21 pantoprazole 40 mg tablet,delayed 40 mg PO DAILY #14 tab 04/25/21 release (Protonix) promethazine 25 mg rectal 25 mg NH Q6H PRN #12 ea 04/25/21 suppository Allergies Allergy/AdvReac Type Severity Reaction Status Date / Time No Known Drug Allergies Allergy Verified 09/10/21 14:49 Review of Systems Review of Systems Narrative: Many of the review of system questions he declines to answer directly and defers to his exceptionally detailed chronicle of his daily life. Remainder of complete review of systems is otherwise unremarkable except for that included in the HPI. Patient History Medical History (Updated 09/14/21 @ 01:20 by Dona Arias MD) Cannabinoid hyperemesis syndrome Coronary artery disease Diabetes Gastroesophageal reflux disease Hypertension Surgical History No pertinent past surgical history Social History Smoking Status: Current every day smoker Smoking Status: Current every day smoker alcohol intake frequency: other Substance Use Type: marijuana Exam Narrative Exam Narrative: General: Healthy appearing, violently retching with no emesis. Well-nourished well-developed, able to speak in full questions but reluctant to answer any questions in lieu of referral to the exceptionally detailed logs that he has kept of daily life events. HEENT: Moist mucous membranes, normal sclera with reactive pupils, Neck: No JVD, supple Respiratory: Lungs are clear to auscultation, no wheezing no rales no rhonchi. Full and symmetrical air movement Cardiac: Regular rate and rhythm no murmurs no bruits Abdomen: Soft, nontender, good bowel tones, no flank pain Skin: Warm and dry, no rashes Neurologic: Grossly neurologically intact with no obvious asymmetries or abnormalities Extremities: No trauma, well perfused Psych: Fluent speech content, no auditory or visual hallucinations Initial Vital Signs Initial Vital Signs: Vital Signs Temperature 97.4 F L 09/13/21 22:45 Pulse Rate 93 H 09/13/21 22:45 Respiratory Rate 23 09/13/21 22:45 Blood Pressure 243/114 H 09/13/21 22:45 Pulse Oximetry 100 09/13/21 22:45 Course Orders Ordered: ED Orders 09/13/21 22:45 Complete Blood Count AUTO DIFF Stat Comprehensive Metabolic Panel Stat Ketones (Beta-Hydroxybutyrate) Stat Lactate (Lactic Acid) Stat Magnesium Stat NT-proBNP (BNP-Adult 18+) Stat Troponin I Stat 09/13/21 22:56 XR chest 1V Stat EKG-12 Lead Stat 09/13/21 23:14 COVID19 - ADMIT (SCRAP SAWYER swab/PCR) Stat 09/14/21 00:12 Urinalysis and Microscopic Stat 09/14/21 00:30 Lactate (Lactic Acid) Stat Trop I [Troponin I] Stat Discontinued Medications Sodium Chloride (Normal Saline 0.9%) 1,000 mls @ 1,000 mls/hr IV BOLUS ONE Stop: 09/13/21 23:54 Last Admin: 09/13/21 23:01 Dose: 1,000 mls/hr Documented by: KRYSTLE Sodium Chloride (Normal Saline 0.9%) 1,000 mls @ 1,000 mls/hr IV BOLUS ONE Stop: 09/14/21 01:11 Last Admin: 09/14/21 01:17 Dose: 1,000 mls/hr Documented by: Labetalol HCl (Labetalol 20 Mg/4 Ml Syringe) 20 mg IV NOW ONE Stop: 09/14/21 00:12 Last Admin: 09/14/21 00:17 Dose: 20 mg Documented by: NAILA Metoclopramide HCl (Metoclopramide 10 Mg/2 Ml Inj) 10 mg IV NOW ONE Stop: 09/14/21 00:14 Last Admin: 09/14/21 00:18 Dose: 10 mg Documented by: NAILA Ondansetron HCl (Ondansetron 4 Mg/2 Ml Inj) 4 mg IV NOW ONE Stop: 09/13/21 22:56 Last Admin: 09/13/21 23:01 Dose: 4 mg Documented by: KRYSTLE Vital Signs Vital signs: Vital Signs - 8 hr 09/13/21 22:45 09/13/21 22:53 09/13/21 23:00 Temperature 97.4 F L Pulse Rate 93 H 88 95 H Respiratory Rate 23 21 Blood Pressure 243/114 H Pulse Oximetry 100 100 100 09/13/21 23:01 09/14/21 00:17 09/14/21 00:54 Temperature Pulse Rate 96 H 83 82 Respiratory Rate 26 H Blood Pressure 233/106 H 221/103 H 138/60 Pulse Oximetry 100 Medical Decision Making Lab Data Result diagrams: 09/13/21 22:45 09/13/21 22:45 Labs: Lab Results 09/13/21 09/13/21 09/13/21 Range/Units 22:45 22:45 22:45 WBC 13.0 H (4.5-11.0) X10^3/uL RBC 5.34 (4.5-5.9) X10^6/uL Hgb 15.5 (13.5-17.5) g/dL Hct 46.9 (41-53) % MCV 87.9 (80-100) fL MCH 29.1 (26-34) PG MCHC 33.1 (30-36) % RDW 13.5 (11.6-14.8) % Plt Count 305 (150-400) X10^3/uL Neut % (Auto) 87.1 H (50-75) % Lymph % (Auto) 8.5 L (25-40) % Dare % (Auto) 3.7 (3-14) % Eos % (Auto) 0.3 L (2-4) % Baso % (Auto) 0.4 (0-2) % Neut # (Auto) 68926 H (6030-2548) /uL Lymph # (Auto) 1100 (1703-8983) /uL Dare # (Auto) 500 (0-900) /uL Eos # (Auto) 0 (0-450) /uL Baso # (Auto) 0 (0-100) /uL Sodium 135 L (137-145) mmol/L Potassium 3.8 (3.4-5.1) mmol/L Chloride 95 L (98-107) mmol/L Carbon Dioxide 23 (22-32) mmol/L BUN 15 (9-20) mg/dL Creatinine 0.79 (0.66-1.25) mg/dL Estimated GFR > 60.0 (>60) mL/min BUN/Creatinine Ratio 19.0 (6-22) Glucose 317 H (80-110) mg/dL Lactate 2.9 H (0.7-2.1) mmol/L Calcium 9.9 (8.4-10.2) mg/dL Magnesium 1.4 L (1.6-2.3) mg/dL Total Bilirubin 1.0 (0.2-1.3) mg/dL AST 39 (17-59) IU/L ALT 34 (<50) IU/L Alkaline Phosphatase 67 (38-126) U/L Troponin I (0.01-0.034) ng/mL NT-Pro-B Natriuret Pep (<125) pg/mL Total Protein 8.4 H (6.3-8.2) g/dL Albumin 5.1 H (3.5-5.0) g/dL Globulin 3.3 (1.7-4.1) g/dL Albumin/Globulin Ratio 1.5 (1.0-2.8) Urine Color Urine Appearance Urine pH (4.5-8.0) Ur Specific Walker (1.000-1.035) Urine Protein (Negative) Urine Glucose (UA) (Negative) g/dL Urine Ketones (NEGATIVE) Urine Occult Blood (Negative) Urine Nitrate (Negative) Urine Bilirubin (NEGATIVE) Urine Urobilinogen (0.2) E.U./dL Ur Leukocyte Esterase (NEGATIVE) Urine RBC (0-5/HPF) Urine WBC (0-5/HPF) Urine Bacteria (None) Urine Mucus (Negative) Ur Culture Indicated? Ketones 2.62 H (<0.27) mmol/L SARS-CoV-2 (PCR) (Negative) 09/13/21 09/13/21 09/14/21 Range/Units 22:45 23:14 00:12 WBC (4.5-11.0) X10^3/uL RBC (4.5-5.9) X10^6/uL Hgb (13.5-17.5) g/dL Hct (41-53) % MCV (80-100) fL MCH (26-34) PG MCHC (30-36) % RDW (11.6-14.8) % Plt Count (150-400) X10^3/uL Neut % (Auto) (50-75) % Lymph % (Auto) (25-40) % Dare % (Auto) (3-14) % Eos % (Auto) (2-4) % Baso % (Auto) (0-2) % Neut # (Auto) (9237-6043) /uL Lymph # (Auto) (9529-1195) /uL Dare # (Auto) (0-900) /uL Eos # (Auto) (0-450) /uL Baso # (Auto) (0-100) /uL Sodium (137-145) mmol/L Potassium (3.4-5.1) mmol/L Chloride (98-107) mmol/L Carbon Dioxide (22-32) mmol/L BUN (9-20) mg/dL Creatinine (0.66-1.25) mg/dL Estimated GFR (>60) mL/min BUN/Creatinine Ratio (6-22) Glucose (80-110) mg/dL Lactate (0.7-2.1) mmol/L Calcium (8.4-10.2) mg/dL Magnesium (1.6-2.3) mg/dL Total Bilirubin (0.2-1.3) mg/dL AST (17-59) IU/L ALT (<50) IU/L Alkaline Phosphatase (38-126) U/L Troponin I 0.104 H (0.01-0.034) ng/mL NT-Pro-B Natriuret Pep 114 (<125) pg/mL Total Protein (6.3-8.2) g/dL Albumin (3.5-5.0) g/dL Globulin (1.7-4.1) g/dL Albumin/Globulin Ratio (1.0-2.8) Urine Color Yellow Urine Appearance Clear Urine pH 5.0 (4.5-8.0) Ur Specific Walker 1.020 (1.000-1.035) Urine Protein Trace H (Negative) Urine Glucose (UA) 2+ H (Negative) g/dL Urine Ketones 3+ H (NEGATIVE) Urine Occult Blood Trace-lysed (Negative) Urine Nitrate Negative (Negative) Urine Bilirubin Negative (NEGATIVE) Urine Urobilinogen 0.2 (0.2) E.U./dL Ur Leukocyte Esterase Negative (NEGATIVE) Urine RBC None seen (0-5/HPF) Urine WBC None seen (0-5/HPF) Urine Bacteria None seen (None) Urine Mucus 1+ H (Negative) Ur Culture Indicated? Cult not indicated Ketones (<0.27) mmol/L SARS-CoV-2 (PCR) Negative (Negative) 09/14/21 09/14/21 Range/Units 00:30 00:30 WBC (4.5-11.0) X10^3/uL RBC (4.5-5.9) X10^6/uL Hgb (13.5-17.5) g/dL Hct (41-53) % MCV (80-100) fL MCH (26-34) PG MCHC (30-36) % RDW (11.6-14.8) % Plt Count (150-400) X10^3/uL Neut % (Auto) (50-75) % Lymph % (Auto) (25-40) % Dare % (Auto) (3-14) % Eos % (Auto) (2-4) % Baso % (Auto) (0-2) % Neut # (Auto) (2391-5077) /uL Lymph # (Auto) (4268-1734) /uL Dare # (Auto) (0-900) /uL Eos # (Auto) (0-450) /uL Baso # (Auto) (0-100) /uL Sodium (137-145) mmol/L Potassium (3.4-5.1) mmol/L Chloride (98-107) mmol/L Carbon Dioxide (22-32) mmol/L BUN (9-20) mg/dL Creatinine (0.66-1.25) mg/dL Estimated GFR (>60) mL/min BUN/Creatinine Ratio (6-22) Glucose (80-110) mg/dL Lactate 1.7 (0.7-2.1) mmol/L Calcium (8.4-10.2) mg/dL Magnesium (1.6-2.3) mg/dL Total Bilirubin (0.2-1.3) mg/dL AST (17-59) IU/L ALT (<50) IU/L Alkaline Phosphatase (38-126) U/L Troponin I 0.090 H (0.01-0.034) ng/mL NT-Pro-B Natriuret Pep (<125) pg/mL Total Protein (6.3-8.2) g/dL Albumin (3.5-5.0) g/dL Globulin (1.7-4.1) g/dL Albumin/Globulin Ratio (1.0-2.8) Urine Color Urine Appearance Urine pH (4.5-8.0) Ur Specific Walker (1.000-1.035) Urine Protein (Negative) Urine Glucose (UA) (Negative) g/dL Urine Ketones (NEGATIVE) Urine Occult Blood (Negative) Urine Nitrate (Negative) Urine Bilirubin (NEGATIVE) Urine Urobilinogen (0.2) E.U./dL Ur Leukocyte Esterase (NEGATIVE) Urine RBC (0-5/HPF) Urine WBC (0-5/HPF) Urine Bacteria (None) Urine Mucus (Negative) Ur Culture Indicated? Ketones (<0.27) mmol/L SARS-CoV-2 (PCR) (Negative) Point of Care Testing Glucose POC 305 Point of care testing: Point of Care Testing Glucose POC 305 ECG Data Interpretation: Sinus rhythm at a rate of 85 Normal intervals, normal axis No acute ischemic changes MDM Narrative Medical decision making narrative: 61-year-old gentleman likely having significant reaction to the recent Byetta injection this evening with profound vomiting. Similar events number of days ago with subsequent NSTEMI. He does look like he is relatively dehydrated, no signs of congestive heart failure. No obvious signs of symptomatic neurologic or cardiac secondary complication with dramatically elevated blood pressures. Fluids are started, with Zofran not being as effective as he would like will try adding metoclopramide. Initial troponin is elevated at 0.104. Troponin prior to transfer to [facility] on September 10 had been 0.273 unclear if this had trended all the way down and is increasing again or continuing to trend down. Will need to repeat at 2:00 a.m.. Lactic acid was slightly elevated at 2.9 and this too will need to be repeated. Will continue to evaluate blood pressure. Will give him IV labetalol to see if this influences his blood pressure and once nausea has calmed somewhat will give him his 100 mg of usual evening losartan Blood pressures come down nicely with a single dose of IV labetalol. Repeat lactic acid and troponin are both trending down. The IV Zofran and Reglan have controlled his retching. 1:15am re-evaluated. Sleeping comfortably. Labs reviewed with him. He requested another L of fluid which will be facilitated. After that will anticipate discharge home Discharge Plan Departure Patient Disposition: Home Clinical Impression: Nausea & vomiting, Adverse reaction to drug Instructions: DI for Vomiting -- Adult Activity Restrictions/Additional Instructions: Thank you for coming in today. Your blood work was reassuring and when repeated after the initial fluid had been given was even more so. There is no evidence of kidney failure, heart attack, acute infection or other issue that would require hospitalization this time. 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 I would recommend discontinuing this medicine. You will need to follow-up with your primary care doctor regarding alternatives. Your blood pressure was significantly elevated on arrival once your nausea was controlled in with a single dose of IV labetalol(similar to your usual oral metoprolol) your blood pressures have come down nicely and stay down. Please continue all of your usual medications when she gets home. Congratulations on avoiding marijuana over the last number of days. It can be hard to stop, but for you, staying way for been is going to continue to be beneficial. Incidental finding: While your sleep in the ER your oxygen saturations would routinely dip down as low as 86%. If you have not yet had a sleep study, you need one and would likely benefit from CPAP or at least oxygen at night while sleeping. Please discuss this with your primary care doctor Prescriptions: No Action aspirin 325 mg Tablet,Delayed Release (Dr/Ec) 325 mg PO DAILY Qty: 0 0RF nitroglycerin [Nitrostat] 0.4 MG tablet, sublingual 0.4 mg Sublingual SEE INSTRUCTIONS Qty: 2 PRNRF promethazine [Phenergan] 25 mg suppository 25 mg NH Q6H PRN (Reason: nausea and vomiting) Qty: 12 0RF ondansetron 4 mg tablet,disintegrating 4 mg PO Q8H PRN (Reason: nausea and vomiting) Qty: 20 0RF ondansetron 4 mg tablet,disintegrating 4 mg PO Q8H PRN (Reason: nausea and vomiting) Qty: 10 0RF promethazine 25 mg suppository 25 mg NH Q6H PRN (Reason: nausea and vomiting) Qty: 12 0RF pantoprazole [Protonix] 40 mg tablet,delayed release (DR/EC) 40 mg PO DAILY Qty: 14 0RF metoclopramide HCl 10 mg tablet 10 mg PO Q6H PRN (Reason: nausea and vomiting) Qty: 20 0RF promethazine 25 mg suppository 25 mg NH Q6H PRN (Reason: nausea and vomiting) Qty: 12 0RF haloperidol 2 mg tablet 2 mg PO DAILY PRN (Reason: nausea and vomiting) Qty: 10 0RF atorvastatin 40 mg tablet 1 tab PO QPM 0RF glyburide 5 mg tablet 2 tab PO BID 0RF metformin 1,000 mg tablet 1 tab PO BID 0RF insulin NPH isoph U-100 human [Humulin N NPH U-100 Insulin] 100 unit/mL suspension 36 units subcut BID 0RF omeprazole 20 mg capsule,delayed release(DR/EC) 1 cap PO DAILY 0RF metoprolol succinate 25 mg tablet extended release 24 hr 1 tab PO DAILY 0RF losartan 100 mg tablet 1 tab PO DAILY 0RF nitroglycerin 0.2 mg/hr patch 24 hour 1 patch Topical DAILY 0RF Syringes 1 syr miscellaneous DIRECTED 0RF ondansetron [Zofran ODT] 4 mg tablet,disintegrating 4 mg PO Q6-8H PRN (Reason: nausea and vomiting) Qty: 14 0RF pantoprazole [Protonix] 40 mg tablet,delayed release (DR/EC) 40 mg PO QAM Qty: 30 0RF ondansetron 4 mg tablet,disintegrating 4 mg PO Q6-8H PRN (Reason: nausea and vomiting) Qty: 20 0RF
[2021-09-13 22:53] VITALS: PULSE 88; O2SAT 100
--- NOTE | 2021-09-13 22:56 | DI.RAD.S_ITS ---
PROCEDURE: XR CHEST 1V INDICATIONS: CHest pain TECHNIQUE: One view of the chest was acquired. COMPARISON: [facility], , XR CHEST 1V, 09/11/2021, 1:56. FINDINGS: Surgical changes and devices: None. Lungs and pleura: Lungs are clear. No pleural effusions or pneumothorax. Mediastinum: Mediastinal contours appear normal. Heart size is normal. Bones and chest wall: No suspicious bony lesions. Overlying soft tissues appear unremarkable. IMPRESSION: No acute cardiopulmonary findings Approved by: Forest Strong M.D. on 09/13/2021 at 23:29
[2021-09-13 23:00] VITALS: PULSE 95; RESP 21; O2SAT 100
[2021-09-13 23:01] VITALS: BP 233/106; PULSE 96; RESP 26; O2SAT 100
[2021-09-13] MEDS: SODIUM CHLORIDE 0.9% 1,000 ML 1000 ML IV (23:01)
[2021-09-13] MEDS: ONDANSETRON 4 MG/2 ML INJ IV (23:01)
[2021-09-13 23:24] LABS: Alanine Aminotransferase 34 IU/L (<50); Albumin 5.1 g/dL (3.5-5.0); Albumin Globulin Ratio 1.5 (1.0-2.8); Alkaline Phosphatase 67 U/L (38-126); Aspartate Aminotransferase 39 IU/L (17-59); Blood Urea Nitrogen 15 mg/dL (9-20); Calcium 9.9 mg/dL (8.4-10.2); Carbon Dioxide 23 mmol/L (22-32); Chloride 95 mmol/L (98-107); Estimated Glomerular Filt Rate > 60.0 mL/min (>60); Globulin 3.3 g/dL (1.7-4.1); Glucose 317 mg/dL (80-110); HEMOLYSIS < 15 (0-50); Lactate (Lactic Acid) 2.9 mmol/L (0.7-2.1); Magnesium 1.4 mg/dL (1.6-2.3); Potassium 3.8 mmol/L (3.4-5.1); Sodium 135 mmol/L (137-145); Total Protein 8.4 g/dL (6.3-8.2)
[2021-09-13 23:25] LABS: Add Manual Diff / Slide Review NO; Basophils Absolute Auto 0 /uL (0-100); Basophils Percent Auto 0.4 % (0-2); Eosinophils Absolute Auto 0 /uL (0-450); Eosinophils Percent Auto 0.3 % (2-4); Hematocrit 46.9 % (41-53); Hemoglobin 15.5 g/dL (13.5-17.5); Lymphocytes Absolute Auto 1100 /uL (1100-4500); Lymphocytes Percent Auto 8.5 % (25-40); Mean Corpuscular HGB Conc 33.1 % (30-36); Mean Corpuscular Hemoglobin 29.1 PG (26-34); Mean Corpuscular Volume 87.9 fL (80-100); Monocytes Absolute Auto 500 /uL (0-900); Monocytes Percent Auto 3.7 % (3-14); Neutrophils Absolute Auto 11300 /uL (1500-7000); Neutrophils Percent Auto 87.1 % (50-75); Platelet Count 305 X10^3/uL (150-400); Red Blood Cell Count 5.34 X10^6/uL (4.5-5.9); Red Cell Distribution Width 13.5 % (11.6-14.8)
[2021-09-13 23:27] LABS: Ketones (Beta-Hydroxybutyrate) 2.62 mmol/L (<0.27)
[2021-09-13 23:30] VITALS: PULSE 81; RESP 12; O2SAT 95
[2021-09-13 23:31] VITALS: BP 240/144; PULSE 85; RESP 14; O2SAT 95
[2021-09-13 23:39] LABS: NT-proBNP (BNP-Adult 18+) 114 pg/mL (<125); Troponin I 0.104 ng/mL (0.01-0.034)
[2021-09-14] VITALS (11 sets, daily range): BP systolic 125–221; BP diastolic 58–103; PULSE 81–98; RESP 12–23; O2SAT 91–99
[2021-09-14 00:14] LABS: COVID19 - ADMIT (NP swab/PCR) Negative (Negative)
[2021-09-14] MEDS: LABETALOL 20 MG/4 ML SYRINGE IV (00:17)
[2021-09-14] MEDS: METOCLOPRAMIDE 10 MG/2 ML INJ IV (00:18)
[2021-09-14 00:23] LABS: Appearance Urine UA CLEAR; Bilirubin Urine UA NEGATIVE (NEGATIVE); Color Urine UA YELLOW; Glucose Urine UA 2+ g/dL (Negative); Ketones Urine UA 3+ (NEGATIVE); Leukocyte Esterase Urine UA NEGATIVE (NEGATIVE); Nitrite Urine UA NEGATIVE (Negative); Occult Blood Urine UA TRACE-LYSED (Negative); Protein Urine UA TRACE (Negative); Urobilinogen Urine UA 0.2 E.U./dL (0.2)
[2021-09-14 00:40] LABS: Bacteria Urine None Seen; Culture Indicated Urine Cult Not Indicated; Mucus Urine 1+ (Negative); RBC Urine None Seen (0-5/HPF); WBC Urine None Seen (0-5/HPF)
[2021-09-14 00:45] LABS: Lactate (Lactic Acid) 1.7 mmol/L (0.7-2.1)
[2021-09-14 01:13] LABS: Reflexed Lactate in 2 Hours Y
[2021-09-14] MEDS: SODIUM CHLORIDE 0.9% 1,000 ML 1000 ML IV (01:17)
--- NOTE | 2021-09-14 02:27 | PC.NURSE ---
Throughout pt's stay while sleeping pt's O2 sat will drop to 86%. Placed on 2L NC to account for drop in O2 while sleeping
== END 2021-09-14 02:28 | disposition home or self-care (01) ==
PROVIDERS: Emergency Provider Emergency Medicine
DX: R11.2 Nausea with vomiting, unspecified (principal); I10 Essential (primary) hypertension; T38.3X5A Adverse effect of insulin and oral hypoglycemic [antidiabetic] drugs, initial encounter; F17.200 Nicotine dependence, unspecified, uncomplicated; Z20.822 Contact with and (suspected) exposure to COVID-19
CPT/HCPCS: 36415; 71045; 80053; 81001; 82009; 82962; 83605; 83735; 83880; 84484; 85025; 87635; 93005; 96361; 96374; 96375; 99284; C9803; J2405; J2765

== ENCOUNTER 2021-10-26 14:12 | Emergency (ER) | payer OTHER, MEDICAID, SELFPAY ==
[2021-10-26] VITALS (37 sets, daily range): BP systolic 122–240; BP diastolic 55–119; PULSE 77–98; RESP 0–30; TEMP 36.8; O2SAT 87–100; BMI 34.7
[2021-10-26] MEDS: ONDANSETRON 4 MG/2 ML INJ IV (14:41)
[2021-10-26 14:54] LABS: COVID19 -Nasal RAPID Negative (Negative)
[2021-10-26 14:54] LABS: Prothrombin Time 11.5 SECONDS (10.1-12.7)
[2021-10-26 14:56] LABS: Add Manual Diff / Slide Review NO; Basophils Absolute Auto 100 /uL (0-100); Basophils Percent Auto 0.8 % (0-2); Eosinophils Absolute Auto 100 /uL (0-450); Hematocrit 44.1 % (41-53); Hemoglobin 15.1 g/dL (13.5-17.5); Lymphocytes Absolute Auto 1600 /uL (1100-4500); Lymphocytes Percent Auto 11.8 % (25-40); Mean Corpuscular HGB Conc 34.2 % (30-36); Mean Corpuscular Hemoglobin 29.8 PG (26-34); Mean Corpuscular Volume 86.9 fL (80-100); Monocytes Absolute Auto 700 /uL (0-900); Monocytes Percent Auto 5.1 % (3-14); Neutrophils Absolute Auto 11200 /uL (1500-7000); Neutrophils Percent Auto 81.3 % (50-75); PTT Partial Thromboplastin Tim 28 SECONDS (26.4-36.2); Platelet Count 339 X10^3/uL (150-400); Red Blood Cell Count 5.07 X10^6/uL (4.5-5.9); White Blood Cell Count 13.8 X10^3/uL (4.5-11.0)
[2021-10-26 14:58] LABS: Alanine Aminotransferase 27 IU/L (<50); Albumin Globulin Ratio 1.6 (1.0-2.8); Alkaline Phosphatase 73 U/L (38-126); Aspartate Aminotransferase 32 IU/L (17-59); BUN Creatinine Ratio 14.1 (6-22); Bilirubin Total 0.8 mg/dL (0.2-1.3); Blood Urea Nitrogen 11 mg/dL (9-20); Carbon Dioxide 25 mmol/L (22-32); Chloride 100 mmol/L (98-107); Creatine Kinase 180 U/L (55-170); Estimated Glomerular Filt Rate > 60.0 mL/min (>60); Globulin 3.2 g/dL (1.7-4.1); Glucose 244 mg/dL (80-110); HEMOLYSIS < 15 (0-50); Lipase 304 U/L (23-300); Potassium 3.5 mmol/L (3.4-5.1); Sodium 138 mmol/L (137-145); Total Protein 8.2 g/dL (6.3-8.2)
[2021-10-26 15:09] LABS: Troponin I < 0.012 ng/mL (0.01-0.034)
[2021-10-26 15:13] LABS: CKMB % Relative Index 1.3 % (1.5-5.0)
[2021-10-26] MEDS: SODIUM CHLORIDE 0.9% 1,000 ML 1000 ML IV ×2 (15:24→16:17)
[2021-10-26] MEDS: METOCLOPRAMIDE 10 MG/2 ML INJ IV (15:25)
[2021-10-26] MEDS: diphenhydrAMINE 50 MG/ML VIAL 25 MG IV ×2 (15:26→18:03)
[2021-10-26] MEDS: LABETALOL 20 MG/4 ML SYRINGE IV ×2 (15:28→18:03)
--- NOTE | 2021-10-26 17:35 | ED_ITS ---
HPI - Nausea/Vomiting/Diarrhea <Dona Arias MD - Last Filed: 10/27/21 08:07> General Chief complaint: Nausea/Vomiting/Diarrhea Stated complaint: Vomiting Time Seen by Provider: 10/26/21 14:46 Source: patient Mode of arrival: Ambulatory History of Present Illness HPI Narrative: 60-year-old gentleman with coronary artery disease post stenting, insulin- dependent diabetes to, hypertension, hyperlipidemia, self-described ?multiple mental health issues recurrent episodes of persistent vomiting likely a compon ent of both cannabinoid hyperemesis syndrome and diabetic gastroparesis. He tends to manage relatively well at home with different antiemetics however over the last 3 days. The 1st 2 days he was able to keep the nausea somewhat under control however this morning been violently retching and despite all home efforts continues to violently retch. He tried to hot baths and found that was ineffective. He notes that with his cannabis use he seems to a file and the appropriate dose the does not seem to set off his cannabinoid hyperemesis syndrome. He is in the middle of workup with [facility] gastro[facility]ology regarding diabetic gastroparesis. He describes dramatic nausea emesis now to the dry heaves point, no fevers, palpitations. Chest pain due to the severity of the dry heaves. Had no diarrhea he is developing a headache again because of the severity of the dry heaves. He had a recent normal bowel movement and continues to pass flatus Related Data Home Medications Medication Instructions Recorded Confirmed aspirin 325 mg tablet,delayed 325 mg PO DAILY #0 02/03/12 08/17/18 release Syringes 1 syr MISCELLANEOUS DIRECTED 08/17/18 08/17/18 atorvastatin 40 mg tablet 1 tab PO QPM 08/17/18 08/17/18 glyburide 5 mg tablet 2 tab PO BID 08/17/18 08/17/18 insulin NPH isoph U-100 human 100 36 units SUBCUT BID 08/17/18 08/17/18 unit/mL subcutaneous suspension losartan 100 mg tablet 1 tab PO DAILY 08/17/18 08/17/18 metformin 1,000 mg tablet 1 tab PO BID 08/17/18 08/17/18 metoprolol succinate 25 mg 1 tab PO DAILY 08/17/18 08/17/18 tablet,extended release 24 hr nitroglycerin 0.2 mg/hr 1 patch TOPICAL DAILY 08/17/18 08/17/18 transdermal 24 hour patch omeprazole 20 mg capsule,delayed 1 cap PO DAILY 08/17/18 08/17/18 release Previous Rx's Medication Instructions Recorded nitroglycerin 0.4 mg sublingual 0.4 mg SUBLINGUAL SEE INSTRUCTIONS 04/02/13 tablet (Nitrostat) #2 bot ondansetron 4 mg disintegrating 4 mg PO Q6-8H PRN #14 tab 08/17/18 tablet (Zofran ODT) ondansetron 4 mg disintegrating 4 mg PO Q8H PRN #20 tab 04/15/19 tablet promethazine 25 mg rectal 25 mg TN Q6H PRN #12 each 04/15/19 suppository (Phenergan) ondansetron 4 mg disintegrating 4 mg PO Q6-8H PRN #20 tab 12/26/19 tablet pantoprazole 40 mg tablet,delayed 40 mg PO QAM #30 tab 12/26/19 release (Protonix) ondansetron 4 mg disintegrating 4 mg PO Q8H PRN #10 tab 02/02/21 tablet promethazine 25 mg rectal 25 mg TN Q6H PRN #12 ea 02/02/21 suppository haloperidol 2 mg tablet 2 mg PO DAILY PRN #10 tab 04/25/21 metoclopramide HCl 10 mg tablet 10 mg PO Q6H PRN #20 tab 04/25/21 pantoprazole 40 mg tablet,delayed 40 mg PO DAILY #14 tab 04/25/21 release (Protonix) promethazine 25 mg rectal 25 mg TN Q6H PRN #12 ea 04/25/21 suppository ondansetron 4 mg disintegrating 4 mg PO Q6H PRN #14 tab 10/26/21 tablet promethazine 25 mg rectal 25 mg TN Q4-6H PRN #12 ea 10/26/21 suppository Allergies Allergy/AdvReac Type Severity Reaction Status Date / Time No Known Drug Allergies Allergy Verified 09/10/21 14:49 Review of Systems <Dona Arias MD - Last Filed: 10/27/21 08:07> Review of Systems Narrative: Remainder of complete review of systems is otherwise unremarkable except for that included in the HPI. Patient History <Dona Arias MD - Last Filed: 10/27/21 08:07> Medical History (Updated 10/27/21 @ 08:07 by Dona Arias MD) Cannabinoid hyperemesis syndrome Coronary artery disease Diabetes Gastroesophageal reflux disease Hypertension Surgical History No pertinent past surgical history Social History Smoking Status: Current every day smoker Smoking Status: Current every day smoker alcohol intake frequency: other Substance Use Type: marijuana Exam <Dona Arias MD - Last Filed: 10/27/21 08:07> Narrative Exam Narrative: General: Moderately ill-appearing with violent retching Able to give a complete and coherent history. Well-nourished well-developed HEENT: Moist mucous membranes, normal sclera with reactive pupils, Neck: supple Respiratory: Lungs are clear to auscultation, no wheezing no rales no rhonchi. Full and symmetrical air movement Cardiac: Tachycardic but Regular rate and rhythm no murmurs no bruits Abdomen: Soft, mild diffuse tenderness with no rebound or guarding, bowel tones, no flank pain Skin: Somewhat pale but otherwise Warm and dry, no rashes Neurologic: Grossly neurologically intact with no obvious asymmetries or abnormalities Extremities: No trauma, well perfused Psych: Cooperative, slightly pressured speech with appropriate insight and affect Initial Vital Signs Initial Vital Signs: Vital Signs Temperature 98.3 F 10/26/21 14:23 Pulse Rate 97 H 10/26/21 14:23 Respiratory Rate 18 10/26/21 14:23 Blood Pressure 231/109 H 10/26/21 14:23 Pulse Oximetry 100 10/26/21 14:23 <Jorge Luis Shields DO - Last Filed: 10/27/21 17:57> Initial Vital Signs Initial Vital Signs: Vital Signs Temperature 98.3 F 10/26/21 14:23 Pulse Rate 97 H 10/26/21 14:23 Respiratory Rate 18 10/26/21 14:23 Blood Pressure 231/109 H 10/26/21 14:23 Pulse Oximetry 100 10/26/21 14:23 Course <Dona Arias MD - Last Filed: 10/27/21 08:07> Orders Ordered: Discontinued Medications Diphenhydramine HCl (Diphenhydramine 50 Mg/Ml Vial) 25 mg IV NOW ONE Stop: 10/26/21 15:05 Last Admin: 10/26/21 15:26 Dose: 25 mg Documented by: BLAINE Diphenhydramine HCl (Diphenhydramine 50 Mg/Ml Vial) 25 mg IV NOW ONE Stop: 10/26/21 17:53 Last Admin: 10/26/21 18:03 Dose: 25 mg Documented by: CHING Haloperidol (Haloperidol 5 Mg/Ml Vial) 5 mg IV NOW ONE Stop: 10/26/21 17:53 Last Admin: 10/26/21 18:03 Dose: 5 mg Documented by: CHING Sodium Chloride (Normal Saline 0.9%) 1,000 mls @ 1,000 mls/hr IV BOLUS ONE Stop: 10/26/21 16:03 Last Infusion: 10/26/21 16:12 Dose: 0 mls/hr Documented by: Admin: 10/26/21 15:24 Dose: 1,000 mls/hr Documented by: BLAINE Sodium Chloride (Normal Saline 0.9%) 1,000 mls @ 1,000 mls/hr IV BOLUS ONE Stop: 10/26/21 16:04 Last Infusion: 10/26/21 17:38 Dose: 0 mls/hr Documented by: Admin: 10/26/21 16:17 Dose: 1,000 mls/hr Documented by: BLAINE Labetalol HCl (Labetalol 20 Mg/4 Ml Syringe) 20 mg IV NOW ONE Stop: 10/26/21 15:05 Last Admin: 10/26/21 15:28 Dose: 20 mg Documented by: BLAINE Labetalol HCl (Labetalol 20 Mg/4 Ml Syringe) 20 mg IV NOW ONE Stop: 10/26/21 17:53 Last Admin: 10/26/21 18:03 Dose: 20 mg Documented by: CHING Losartan Potassium (Losartan 50 Mg Tablet) 100 mg PO NOW ONE Stop: 10/26/21 17:37 Last Admin: 10/26/21 18:03 Dose: Not Given Documented by: CHING Metoclopramide HCl (Metoclopramide 10 Mg/2 Ml Inj) 10 mg IV NOW ONE Stop: 10/26/21 15:05 Last Admin: 10/26/21 15:25 Dose: 10 mg Documented by: BLAINE Ondansetron HCl (Ondansetron 4 Mg/2 Ml Inj) 4 mg IV NOW ONE Stop: 10/26/21 14:33 Last Admin: 10/26/21 14:41 Dose: 4 mg Documented by: BLAINE Vital Signs Vital signs: Vital Signs - 8 hr 10/26/21 16:00 10/26/21 16:01 10/26/21 16:10 Pulse Rate 83 84 82 Respiratory Rate 19 21 Blood Pressure 211/119 H 211/119 H Pulse Oximetry 94 94 10/26/21 16:15 10/26/21 16:30 10/26/21 16:45 Pulse Rate 86 93 H 88 Respiratory Rate 19 26 H 17 Blood Pressure 182/77 H 208/95 H 178/62 H Pulse Oximetry 99 98 100 10/26/21 17:00 10/26/21 17:34 10/26/21 17:59 Pulse Rate 95 H 89 91 H Respiratory Rate 22 21 Blood Pressure 201/94 H Pulse Oximetry 99 99 98 10/26/21 18:00 10/26/21 18:01 10/26/21 18:03 Pulse Rate 94 H 93 H 92 H Respiratory Rate 19 13 Blood Pressure 233/104 H 233/104 H Pulse Oximetry 98 98 10/26/21 18:15 10/26/21 18:30 10/26/21 18:31 Pulse Rate 85 86 87 Respiratory Rate 12 0 L 5 L Blood Pressure 185/85 H 214/96 H Pulse Oximetry 93 88 L 87 L 10/26/21 18:45 10/26/21 19:00 10/26/21 19:15 Pulse Rate 85 88 85 Respiratory Rate 26 H 23 19 Blood Pressure 220/101 H 197/96 H 192/89 H Pulse Oximetry 88 L 90 L 91 10/26/21 19:30 10/26/21 19:31 10/26/21 19:45 Pulse Rate 81 81 89 Respiratory Rate Blood Pressure 129/60 127/60 Pulse Oximetry 92 92 89 L 10/26/21 20:00 10/26/21 20:01 10/26/21 20:15 Pulse Rate 93 H 98 H 98 H Respiratory Rate Blood Pressure 122/57 L 122/58 L 123/55 L Pulse Oximetry 89 L 92 96 <Jorge Luis Shields DO - Last Filed: 10/27/21 17:57> Orders Ordered: Discontinued Medications Diphenhydramine HCl (Diphenhydramine 50 Mg/Ml Vial) 25 mg IV NOW ONE Stop: 10/26/21 15:05 Last Admin: 10/26/21 15:26 Dose: 25 mg Documented by: BLAINE Diphenhydramine HCl (Diphenhydramine 50 Mg/Ml Vial) 25 mg IV NOW ONE Stop: 10/26/21 17:53 Last Admin: 10/26/21 18:03 Dose: 25 mg Documented by: CHING Haloperidol (Haloperidol 5 Mg/Ml Vial) 5 mg IV NOW ONE Stop: 10/26/21 17:53 Last Admin: 10/26/21 18:03 Dose: 5 mg Documented by: CHING Sodium Chloride (Normal Saline 0.9%) 1,000 mls @ 1,000 mls/hr IV BOLUS ONE Stop: 10/26/21 16:03 Last Infusion: 10/26/21 16:12 Dose: 0 mls/hr Documented by: Admin: 10/26/21 15:24 Dose: 1,000 mls/hr Documented by: BLAINE Sodium Chloride (Normal Saline 0.9%) 1,000 mls @ 1,000 mls/hr IV BOLUS ONE Stop: 10/26/21 16:04 Last Infusion: 10/26/21 17:38 Dose: 0 mls/hr Documented by: Admin: 10/26/21 16:17 Dose: 1,000 mls/hr Documented by: BLAINE Labetalol HCl (Labetalol 20 Mg/4 Ml Syringe) 20 mg IV NOW ONE Stop: 10/26/21 15:05 Last Admin: 10/26/21 15:28 Dose: 20 mg Documented by: BLAINE Labetalol HCl (Labetalol 20 Mg/4 Ml Syringe) 20 mg IV NOW ONE Stop: 10/26/21 17:53 Last Admin: 10/26/21 18:03 Dose: 20 mg Documented by: CHING Losartan Potassium (Losartan 50 Mg Tablet) 100 mg PO NOW ONE Stop: 10/26/21 17:37 Last Admin: 10/26/21 18:03 Dose: Not Given Documented by: CHING Metoclopramide HCl (Metoclopramide 10 Mg/2 Ml Inj) 10 mg IV NOW ONE Stop: 10/26/21 15:05 Last Admin: 10/26/21 15:25 Dose: 10 mg Documented by: BLAINE Ondansetron HCl (Ondansetron 4 Mg/2 Ml Inj) 4 mg IV NOW ONE Stop: 10/26/21 14:33 Last Admin: 10/26/21 14:41 Dose: 4 mg Documented by: BLAINE Vital Signs Vital signs: Vital Signs - 8 hr 10/26/21 16:00 10/26/21 16:01 10/26/21 16:10 Pulse Rate 83 84 82 Respiratory Rate 19 21 Blood Pressure 211/119 H 211/119 H Pulse Oximetry 94 94 10/26/21 16:15 10/26/21 16:30 10/26/21 16:45 Pulse Rate 86 93 H 88 Respiratory Rate 19 26 H 17 Blood Pressure 182/77 H 208/95 H 178/62 H Pulse Oximetry 99 98 100 10/26/21 17:00 10/26/21 17:34 10/26/21 17:59 Pulse Rate 95 H 89 91 H Respiratory Rate 22 21 Blood Pressure 201/94 H Pulse Oximetry 99 99 98 10/26/21 18:00 10/26/21 18:01 10/26/21 18:03 Pulse Rate 94 H 93 H 92 H Respiratory Rate 19 13 Blood Pressure 233/104 H 233/104 H Pulse Oximetry 98 98 10/26/21 18:15 10/26/21 18:30 10/26/21 18:31 Pulse Rate 85 86 87 Respiratory Rate 12 0 L 5 L Blood Pressure 185/85 H 214/96 H Pulse Oximetry 93 88 L 87 L 10/26/21 18:45 10/26/21 19:00 10/26/21 19:15 Pulse Rate 85 88 85 Respiratory Rate 26 H 23 19 Blood Pressure 220/101 H 197/96 H 192/89 H Pulse Oximetry 88 L 90 L 91 10/26/21 19:30 10/26/21 19:31 10/26/21 19:45 Pulse Rate 81 81 89 Respiratory Rate Blood Pressure 129/60 127/60 Pulse Oximetry 92 92 89 L 10/26/21 20:00 10/26/21 20:01 10/26/21 20:15 Pulse Rate 93 H 98 H 98 H Respiratory Rate Blood Pressure 122/57 L 122/58 L 123/55 L Pulse Oximetry 89 L 92 96 MDM - Nausea/Vomiting/Diarrhea <Dona Arias MD - Last Filed: 10/27/21 08:07> Lab Data Result diagrams: 10/26/21 14:38 10/26/21 14:38 Labs: Lab Results 10/26/21 10/26/21 10/26/21 Range/Units 14:35 14:38 14:38 WBC 13.8 H (4.5-11.0) X10^3/uL RBC 5.07 (4.5-5.9) X10^6/uL Hgb 15.1 (13.5-17.5) g/dL Hct 44.1 (41-53) % MCV 86.9 (80-100) fL MCH 29.8 (26-34) PG MCHC 34.2 (30-36) % RDW 14.0 (11.6-14.8) % Plt Count 339 (150-400) X10^3/uL Neut % (Auto) 81.3 H (50-75) % Lymph % (Auto) 11.8 L (25-40) % [place] % (Auto) 5.1 (3-14) % Eos % (Auto) 1.0 L (2-4) % Baso % (Auto) 0.8 (0-2) % Neut # (Auto) 50153 H (0904-0656) /uL Lymph # (Auto) 1600 (7155-3123) /uL [place] # (Auto) 700 (0-900) /uL Eos # (Auto) 100 (0-450) /uL Baso # (Auto) 100 (0-100) /uL PT 11.5 (10.1-12.7) SECONDS INR 1.0 (0.9-1.3) APTT 28 (26.4-36.2) SECONDS Sodium (137-145) mmol/L Potassium (3.4-5.1) mmol/L Chloride (98-107) mmol/L Carbon Dioxide (22-32) mmol/L BUN (9-20) mg/dL Creatinine (0.66-1.25) mg/dL Estimated GFR (>60) mL/min BUN/Creatinine Ratio (6-22) Glucose (80-110) mg/dL Calcium (8.4-10.2) mg/dL Total Bilirubin (0.2-1.3) mg/dL AST (17-59) IU/L ALT (<50) IU/L Alkaline Phosphatase (38-126) U/L Total Creatine Kinase (55-170) U/L CK-MB (CK-2) (<2.37) ng/mL CK-MB (CK-2) Rel Index (1.5-5.0) % Troponin I (0.01-0.034) ng/mL Total Protein (6.3-8.2) g/dL Albumin (3.5-5.0) g/dL Globulin (1.7-4.1) g/dL Albumin/Globulin Ratio (1.0-2.8) Lipase (23-300) U/L Urine RBC (0-5/HPF) Urine WBC (0-5/HPF) Ur Squamous Epith Cells (0-5/HPF) Urine Bacteria (None) Ur Culture Indicated? SARS-CoV-2 (PCR) Negative (Negative) 10/26/21 10/26/21 Range/Units 14:38 16:38 WBC (4.5-11.0) X10^3/uL RBC (4.5-5.9) X10^6/uL Hgb (13.5-17.5) g/dL Hct (41-53) % MCV (80-100) fL MCH (26-34) PG MCHC (30-36) % RDW (11.6-14.8) % Plt Count (150-400) X10^3/uL Neut % (Auto) (50-75) % Lymph % (Auto) (25-40) % [place] % (Auto) (3-14) % Eos % (Auto) (2-4) % Baso % (Auto) (0-2) % Neut # (Auto) (4175-0847) /uL Lymph # (Auto) (9617-8894) /uL [place] # (Auto) (0-900) /uL Eos # (Auto) (0-450) /uL Baso # (Auto) (0-100) /uL PT (10.1-12.7) SECONDS INR (0.9-1.3) APTT (26.4-36.2) SECONDS Sodium 138 (137-145) mmol/L Potassium 3.5 (3.4-5.1) mmol/L Chloride 100 (98-107) mmol/L Carbon Dioxide 25 (22-32) mmol/L BUN 11 (9-20) mg/dL Creatinine 0.78 (0.66-1.25) mg/dL Estimated GFR > 60.0 (>60) mL/min BUN/Creatinine Ratio 14.1 (6-22) Glucose 244 H (80-110) mg/dL Calcium 10.0 (8.4-10.2) mg/dL Total Bilirubin 0.8 (0.2-1.3) mg/dL AST 32 (17-59) IU/L ALT 27 (<50) IU/L Alkaline Phosphatase 73 (38-126) U/L Total Creatine Kinase 180 H (55-170) U/L CK-MB (CK-2) 2.40 H (<2.37) ng/mL CK-MB (CK-2) Rel Index 1.3 L (1.5-5.0) % Troponin I < 0.012 (0.01-0.034) ng/mL Total Protein 8.2 (6.3-8.2) g/dL Albumin 5.0 (3.5-5.0) g/dL Globulin 3.2 (1.7-4.1) g/dL Albumin/Globulin Ratio 1.6 (1.0-2.8) Lipase 304 H (23-300) U/L Urine RBC 1-5/hpf (0-5/HPF) Urine WBC 1-5/hpf (0-5/HPF) Ur Squamous Epith Cells 0-1 /hpf (0-5/HPF) Urine Bacteria None seen (None) Ur Culture Indicated? Cult not indicated SARS-CoV-2 (PCR) (Negative) Point of Care Testing Glucose POC 241 Urine Dip Bedside Urine Glucose 1000 mg/dl Bedside Urine Bilirubin - Negative Bedside Urine Ketone +++ 80 Urine Specific [place] 1.015 Bedside Urine Occult Blood - Negative Bedside Urine pH 7.5 Bedside Urine Protein +/- 15 Bedside Urine Urobilinogen - Negative Bedside Urine Nitrite - Negative Bedside Urine Leukocytes - Negative Esterase ECG Data Interpretation: Sinus rhythm at a rate of 92 Normal axis and intervals No acute ischemic changes MDM Narrative Medical decision making narrative: 61-year-old gentleman with known prior history of gastroparesis likely combination of cannabinoid and diabetic. With the hot baths is not working this morning the canal middle aged component is probably less important today. Given 2 L of fluid, IV Reglan seem to be doing better but with oral challenge began vomiting again. He was then given IV Benadryl and Haldol with which he was able to sleep for a couple of hours and when he woke was doing much better. There is no evidence of infection, bowel obstruction, acute coronary syndrome or other etiology. Care is turned over to Dr. Shields at change of shift with expectation that he will be able to go home the next few hours. Dr shields: Received turned over. Reviewed patient's labs. Performed my own independent exam. Patient has not vomited since he received Haldol. Has been sleeping. His blood pressure has improved. He states he does have rectal Phenergan and also ODT Zofran at home he does feel like these medications may be old. He is a insulin-dependent diabetic. States he has had evaluation in the past for gastroparesis but does not have the results of these tests. Patient is hydrated. Will discharge home with a new prescription for rectal Phenergan and Zofran and instructions to contact his primary provider and also a GI provider for follow-up. No further workup needed in the emergency department. He expressed understanding and agreement. <Jorge Luis Shields, - Last Filed: 10/27/21 17:57> Lab Data Labs: Lab Results 10/26/21 10/26/21 10/26/21 Range/Units 14:35 14:38 14:38 WBC 13.8 H (4.5-11.0) X10^3/uL RBC 5.07 (4.5-5.9) X10^6/uL Hgb 15.1 (13.5-17.5) g/dL Hct 44.1 (41-53) % MCV 86.9 (80-100) fL MCH 29.8 (26-34) PG MCHC 34.2 (30-36) % RDW 14.0 (11.6-14.8) % Plt Count 339 (150-400) X10^3/uL Neut % (Auto) 81.3 H (50-75) % Lymph % (Auto) 11.8 L (25-40) % [place] % (Auto) 5.1 (3-14) % Eos % (Auto) 1.0 L (2-4) % Baso % (Auto) 0.8 (0-2) % Neut # (Auto) 85356 H (9319-7889) /uL Lymph # (Auto) 1600 (8303-1167) /uL [place] # (Auto) 700 (0-900) /uL Eos # (Auto) 100 (0-450) /uL Baso # (Auto) 100 (0-100) /uL PT 11.5 (10.1-12.7) SECONDS INR 1.0 (0.9-1.3) APTT 28 (26.4-36.2) SECONDS Sodium (137-145) mmol/L Potassium (3.4-5.1) mmol/L Chloride (98-107) mmol/L Carbon Dioxide (22-32) mmol/L BUN (9-20) mg/dL Creatinine (0.66-1.25) mg/dL Estimated GFR (>60) mL/min BUN/Creatinine Ratio (6-22) Glucose (80-110) mg/dL Calcium (8.4-10.2) mg/dL Total Bilirubin (0.2-1.3) mg/dL AST (17-59) IU/L ALT (<50) IU/L Alkaline Phosphatase (38-126) U/L Total Creatine Kinase (55-170) U/L CK-MB (CK-2) (<2.37) ng/mL CK-MB (CK-2) Rel Index (1.5-5.0) % Troponin I (0.01-0.034) ng/mL Total Protein (6.3-8.2) g/dL Albumin (3.5-5.0) g/dL Globulin (1.7-4.1) g/dL Albumin/Globulin Ratio (1.0-2.8) Lipase (23-300) U/L Urine RBC (0-5/HPF) Urine WBC (0-5/HPF) Ur Squamous Epith Cells (0-5/HPF) Urine Bacteria (None) Ur Culture Indicated? SARS-CoV-2 (PCR) Negative (Negative) 10/26/21 10/26/21 Range/Units 14:38 16:38 WBC (4.5-11.0) X10^3/uL RBC (4.5-5.9) X10^6/uL Hgb (13.5-17.5) g/dL Hct (41-53) % MCV (80-100) fL MCH (26-34) PG MCHC (30-36) % RDW (11.6-14.8) % Plt Count (150-400) X10^3/uL Neut % (Auto) (50-75) % Lymph % (Auto) (25-40) % [place] % (Auto) (3-14) % Eos % (Auto) (2-4) % Baso % (Auto) (0-2) % Neut # (Auto) (2744-2678) /uL Lymph # (Auto) (8045-5585) /uL [place] # (Auto) (0-900) /uL Eos # (Auto) (0-450) /uL Baso # (Auto) (0-100) /uL PT (10.1-12.7) SECONDS INR (0.9-1.3) APTT (26.4-36.2) SECONDS Sodium 138 (137-145) mmol/L Potassium 3.5 (3.4-5.1) mmol/L Chloride 100 (98-107) mmol/L Carbon Dioxide 25 (22-32) mmol/L BUN 11 (9-20) mg/dL Creatinine 0.78 (0.66-1.25) mg/dL Estimated GFR > 60.0 (>60) mL/min BUN/Creatinine Ratio 14.1 (6-22) Glucose 244 H (80-110) mg/dL Calcium 10.0 (8.4-10.2) mg/dL Total Bilirubin 0.8 (0.2-1.3) mg/dL AST 32 (17-59) IU/L ALT 27 (<50) IU/L Alkaline Phosphatase 73 (38-126) U/L Total Creatine Kinase 180 H (55-170) U/L CK-MB (CK-2) 2.40 H (<2.37) ng/mL CK-MB (CK-2) Rel Index 1.3 L (1.5-5.0) % Troponin I < 0.012 (0.01-0.034) ng/mL Total Protein 8.2 (6.3-8.2) g/dL Albumin 5.0 (3.5-5.0) g/dL Globulin 3.2 (1.7-4.1) g/dL Albumin/Globulin Ratio 1.6 (1.0-2.8) Lipase 304 H (23-300) U/L Urine RBC 1-5/hpf (0-5/HPF) Urine WBC 1-5/hpf (0-5/HPF) Ur Squamous Epith Cells 0-1 /hpf (0-5/HPF) Urine Bacteria None seen (None) Ur Culture Indicated? Cult not indicated SARS-CoV-2 (PCR) (Negative) Point of Care Testing Glucose POC 241 Urine Dip Bedside Urine Glucose 1000 mg/dl Bedside Urine Bilirubin - Negative Bedside Urine Ketone +++ 80 Urine Specific [place] 1.015 Bedside Urine Occult Blood - Negative Bedside Urine pH 7.5 Bedside Urine Protein +/- 15 Bedside Urine Urobilinogen - Negative Bedside Urine Nitrite - Negative Bedside Urine Leukocytes - Negative Esterase MDM Narrative Medical decision making narrative: Dr shields: Received turned over. Reviewed patient's labs. Performed my own independent exam. Patient has not vomited since he received Haldol. Has been sleeping. His blood pressure has improved. He states he does have rectal Phenergan and also ODT Zofran at home he does feel like these medications may be old. He is a insulin-dependent diabetic. States he has had evaluation in the past for gastroparesis but does not have the results of these tests. Patient is hydrated. Will discharge home with a new prescription for rectal Phenergan and Zofran and instructions to contact his primary provider and also a GI provider for follow-up. No further workup needed in the emergency department. He expressed understanding and agreement. Discharge Plan Departure Patient Disposition: Home Clinical Impression: Hyperemesis, Cannabinoid hyperemesis syndrome, DM gastroparesis Instructions: DI for Vomiting -- Adult Activity Restrictions/Additional Instructions: Continue to take all of your medications as directed. Keep all of your scheduled medical appointments. You do need to reschedule having the upper endoscopy performed by the tunnel miner. Return to the emergency department for any worsening symptoms. Prescriptions: New ondansetron 4 mg tablet,disintegrating 4 mg PO Q6H PRN (Reason: nausea and vomiting) Qty: 14 0RF promethazine 25 mg suppository 25 mg TN Q4-6H PRN (Reason: nausea and vomiting) Qty: 12 0RF No Action aspirin 325 mg Tablet,Delayed Release (Dr/Ec) 325 mg PO DAILY Qty: 0 0RF nitroglycerin [Nitrostat] 0.4 MG tablet, sublingual 0.4 mg Sublingual SEE INSTRUCTIONS Qty: 2 PRNRF promethazine [Phenergan] 25 mg suppository 25 mg TN Q6H PRN (Reason: nausea and vomiting) Qty: 12 0RF ondansetron 4 mg tablet,disintegrating 4 mg PO Q8H PRN (Reason: nausea and vomiting) Qty: 20 0RF ondansetron 4 mg tablet,disintegrating 4 mg PO Q8H PRN (Reason: nausea and vomiting) Qty: 10 0RF promethazine 25 mg suppository 25 mg TN Q6H PRN (Reason: nausea and vomiting) Qty: 12 0RF pantoprazole [Protonix] 40 mg tablet,delayed release (DR/EC) 40 mg PO DAILY Qty: 14 0RF metoclopramide HCl 10 mg tablet 10 mg PO Q6H PRN (Reason: nausea and vomiting) Qty: 20 0RF promethazine 25 mg suppository 25 mg TN Q6H PRN (Reason: nausea and vomiting) Qty: 12 0RF haloperidol 2 mg tablet 2 mg PO DAILY PRN (Reason: nausea and vomiting) Qty: 10 0RF atorvastatin 40 mg tablet 1 tab PO QPM 0RF glyburide 5 mg tablet 2 tab PO BID 0RF metformin 1,000 mg tablet 1 tab PO BID 0RF insulin NPH isoph U-100 human [Humulin N NPH U-100 Insulin] 100 unit/mL suspension 36 units subcut BID 0RF omeprazole 20 mg capsule,delayed release(DR/EC) 1 cap PO DAILY 0RF metoprolol succinate 25 mg tablet extended release 24 hr 1 tab PO DAILY 0RF losartan 100 mg tablet 1 tab PO DAILY 0RF nitroglycerin 0.2 mg/hr patch 24 hour 1 patch Topical DAILY 0RF Syringes 1 syr miscellaneous DIRECTED 0RF ondansetron [Zofran ODT] 4 mg tablet,disintegrating 4 mg PO Q6-8H PRN (Reason: nausea and vomiting) Qty: 14 0RF pantoprazole [Protonix] 40 mg tablet,delayed release (DR/EC) 40 mg PO QAM Qty: 30 0RF ondansetron 4 mg tablet,disintegrating 4 mg PO Q6-8H PRN (Reason: nausea and vomiting) Qty: 20 0RF
[2021-10-26 17:41] LABS: Bacteria Urine None Seen; Culture Indicated Urine Cult Not Indicated; RBC Urine 1-5/HPF (0-5/HPF); Squamous Epithelial Cell Urine 0-1 /HPF (0-5/HPF); WBC Urine 1-5/HPF (0-5/HPF)
[2021-10-26] MEDS: HALOPERIDOL 5 MG/ML VIAL IV (18:03)
== END 2021-10-26 20:35 | disposition home or self-care (01) ==
PROVIDERS: Emergency Medicine; Emergency Provider Emergency Medicine
DX: R11.2 Nausea with vomiting, unspecified (principal); E11.43 Type 2 diabetes mellitus with diabetic autonomic (poly)neuropathy; E11.65 Type 2 diabetes mellitus with hyperglycemia; K31.84 Gastroparesis; R00.0 Tachycardia, unspecified; Z79.84 Long term (current) use of oral hypoglycemic drugs; Z79.4 Long term (current) use of insulin; Z20.822 Contact with and (suspected) exposure to COVID-19
CPT/HCPCS: 36415; 80053; 81003; 81015; 82550; 82553; 82962; 83690; 84484; 85025; 85610; 85730; 87635; 93005; 96361; 96374; 96375; 96376; 99284; C9803; J1200; J1630; J2405; J2765

== ENCOUNTER 2021-10-29 16:40 | Emergency (ER) | payer OTHER, MEDICAID, SELFPAY ==
[2021-10-29] VITALS (7 sets, daily range): BP systolic 114–125; BP diastolic 63–74; PULSE 86–104; O2SAT 96–100
[2021-10-29 21:55] LABS: Add Manual Diff / Slide Review NO; Basophils Absolute Auto 100 /uL (0-100); Basophils Percent Auto 0.7 % (0-2); Eosinophils Absolute Auto 0 /uL (0-450); Eosinophils Percent Auto 0.1 % (2-4); Hemoglobin 16.6 g/dL (13.5-17.5); Lymphocytes Absolute Auto 2700 /uL (1100-4500); Lymphocytes Percent Auto 17.1 % (25-40); Mean Corpuscular HGB Conc 33.9 % (30-36); Mean Corpuscular Hemoglobin 29.3 PG (26-34); Mean Corpuscular Volume 86.4 fL (80-100); Monocytes Absolute Auto 1600 /uL (0-900); Monocytes Percent Auto 10.2 % (3-14); Neutrophils Absolute Auto 11500 /uL (1500-7000); Neutrophils Percent Auto 71.9 % (50-75); Platelet Count 354 X10^3/uL (150-400); Red Blood Cell Count 5.67 X10^6/uL (4.5-5.9); Red Cell Distribution Width 14.4 % (11.6-14.8)
[2021-10-29] MEDS: ONDANSETRON 4 MG/2 ML INJ IV (21:59)
[2021-10-29] MEDS: PANTOPRAZOLE 40 MG VIAL IV (21:59)
[2021-10-29] MEDS: LORazepam 2 MG/ML INJ 1 MG IV (21:59)
[2021-10-29] MEDS: SODIUM CHLORIDE 0.9% 1,000 ML 1000 ML IV (21:59)
[2021-10-29 22:00] LABS: Lactate (Lactic Acid) 1.8 mmol/L (0.7-2.1)
[2021-10-29 22:02] LABS: Alanine Aminotransferase 34 IU/L (<50); Albumin Globulin Ratio 1.3 (1.0-2.8); Alkaline Phosphatase 55 U/L (38-126); Aspartate Aminotransferase 57 IU/L (17-59); BUN Creatinine Ratio 26.7 (6-22); Bilirubin Total 1.3 mg/dL (0.2-1.3); Blood Urea Nitrogen 24 mg/dL (9-20); Calcium 10.8 mg/dL (8.4-10.2); Carbon Dioxide 27 mmol/L (22-32); Chloride 93 mmol/L (98-107); Creatine Kinase 595 U/L (55-170); Estimated Glomerular Filt Rate > 60.0 mL/min (>60); Globulin 3.9 g/dL (1.7-4.1); Glucose 147 mg/dL (80-110); HEMOLYSIS < 15 (0-50); Potassium 3.2 mmol/L (3.4-5.1); Sodium 135 mmol/L (137-145); Total Protein 8.9 g/dL (6.3-8.2)
[2021-10-29 22:04] LABS: Ketones (Beta-Hydroxybutyrate) 1.28 mmol/L (<0.27)
[2021-10-29 22:16] LABS: Troponin I < 0.012 ng/mL (0.01-0.034)
[2021-10-29 22:20] LABS: Procalcitonin 0.05 ng/mL (<0.5)
--- NOTE | 2021-10-29 22:20 | PC.NURSE ---
Pt noted to desat, states he was resting, states he has been f/u outpatient with a sleep study and may need cpap at night. 1L oxygen placed while he rests.
[2021-10-29 22:31] LABS: CKMB % Relative Index 0.5 % (1.5-5.0); Creatine Kinase MB 3.16 ng/mL (<2.37)
[2021-10-29 22:51] LABS: PCO2 VBG 42.9 mmHg (45-50)
[2021-10-29 22:52] LABS: HCO3 VBG 28 mmol/L (23-28); Oxygen Saturation VBG 81 % (70-75); PO2 VBG 45 mmHg (35-45); Total CO2 VBG 29 mmol/L (24-29); pH VBG 7.42 (7.33-7.43)
--- NOTE | 2021-10-29 22:58 | ED_ITS ---
HPI - Abdominal Pain General Chief Complaint: Abdominal Pain Stated Complaint: Vomiting Time Seen by Provider: 10/29/21 20:55 Source: patient Mode of arrival: Ambulatory History of Present Illness HPI narrative: Patient is a 61-year-old male with history of insulin-dependent diabetes, hyper emesis with gastroparesis and daily cannabinoid use, presenting for the 2nd time this week with nausea and vomiting. He keep a diary of all of his symptoms. He does have intermittent nausea and vomiting. Today it seems to be getting worse. Although in the nausea has subsided while in the waiting room but has started vomiting now back in the ED. he overall is not having severe stomach pain. He had a gastric emptying study last week tried calling his PCP for results but does not yet have that. Related Data Home Medications Medication Instructions Recorded Confirmed aspirin 325 mg tablet,delayed 325 mg PO DAILY #0 02/03/12 08/17/18 release Syringes 1 syr MISCELLANEOUS DIRECTED 08/17/18 08/17/18 atorvastatin 40 mg tablet 1 tab PO QPM 08/17/18 08/17/18 glyburide 5 mg tablet 2 tab PO BID 08/17/18 08/17/18 insulin NPH isoph U-100 human 100 36 units SUBCUT BID 08/17/18 08/17/18 unit/mL subcutaneous suspension losartan 100 mg tablet 1 tab PO DAILY 08/17/18 08/17/18 metformin 1,000 mg tablet 1 tab PO BID 08/17/18 08/17/18 metoprolol succinate 25 mg 1 tab PO DAILY 08/17/18 08/17/18 tablet,extended release 24 hr nitroglycerin 0.2 mg/hr 1 patch TOPICAL DAILY 08/17/18 08/17/18 transdermal 24 hour patch omeprazole 20 mg capsule,delayed 1 cap PO DAILY 08/17/18 08/17/18 release Previous Rx's Medication Instructions Recorded nitroglycerin 0.4 mg sublingual 0.4 mg SUBLINGUAL SEE INSTRUCTIONS 04/02/13 tablet (Nitrostat) #2 bot ondansetron 4 mg disintegrating 4 mg PO Q6-8H PRN #14 tab 08/17/18 tablet (Zofran ODT) ondansetron 4 mg disintegrating 4 mg PO Q8H PRN #20 tab 04/15/19 tablet promethazine 25 mg rectal 25 mg MA Q6H PRN #12 each 04/15/19 suppository (Phenergan) ondansetron 4 mg disintegrating 4 mg PO Q6-8H PRN #20 tab 12/26/19 tablet pantoprazole 40 mg tablet,delayed 40 mg PO QAM #30 tab 12/26/19 release (Protonix) ondansetron 4 mg disintegrating 4 mg PO Q8H PRN #10 tab 02/02/21 tablet promethazine 25 mg rectal 25 mg MA Q6H PRN #12 ea 02/02/21 suppository haloperidol 2 mg tablet 2 mg PO DAILY PRN #10 tab 04/25/21 metoclopramide HCl 10 mg tablet 10 mg PO Q6H PRN #20 tab 04/25/21 pantoprazole 40 mg tablet,delayed 40 mg PO DAILY #14 tab 04/25/21 release (Protonix) promethazine 25 mg rectal 25 mg MA Q6H PRN #12 ea 04/25/21 suppository ondansetron 4 mg disintegrating 4 mg PO Q6H PRN #14 tab 10/26/21 tablet promethazine 25 mg rectal 25 mg MA Q4-6H PRN #12 ea 10/26/21 suppository Allergies Allergy/AdvReac Type Severity Reaction Status Date / Time No Known Drug Allergies Allergy Verified 09/10/21 14:49 Review of Systems Review of Systems Narrative: GENERAL: Denies chills, fatigue, malaise, fever, sweats, travel HEENT: Denies sinus pain, ear pain, sore throat, difficulty swallowing, neck pain RESPIRATORY: Denies dyspnea, cough, wheezing, hemoptysis, sputum. CARDIOVASCULAR: Denies chest pain, palpitations, orthopnea, edema GASTROINTESTINAL: See HPI : Denies dysuria, frequency, incontinence, hematuria, urinary retention, flank pain. MUSCULOSKELETAL: Denies weakness, joint pain, or bony pain SKIN: No rash, no erythema, no pruritus NEUROLOGIC: Denies weakness, dizziness, headache, numbness, change in speech, confusion PSYCHIATRIC: No concerning psychosocial issues. 12 point review of systems is negative except for those stated above and HPI Patient History Medical History (Updated 10/30/21 @ 03:11 by Nohemi Danielson DO) Cannabinoid hyperemesis syndrome Coronary artery disease Diabetes Gastroesophageal reflux disease Hypertension Surgical History No pertinent past surgical history Social History Smoking Status: Current every day smoker Smoking Status: Current every day smoker alcohol intake frequency: other Substance Use Type: marijuana Exam Initial Vital Signs Initial Vital Signs: Vital Signs Pulse Rate 104 H 10/29/21 21:16 Pulse Oximetry 100 10/29/21 21:16 GENERAL: 61-year-old male now awake alert overall appears well HEENT: Head atraumatic,EOMI, pupils reactive, face symmetric, moist mucous membranes CARDIOVASCULAR: Regular rate and rhythm without murmurs, rubs or gallops. RESPIRATORY: Breath sounds equal bilaterally, no wheezes rales or rhonchi. ABDOMEN: Soft, soft nontender nondistended EXTREMITIES: Normal range of motion, no clubbing or edema. SKIN: Warm, dry, no laceration, no petechiae, no rashes or lesions. Course Orders Ordered: ED Orders 10/29/21 22:42 Venous Blood Gas Stat Discontinued Medications Sodium Chloride (Normal Saline 0.9%) 1,000 mls @ 1,000 mls/hr IV BOLUS ONE Stop: 10/29/21 22:24 Last Infusion: 10/29/21 23:34 Dose: 0 mls/hr Documented by: Admin: 10/29/21 21:59 Dose: 1,000 mls/hr Documented by: KRYSTLE Lorazepam (Lorazepam 2 Mg/Ml Inj) 1 mg IV NOW ONE Stop: 10/29/21 21:28 Last Admin: 10/29/21 21:59 Dose: 1 mg Documented by: KRYSTLE Ondansetron HCl (Ondansetron 4 Mg/2 Ml Inj) 4 mg IV NOW ONE Stop: 10/29/21 21:26 Last Admin: 10/29/21 21:59 Dose: 4 mg Documented by: KRYSTLE Pantoprazole Sodium (Pantoprazole 40 Mg Vial) 40 mg IV NOW ONE Stop: 10/29/21 21:26 Last Admin: 10/29/21 21:59 Dose: 40 mg Documented by: KRYSTLE Vital Signs Vital signs: Vital Signs - 8 hr 10/29/21 23:30 10/30/21 00:00 10/30/21 00:30 Pulse Rate 88 83 84 Respiratory Rate Blood Pressure 125/65 111/66 119/65 Pulse Oximetry 96 96 94 10/30/21 01:00 10/30/21 01:30 10/30/21 02:00 Pulse Rate 83 83 79 Respiratory Rate Blood Pressure 115/66 111/69 111/58 L Pulse Oximetry 95 95 95 10/30/21 02:30 10/30/21 03:00 10/30/21 03:30 Pulse Rate 81 79 80 Respiratory Rate Blood Pressure 109/69 149/83 H 141/81 H Pulse Oximetry 95 95 98 10/30/21 04:00 10/30/21 04:30 10/30/21 05:00 Pulse Rate 75 73 81 Respiratory Rate Blood Pressure 111/62 109/58 L 119/74 Pulse Oximetry 95 95 96 10/30/21 06:57 Pulse Rate 76 Respiratory Rate 18 Blood Pressure 121/71 Pulse Oximetry 98 MDM - Abdominal Pain Lab Data Result diagrams: 10/29/21 21:35 10/29/21 21:35 Labs: Lab Results 10/29/21 10/29/21 10/29/21 Range/Units 21:35 21:35 21:35 WBC 16.0 H (4.5-11.0) X10^3/uL RBC 5.67 (4.5-5.9) X10^6/uL Hgb 16.6 (13.5-17.5) g/dL Hct 49.0 (41-53) % MCV 86.4 (80-100) fL MCH 29.3 (26-34) PG MCHC 33.9 (30-36) % RDW 14.4 (11.6-14.8) % Plt Count 354 (150-400) X10^3/uL Neut % (Auto) 71.9 (50-75) % Lymph % (Auto) 17.1 L (25-40) % [place] % (Auto) 10.2 (3-14) % Eos % (Auto) 0.1 L (2-4) % Baso % (Auto) 0.7 (0-2) % Neut # (Auto) 39119 H (1206-2252) /uL Lymph # (Auto) 2700 (8063-8436) /uL [place] # (Auto) 1600 H (0-900) /uL Eos # (Auto) 0 (0-450) /uL Baso # (Auto) 100 (0-100) /uL VBG pH (7.33-7.43) VBG pCO2 (45-50) mmHg VBG pO2 (35-45) mmHg VBG HCO3 (23-28) mmol/L VBG Total CO2 (24-29) mmol/L VBG O2 Saturation (70-75) % VBG Base Excess (0-4) mmol/L Sodium 135 L (137-145) mmol/L Potassium 3.2 L (3.4-5.1) mmol/L Chloride 93 L (98-107) mmol/L Carbon Dioxide 27 (22-32) mmol/L BUN 24 H (9-20) mg/dL Creatinine 0.90 (0.66-1.25) mg/dL Estimated GFR > 60.0 (>60) mL/min BUN/Creatinine Ratio 26.7 H (6-22) Glucose 147 H (80-110) mg/dL Lactate 1.8 (0.7-2.1) mmol/L Calcium 10.8 H (8.4-10.2) mg/dL Total Bilirubin 1.3 (0.2-1.3) mg/dL AST 57 (17-59) IU/L ALT 34 (<50) IU/L Alkaline Phosphatase 55 (38-126) U/L Total Creatine Kinase (55-170) U/L CK-MB (CK-2) (<2.37) ng/mL CK-MB (CK-2) Rel Index (1.5-5.0) % Troponin I (0.01-0.034) ng/mL Total Protein 8.9 H (6.3-8.2) g/dL Albumin 5.0 (3.5-5.0) g/dL Globulin 3.9 (1.7-4.1) g/dL Albumin/Globulin Ratio 1.3 (1.0-2.8) Procalcitonin 0.05 (<0.5) ng/mL Ketones 1.28 H (<0.27) mmol/L 10/29/21 10/29/21 Range/Units 21:35 22:42 WBC (4.5-11.0) X10^3/uL RBC (4.5-5.9) X10^6/uL Hgb (13.5-17.5) g/dL Hct (41-53) % MCV (80-100) fL MCH (26-34) PG MCHC (30-36) % RDW (11.6-14.8) % Plt Count (150-400) X10^3/uL Neut % (Auto) (50-75) % Lymph % (Auto) (25-40) % [place] % (Auto) (3-14) % Eos % (Auto) (2-4) % Baso % (Auto) (0-2) % Neut # (Auto) (7847-5518) /uL Lymph # (Auto) (9086-5124) /uL [place] # (Auto) (0-900) /uL Eos # (Auto) (0-450) /uL Baso # (Auto) (0-100) /uL VBG pH 7.42 (7.33-7.43) VBG pCO2 42.9 L (45-50) mmHg VBG pO2 45 (35-45) mmHg VBG HCO3 28 (23-28) mmol/L VBG Total CO2 29 (24-29) mmol/L VBG O2 Saturation 81 H (70-75) % VBG Base Excess 3.0 (0-4) mmol/L Sodium (137-145) mmol/L Potassium (3.4-5.1) mmol/L Chloride (98-107) mmol/L Carbon Dioxide (22-32) mmol/L BUN (9-20) mg/dL Creatinine (0.66-1.25) mg/dL Estimated GFR (>60) mL/min BUN/Creatinine Ratio (6-22) Glucose (80-110) mg/dL Lactate (0.7-2.1) mmol/L Calcium (8.4-10.2) mg/dL Total Bilirubin (0.2-1.3) mg/dL AST (17-59) IU/L ALT (<50) IU/L Alkaline Phosphatase (38-126) U/L Total Creatine Kinase 595 H D (55-170) U/L CK-MB (CK-2) 3.16 H (<2.37) ng/mL CK-MB (CK-2) Rel Index 0.5 L (1.5-5.0) % Troponin I < 0.012 (0.01-0.034) ng/mL Total Protein (6.3-8.2) g/dL Albumin (3.5-5.0) g/dL Globulin (1.7-4.1) g/dL Albumin/Globulin Ratio (1.0-2.8) Procalcitonin (<0.5) ng/mL Ketones (<0.27) mmol/L ECG Data Interpretation: Normal sinus rhythm rate 84 MA interval 163 QRS [address] changes MDM Narrative Medical decision making narrative: Patient was actively vomiting in the emergency department. He was given Ativan Zofran and Protonix. Ativan seemed to knock him out for about 5hrs. I was unable to examine him until he awoke. Now is feeling significantly better he is able to tolerate fluids. He is unable to drive and leg dark and wanted to make sure that the medicine did not wear off. He has tolerated more fluids and continues to feel better. Discharge Plan Departure Patient Disposition: Home Clinical Impression: Hyperemesis, DM gastroparesis, Cannabinoid hyperemesis syndrome Instructions: DI for Vomiting -- Adult Activity Restrictions/Additional Instructions: *You have been diagnosed with vomiting *What to do: Please follow-up with your primary you do need to have an upper endoscopy. Increase fluids slowly *Continue to take medications as directed *Follow up with your primary care provider in 2-3 days or call [phone] *Return to ER if you should have increasing abdominal pain, persistent vomiting or any new, worsening or concerning symptoms Prescriptions: No Action aspirin 325 mg Tablet,Delayed Release (Dr/Ec) 325 mg PO DAILY Qty: 0 0RF nitroglycerin [Nitrostat] 0.4 MG tablet, sublingual 0.4 mg Sublingual SEE INSTRUCTIONS Qty: 2 PRNRF promethazine [Phenergan] 25 mg suppository 25 mg MA Q6H PRN (Reason: nausea and vomiting) Qty: 12 0RF ondansetron 4 mg tablet,disintegrating 4 mg PO Q8H PRN (Reason: nausea and vomiting) Qty: 20 0RF ondansetron 4 mg tablet,disintegrating 4 mg PO Q8H PRN (Reason: nausea and vomiting) Qty: 10 0RF promethazine 25 mg suppository 25 mg MA Q6H PRN (Reason: nausea and vomiting) Qty: 12 0RF pantoprazole [Protonix] 40 mg tablet,delayed release (DR/EC) 40 mg PO DAILY Qty: 14 0RF metoclopramide HCl 10 mg tablet 10 mg PO Q6H PRN (Reason: nausea and vomiting) Qty: 20 0RF promethazine 25 mg suppository 25 mg MA Q6H PRN (Reason: nausea and vomiting) Qty: 12 0RF haloperidol 2 mg tablet 2 mg PO DAILY PRN (Reason: nausea and vomiting) Qty: 10 0RF ondansetron 4 mg tablet,disintegrating 4 mg PO Q6H PRN (Reason: nausea and vomiting) Qty: 14 0RF promethazine 25 mg suppository 25 mg MA Q4-6H PRN (Reason: nausea and vomiting) Qty: 12 0RF atorvastatin 40 mg tablet 1 tab PO QPM 0RF glyburide 5 mg tablet 2 tab PO BID 0RF metformin 1,000 mg tablet 1 tab PO BID 0RF insulin NPH isoph U-100 human [Humulin N NPH U-100 Insulin] 100 unit/mL suspension 36 units subcut BID 0RF omeprazole 20 mg capsule,delayed release(DR/EC) 1 cap PO DAILY 0RF metoprolol succinate 25 mg tablet extended release 24 hr 1 tab PO DAILY 0RF losartan 100 mg tablet 1 tab PO DAILY 0RF nitroglycerin 0.2 mg/hr patch 24 hour 1 patch Topical DAILY 0RF Syringes 1 syr miscellaneous DIRECTED 0RF ondansetron [Zofran ODT] 4 mg tablet,disintegrating 4 mg PO Q6-8H PRN (Reason: nausea and vomiting) Qty: 14 0RF pantoprazole [Protonix] 40 mg tablet,delayed release (DR/EC) 40 mg PO QAM Qty: 30 0RF ondansetron 4 mg tablet,disintegrating 4 mg PO Q6-8H PRN (Reason: nausea and vomiting) Qty: 20 0RF
--- NOTE | 2021-10-29 23:05 | PC.NURSE ---
Pt in room with eyes closed, reports improvement in symptoms since medications, denies nausea/vomiting.
[2021-10-30] VITALS (12 sets, daily range): BP systolic 109–149; BP diastolic 58–83; PULSE 73–84; RESP 18; O2SAT 94–98
--- NOTE | 2021-10-30 06:59 | PC.NURSE ---
He was able to drink water and manuel alexa without vomiting.when discharged he was pleasant and thankfull.
== END 2021-10-30 06:58 | disposition home or self-care (01) ==
PROVIDERS: Emergency Provider Emergency Medicine
DX: E11.43 Type 2 diabetes mellitus with diabetic autonomic (poly)neuropathy (principal); K31.84 Gastroparesis; R11.2 Nausea with vomiting, unspecified; F17.200 Nicotine dependence, unspecified, uncomplicated; Z79.4 Long term (current) use of insulin
CPT/HCPCS: 36415; 80053; 82009; 82550; 82553; 82805; 83605; 84145; 84484; 85025; 93005; 93010; 96361; 96374; 96375; 99284; 99285; C9113; J2060; J2405

== ENCOUNTER 2022-02-09 11:21 | Emergency (ER) | payer OTHER, MEDICAID, SELFPAY ==
[2022-02-09 11:20] VITALS: BP 142/88; PULSE 122; RESP 16; TEMP 36.6; O2SAT 94; BMI 34.0
[2022-02-09] MEDS: ONDANSETRON 4 MG/2 ML INJ IV (11:49)
[2022-02-09] MEDS: SODIUM CHLORIDE 0.9% 1,000 ML 1000 ML IV ×2 (11:49→13:43)
[2022-02-09 11:50] LABS: Add Manual Diff / Slide Review NO; Basophils Absolute Auto 100 /uL (0-100); Basophils Percent Auto 0.4 % (0-2); Eosinophils Absolute Auto 0 /uL (0-450); Eosinophils Percent Auto 0.1 % (2-4); Hematocrit 45.3 % (41-53); Hemoglobin 15.4 g/dL (13.5-17.5); Lymphocytes Absolute Auto 1800 /uL (1100-4500); Lymphocytes Percent Auto 14.5 % (25-40); Mean Corpuscular HGB Conc 33.9 % (30-36); Mean Corpuscular Hemoglobin 29.6 PG (26-34); Mean Corpuscular Volume 87.2 fL (80-100); Monocytes Absolute Auto 1500 /uL (0-900); Monocytes Percent Auto 11.6 % (3-14); Neutrophils Absolute Auto 9200 /uL (1500-7000); Neutrophils Percent Auto 73.4 % (50-75); Platelet Count 321 X10^3/uL (150-400); Red Cell Distribution Width 14.2 % (11.6-14.8); White Blood Cell Count 12.5 X10^3/uL (4.5-11.0)
[2022-02-09 12:01] LABS: HCO3 VBG 26 mmol/L (23-28); Oxygen Saturation VBG 25 % (70-75); PCO2 VBG 38.5 mmHg (45-50); PO2 VBG 17 mmHg (35-45); Total CO2 VBG 27 mmol/L (24-29); pH VBG 7.44 (7.33-7.43)
[2022-02-09 12:19] LABS: Ketones (Beta-Hydroxybutyrate) 4.61 mmol/L (<0.27)
[2022-02-09 13:01] LABS: Alanine Aminotransferase 37 IU/L (<50); Albumin Globulin Ratio 1.6 (1.0-2.8); Alkaline Phosphatase 87 U/L (38-126); Aspartate Aminotransferase 42 IU/L (17-59); BUN Creatinine Ratio 37.4 (6-22); Bilirubin Total 0.8 mg/dL (0.2-1.3); Blood Urea Nitrogen 37 mg/dL (9-20); Calcium 9.4 mg/dL (8.4-10.2); Carbon Dioxide 20 mmol/L (22-32); Chloride 88 mmol/L (98-107); Estimated Glomerular Filt Rate > 60 mL/min (>60); Globulin 3.1 g/dL (1.7-4.1); HEMOLYSIS < 15 (0-50); Potassium 4.2 mmol/L (3.4-5.1); Sodium 132 mmol/L (137-145); Total Protein 8.1 g/dL (6.3-8.2)
[2022-02-09 13:10] LABS: Glucose 521 mg/dL (80-110)
[2022-02-09 16:50] VITALS: BP 132/94; PULSE 91; O2SAT 95
--- NOTE | 2022-02-15 20:42 | ED.NAVMDI ---
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 Patient was brought in by EMS after his daughter called EMS when patient did not respond to phone calls. Patient states he is an insulin-dependent diabetic, however he did not take his insulin over the last 5 days, which he attributes to apathy due to not feeling well. Patient denies fever, chills, chest pain, shortness of breath. Patient endorses feeling lethargic, weak, fatigued, dehydrated. In the ED, patient denies feeling nauseous and is not vomiting. Last marijuana use was 5 days ago. Related Data Home Medications Medication Instructions Recorded Confirmed aspirin 325 mg tablet,delayed 325 mg PO DAILY #0 02/03/12 08/17/18 release Syringes 1 syr MISCELLANEOUS DIRECTED 08/17/18 08/17/18 atorvastatin 40 mg tablet 1 tab PO QPM 08/17/18 08/17/18 glyburide 5 mg tablet 2 tab PO BID 08/17/18 08/17/18 insulin NPH isoph U-100 human 100 36 units SUBCUT BID 08/17/18 08/17/18 unit/mL subcutaneous suspension losartan 100 mg tablet 1 tab PO DAILY 08/17/18 08/17/18 metformin 1,000 mg tablet 1 tab PO BID 08/17/18 08/17/18 metoprolol succinate 25 mg 1 tab PO DAILY 08/17/18 08/17/18 tablet,extended release 24 hr nitroglycerin 0.2 mg/hr 1 patch TOPICAL DAILY 08/17/18 08/17/18 transdermal 24 hour patch omeprazole 20 mg capsule,delayed 1 cap PO DAILY 08/17/18 08/17/18 release Previous Rx's Medication Instructions Recorded nitroglycerin 0.4 mg sublingual 0.4 mg SUBLINGUAL SEE INSTRUCTIONS 04/02/13 tablet (Nitrostat) #2 bot ondansetron 4 mg disintegrating 4 mg PO Q6-8H PRN #14 tab 08/17/18 tablet (Zofran ODT) ondansetron 4 mg disintegrating 4 mg PO Q8H PRN #20 tab 04/15/19 tablet promethazine 25 mg rectal 25 mg WV Q6H PRN #12 each 04/15/19 suppository (Phenergan) ondansetron 4 mg disintegrating 4 mg PO Q6-8H PRN #20 tab 12/26/19 tablet pantoprazole 40 mg tablet,delayed 40 mg PO QAM #30 tab 12/26/19 release (Protonix) ondansetron 4 mg disintegrating 4 mg PO Q8H PRN #10 tab 02/02/21 tablet promethazine 25 mg rectal 25 mg WV Q6H PRN #12 ea 02/02/21 suppository haloperidol 2 mg tablet 2 mg PO DAILY PRN #10 tab 04/25/21 metoclopramide HCl 10 mg tablet 10 mg PO Q6H PRN #20 tab 04/25/21 pantoprazole 40 mg tablet,delayed 40 mg PO DAILY #14 tab 04/25/21 release (Protonix) promethazine 25 mg rectal 25 mg WV Q6H PRN #12 ea 04/25/21 suppository ondansetron 4 mg disintegrating 4 mg PO Q6H PRN #14 tab 10/26/21 tablet promethazine 25 mg rectal 25 mg WV Q4-6H PRN #12 ea 10/26/21 suppository Allergies Allergy/AdvReac Type Severity Reaction Status Date / Time No Known Drug Allergies Allergy Verified 02/09/22 11:24 Review of Systems <Sai Yanes PA-C - Last Filed: 02/15/22 20:52> Review of Systems ROS Unobtainable: All systems reviewed & are unremarkable except as noted in HPI and below Constitutional Constitutional: Denies chills, Reports fatigue, Denies fever(s), Denies frequent falls, Reports lethargy and Reports weakness Eyes Eyes: Denies change in vision, Denies eye discharge, Denies irritation and Denies loss of vision ENT Ears, Nose, Mouth, and Throat: Denies change in voice, Denies dizziness, Denies neck pain, Denies sore throat and Denies throat swelling Cardiovascular Cardiovascular: Denies chest pain, Denies irregular heart rhythm, Denies lightheadedness, Denies palpitations, Denies dyspnea, Denies dyspnea on exertion and Denies orthopnea Respiratory Respiratory: Denies cough, Denies dyspnea, Denies dyspnea on exertion and Denies wheezing Gastrointestinal Gastrointestinal: Denies abdominal pain, Denies change in bowel habits, Denies diarrhea, Reports nausea and Reports vomiting Genitourinary Genitourinary: Denies hematuria, Denies flank pain, Denies urinary incontinence and Denies urinary urgency Musculoskeletal Musculoskeletal: Denies back pain, Denies muscle weakness, Denies neck pain, Denies numbness and Denies tingling Integumentary/Breasts Skin/Breast: Denies pruritus, Denies erythema, Denies rash and Denies wounds Neurologic Neurologic: Denies behavioral changes, Denies confusion, Denies dizziness, Denies frequent falls, Denies loss of vision, Denies numbness, Denies tingling and Reports weakness Psychiatric Psychiatric: Denies anxiety, Denies behavioral changes, Denies confusion, Denies depression, Denies homicidal ideation and Denies suicidal ideation Endocrine Endocrine: Reports fatigue, Denies flushing and Denies palpitations Hematologic/Lymphatic Hematologic/Lymphatic: Denies easy bruising Allergic/Immunologic Allergic/Immunologic: Denies urticaria, Denies throat swelling and Denies wheezing Patient History <Sai Yanes PA-C - Last Filed: 02/15/22 20:52> Medical History Cannabinoid hyperemesis syndrome Coronary artery disease Diabetes Gastroesophageal reflux disease Hypertension Surgical History No pertinent past surgical history Social History Smoking Status: Current every day smoker Smoking Status: Current every day smoker alcohol intake frequency: other Substance Use Type: marijuana Exam <Sai Yanes PA-C - Last Filed: 02/15/22 20:52> Initial Vital Signs Initial Vital Signs: Vital Signs Temperature 97.9 F 02/09/22 11:20 Pulse Rate 122 H 02/09/22 11:20 Respiratory Rate 16 02/09/22 11:20 Blood Pressure 142/88 H 02/09/22 11:20 Pulse Oximetry 94 02/09/22 11:20 Const General: cooperative HENMT Head: normal to inspection Eyes General: Yes appearance normal, both eyes and all related structures Neck Neck: normal visual inspection Resp Effort & Inspection: normal respiratory effort Auscultation: clear to auscultation bilaterally Cardio Rate: regular rate Rhythm: regular rhythm GI Inspection: normal to inspection Other: Abdomen is soft, nontender, non distended General: No CVA tenderness Back/Spine/Pelvis Back: normal to inspection Skin General: no rashes or lesions noted Neuro General: patient alert, patient awake and patient oriented x3 Psych Appearance: grossly normal Mental Status: mental status grossly normal <DO Joe Sauer Last Filed: 02/24/22 03:43> Initial Vital Signs Initial Vital Signs: Vital Signs Temperature 97.9 F 02/09/22 11:20 Pulse Rate 122 H 02/09/22 11:20 Respiratory Rate 16 02/09/22 11:20 Blood Pressure 142/88 H 02/09/22 11:20 Pulse Oximetry 94 02/09/22 11:20 Course <Sai Yanes PA-C - Last Filed: 02/15/22 20:52> Orders Ordered: Discontinued Medications Sodium Chloride (Normal Saline 0.9%) 1,000 mls @ 1,000 mls/hr IV BOLUS ONE Stop: 02/09/22 12:30 Last Infusion: 02/09/22 13:43 Dose: 0 mls/hr Documented by: Admin: 02/09/22 11:49 Dose: 1,000 mls/hr Documented by: ANTOINETTE Sodium Chloride (Normal Saline 0.9%) 1,000 mls @ 1,000 mls/hr IV BOLUS ONE Stop: 02/09/22 14:35 Last Infusion: 02/09/22 16:24 Dose: 0 mls/hr Documented by: Admin: 02/09/22 13:43 Dose: 1,000 mls/hr Documented by: ANTOINETTE Ondansetron HCl (Ondansetron 4 Mg/2 Ml Inj) 4 mg IV NOW ONE Stop: 02/09/22 11:32 Last Admin: 02/09/22 11:49 Dose: 4 mg Documented by: ANTOINETTE <DO Joe Sauer Last Filed: 02/24/22 03:43> Orders Ordered: Discontinued Medications Sodium Chloride (Normal Saline 0.9%) 1,000 mls @ 1,000 mls/hr IV BOLUS ONE Stop: 02/09/22 12:30 Last Infusion: 02/09/22 13:43 Dose: 0 mls/hr Documented by: Admin: 02/09/22 11:49 Dose: 1,000 mls/hr Documented by: ANTOINETTE Sodium Chloride (Normal Saline 0.9%) 1,000 mls @ 1,000 mls/hr IV BOLUS ONE Stop: 02/09/22 14:35 Last Infusion: 02/09/22 16:24 Dose: 0 mls/hr Documented by: Admin: 02/09/22 13:43 Dose: 1,000 mls/hr Documented by: ANTOINETTE Ondansetron HCl (Ondansetron 4 Mg/2 Ml Inj) 4 mg IV NOW ONE Stop: 02/09/22 11:32 Last Admin: 02/09/22 11:49 Dose: 4 mg Documented by: ANTOINETTE MDM - Nausea/Vomiting/Diarrhea <Sai Yanes PA-C - Last Filed: 02/15/22 20:52> Medical Records Attestation: I reviewed the patient's medical records. Lab Data Attestation: I reviewed the patient's lab results. Lab results narrative: Glucose elevated to 521. Positive ketones. PH not reflective of metabolic acidosis. Not DKA Result diagrams: 02/09/22 11:40 02/09/22 11:40 Labs: Lab Results 02/09/22 02/09/22 02/09/22 Range/Units 11:40 11:40 11:40 WBC 12.5 H (4.5-11.0) X10^3/uL RBC 5.20 (4.5-5.9) X10^6/uL Hgb 15.4 (13.5-17.5) g/dL Hct 45.3 (41-53) % MCV 87.2 (80-100) fL MCH 29.6 (26-34) PG MCHC 33.9 (30-36) % RDW 14.2 (11.6-14.8) % Plt Count 321 (150-400) X10^3/uL Neut % (Auto) 73.4 (50-75) % Lymph % (Auto) 14.5 L (25-40) % [place] % (Auto) 11.6 (3-14) % Eos % (Auto) 0.1 L (2-4) % Baso % (Auto) 0.4 (0-2) % Neut # (Auto) 9200 H (1725-4356) /uL Lymph # (Auto) 1800 (4641-1470) /uL [place] # (Auto) 1500 H (0-900) /uL Eos # (Auto) 0 (0-450) /uL Baso # (Auto) 100 (0-100) /uL VBG pH (7.33-7.43) VBG pCO2 (45-50) mmHg VBG pO2 (35-45) mmHg VBG HCO3 (23-28) mmol/L VBG Total CO2 (24-29) mmol/L VBG O2 Saturation (70-75) % VBG Base Excess (0-4) mmol/L Sodium 132 L (137-145) mmol/L Potassium 4.2 (3.4-5.1) mmol/L Chloride 88 L (98-107) mmol/L Carbon Dioxide 20 L (22-32) mmol/L BUN 37 H (9-20) mg/dL Creatinine 0.99 (0.66-1.25) mg/dL Estimated GFR > 60 (>60) mL/min BUN/Creatinine Ratio 37.4 H (6-22) Glucose 521 H* (80-110) mg/dL Calcium 9.4 (8.4-10.2) mg/dL Total Bilirubin 0.8 (0.2-1.3) mg/dL AST 42 (17-59) IU/L ALT 37 (<50) IU/L Alkaline Phosphatase 87 (38-126) U/L Total Protein 8.1 (6.3-8.2) g/dL Albumin 5.0 (3.5-5.0) g/dL Globulin 3.1 (1.7-4.1) g/dL Albumin/Globulin Ratio 1.6 (1.0-2.8) Ketones 4.61 H (<0.27) mmol/L 02/09/22 Range/Units 11:40 WBC (4.5-11.0) X10^3/uL RBC (4.5-5.9) X10^6/uL Hgb (13.5-17.5) g/dL Hct (41-53) % MCV (80-100) fL MCH (26-34) PG MCHC (30-36) % RDW (11.6-14.8) % Plt Count (150-400) X10^3/uL Neut % (Auto) (50-75) % Lymph % (Auto) (25-40) % [place] % (Auto) (3-14) % Eos % (Auto) (2-4) % Baso % (Auto) (0-2) % Neut # (Auto) (5904-1330) /uL Lymph # (Auto) (3647-5112) /uL [place] # (Auto) (0-900) /uL Eos # (Auto) (0-450) /uL Baso # (Auto) (0-100) /uL VBG pH 7.44 H (7.33-7.43) VBG pCO2 38.5 L (45-50) mmHg VBG pO2 17 L (35-45) mmHg VBG HCO3 26 (23-28) mmol/L VBG Total CO2 27 (24-29) mmol/L VBG O2 Saturation 25 L (70-75) % VBG Base Excess 2.0 (0-4) mmol/L Sodium (137-145) mmol/L Potassium (3.4-5.1) mmol/L Chloride (98-107) mmol/L Carbon Dioxide (22-32) mmol/L BUN (9-20) mg/dL Creatinine (0.66-1.25) mg/dL Estimated GFR (>60) mL/min BUN/Creatinine Ratio (6-22) Glucose (80-110) mg/dL Calcium (8.4-10.2) mg/dL Total Bilirubin (0.2-1.3) mg/dL AST (17-59) IU/L ALT (<50) IU/L Alkaline Phosphatase (38-126) U/L Total Protein (6.3-8.2) g/dL Albumin (3.5-5.0) g/dL Globulin (1.7-4.1) g/dL Albumin/Globulin Ratio (1.0-2.8) Ketones (<0.27) mmol/L Point of Care Testing Glucose POC 384 Urine Dip Bedside Urine Glucose 1000 mg/dl Bedside Urine Bilirubin - Negative Bedside Urine Ketone +++ 80 Urine Specific [place] 1.015 Bedside Urine Occult Blood - Negative Bedside Urine pH 6.0 Bedside Urine Protein - Negative Bedside Urine Urobilinogen - Negative Bedside Urine Nitrite - Negative Bedside Urine Leukocytes - Negative Esterase MDM Narrative Medical decision making narrative: 61-year-old male with a 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 Concern for DKA versus dehydration versus CHS. Will order labs, VBG, ketones. Will give IV fluids. No indication for antiemetics, given patient is not nauseous in the ED or actively vomiting. Will reassess. Patient's blood glucose elevated to 521, positive ketones. Patient is not in DKA, given pH does not reflect metabolic acidosis. Patient's blood glucose values improved to the 384 with 2 L of IV fluids. Patient endorses feeling better after the IV fluids, agrees to continue his insulin regimen at home. ED return precautions discussed with patient. Patient verbalizes understanding. <Myriam Weber, DO - Last Filed: 02/24/22 03:43> Lab Data Labs: Lab Results 02/09/22 02/09/22 02/09/22 Range/Units 11:40 11:40 11:40 WBC 12.5 H (4.5-11.0) X10^3/uL RBC 5.20 (4.5-5.9) X10^6/uL Hgb 15.4 (13.5-17.5) g/dL Hct 45.3 (41-53) % MCV 87.2 (80-100) fL MCH 29.6 (26-34) PG MCHC 33.9 (30-36) % RDW 14.2 (11.6-14.8) % Plt Count 321 (150-400) X10^3/uL Neut % (Auto) 73.4 (50-75) % Lymph % (Auto) 14.5 L (25-40) % [place] % (Auto) 11.6 (3-14) % Eos % (Auto) 0.1 L (2-4) % Baso % (Auto) 0.4 (0-2) % Neut # (Auto) 9200 H (3525-9603) /uL Lymph # (Auto) 1800 (3431-0514) /uL [place] # (Auto) 1500 H (0-900) /uL Eos # (Auto) 0 (0-450) /uL Baso # (Auto) 100 (0-100) /uL VBG pH (7.33-7.43) VBG pCO2 (45-50) mmHg VBG pO2 (35-45) mmHg VBG HCO3 (23-28) mmol/L VBG Total CO2 (24-29) mmol/L VBG O2 Saturation (70-75) % VBG Base Excess (0-4) mmol/L Sodium 132 L (137-145) mmol/L Potassium 4.2 (3.4-5.1) mmol/L Chloride 88 L (98-107) mmol/L Carbon Dioxide 20 L (22-32) mmol/L BUN 37 H (9-20) mg/dL Creatinine 0.99 (0.66-1.25) mg/dL Estimated GFR > 60 (>60) mL/min BUN/Creatinine Ratio 37.4 H (6-22) Glucose 521 H* (80-110) mg/dL Calcium 9.4 (8.4-10.2) mg/dL Total Bilirubin 0.8 (0.2-1.3) mg/dL AST 42 (17-59) IU/L ALT 37 (<50) IU/L Alkaline Phosphatase 87 (38-126) U/L Total Protein 8.1 (6.3-8.2) g/dL Albumin 5.0 (3.5-5.0) g/dL Globulin 3.1 (1.7-4.1) g/dL Albumin/Globulin Ratio 1.6 (1.0-2.8) Ketones 4.61 H (<0.27) mmol/L 02/09/22 Range/Units 11:40 WBC (4.5-11.0) X10^3/uL RBC (4.5-5.9) X10^6/uL Hgb (13.5-17.5) g/dL Hct (41-53) % MCV (80-100) fL MCH (26-34) PG MCHC (30-36) % RDW (11.6-14.8) % Plt Count (150-400) X10^3/uL Neut % (Auto) (50-75) % Lymph % (Auto) (25-40) % [place] % (Auto) (3-14) % Eos % (Auto) (2-4) % Baso % (Auto) (0-2) % Neut # (Auto) (3217-1562) /uL Lymph # (Auto) (8988-7969) /uL [place] # (Auto) (0-900) /uL Eos # (Auto) (0-450) /uL Baso # (Auto) (0-100) /uL VBG pH 7.44 H (7.33-7.43) VBG pCO2 38.5 L (45-50) mmHg VBG pO2 17 L (35-45) mmHg VBG HCO3 26 (23-28) mmol/L VBG Total CO2 27 (24-29) mmol/L VBG O2 Saturation 25 L (70-75) % VBG Base Excess 2.0 (0-4) mmol/L Sodium (137-145) mmol/L Potassium (3.4-5.1) mmol/L Chloride (98-107) mmol/L Carbon Dioxide (22-32) mmol/L BUN (9-20) mg/dL Creatinine (0.66-1.25) mg/dL Estimated GFR (>60) mL/min BUN/Creatinine Ratio (6-22) Glucose (80-110) mg/dL Calcium (8.4-10.2) mg/dL Total Bilirubin (0.2-1.3) mg/dL AST (17-59) IU/L ALT (<50) IU/L Alkaline Phosphatase (38-126) U/L Total Protein (6.3-8.2) g/dL Albumin (3.5-5.0) g/dL Globulin (1.7-4.1) g/dL Albumin/Globulin Ratio (1.0-2.8) Ketones (<0.27) mmol/L Point of Care Testing Glucose POC 384 Urine Dip Bedside Urine Glucose 1000 mg/dl Bedside Urine Bilirubin - Negative Bedside Urine Ketone +++ 80 Urine Specific [place] 1.015 Bedside Urine Occult Blood - Negative Bedside Urine pH 6.0 Bedside Urine Protein - Negative Bedside Urine Urobilinogen - Negative Bedside Urine Nitrite - Negative Bedside Urine Leukocytes - Negative Esterase Discharge Plan Departure Patient Disposition: Home Clinical Impression: Vomiting Instructions: DI for Dehydration -- Adult, DI for Vomiting -- Adult Activity Restrictions/Additional Instructions: You were evaluated in the ED today for nausea and vomiting. In the ED, you were not nauseous and you did not vomit. Your labs showed that you were dehydrated and your blood sugar was elevated. You were given 2 L of IV fluids which improved your blood glucose numbers. Please continue to take your insulin as prescribed to keep your blood sugars under control. Continue to stay hydrated. Return to the ED if you continue to uncontrollably vomit, unable to hold down fluids, you have a fever, chest pain, shortness of breath. Prescriptions: No Action aspirin 325 mg Tablet,Delayed Release (Dr/Ec) 325 mg PO DAILY Qty: 0 0RF nitroglycerin [Nitrostat] 0.4 MG tablet, sublingual 0.4 mg Sublingual SEE INSTRUCTIONS Qty: 2 PRNRF promethazine [Phenergan] 25 mg suppository 25 mg WV Q6H PRN (Reason: nausea and vomiting) Qty: 12 0RF ondansetron 4 mg tablet,disintegrating 4 mg PO Q8H PRN (Reason: nausea and vomiting) Qty: 20 0RF ondansetron 4 mg tablet,disintegrating 4 mg PO Q8H PRN (Reason: nausea and vomiting) Qty: 10 0RF promethazine 25 mg suppository 25 mg WV Q6H PRN (Reason: nausea and vomiting) Qty: 12 0RF pantoprazole [Protonix] 40 mg tablet,delayed release (DR/EC) 40 mg PO DAILY Qty: 14 0RF metoclopramide HCl 10 mg tablet 10 mg PO Q6H PRN (Reason: nausea and vomiting) Qty: 20 0RF promethazine 25 mg suppository 25 mg WV Q6H PRN (Reason: nausea and vomiting) Qty: 12 0RF haloperidol 2 mg tablet 2 mg PO DAILY PRN (Reason: nausea and vomiting) Qty: 10 0RF ondansetron 4 mg tablet,disintegrating 4 mg PO Q6H PRN (Reason: nausea and vomiting) Qty: 14 0RF promethazine 25 mg suppository 25 mg WV Q4-6H PRN (Reason: nausea and vomiting) Qty: 12 0RF atorvastatin 40 mg tablet 1 tab PO QPM 0RF glyburide 5 mg tablet 2 tab PO BID 0RF metformin 1,000 mg tablet 1 tab PO BID 0RF insulin NPH isoph U-100 human [Humulin N NPH U-100 Insulin] 100 unit/mL suspension 36 units subcut BID 0RF omeprazole 20 mg capsule,delayed release(DR/EC) 1 cap PO DAILY 0RF metoprolol succinate 25 mg tablet extended release 24 hr 1 tab PO DAILY 0RF losartan 100 mg tablet 1 tab PO DAILY 0RF nitroglycerin 0.2 mg/hr patch 24 hour 1 patch Topical DAILY 0RF Syringes 1 syr miscellaneous DIRECTED 0RF ondansetron [Zofran ODT] 4 mg tablet,disintegrating 4 mg PO Q6-8H PRN (Reason: nausea and vomiting) Qty: 14 0RF pantoprazole [Protonix] 40 mg tablet,delayed release (DR/EC) 40 mg PO QAM Qty: 30 0RF ondansetron 4 mg tablet,disintegrating 4 mg PO Q6-8H PRN (Reason: nausea and vomiting) Qty: 20 0RF <Myriam Weber DO - Last Filed: 02/24/22 03:43> Cosign ED Attending Cosignature Attestation: I was immediately available in the department for consultation. Documentation has been reviewed.
== END 2022-02-09 16:50 | disposition home or self-care (01) ==
PROVIDERS: Emergency Medicine; Emergency Provider Student in an Organized Health Care Education/Training Program
DX: R11.2 Nausea with vomiting, unspecified (principal); E86.0 Dehydration; R53.83 Other fatigue; E11.65 Type 2 diabetes mellitus with hyperglycemia; Z79.4 Long term (current) use of insulin; Z79.84 Long term (current) use of oral hypoglycemic drugs
CPT/HCPCS: 36415; 80053; 81003; 82009; 82805; 82962; 85025; 96361; 96374; 99284; J2405

== ENCOUNTER 2024-12-21 15:44 | Emergency (ER) | payer MEDICARE, SELFPAY ==
[2024-12-21] VITALS (8 sets, daily range): BP systolic 138–204; BP diastolic 66–105; PULSE 99–114; RESP 18; TEMP 36.4–36.7; O2SAT 90–98; BMI 29.5
--- NOTE | 2024-12-21 15:58 | EKG_ITS ---
[address] [address] Test Date: 2024-12-21 Pat Name: Royce Roman Department: Room: Gender: Male [employer]: APRIL : 1960 Requested By: Order Number: [id number] Reading MD: Hernesto Paz Measurements Intervals [place] Rate: 108 P: 65 AK: 180 QRS: 47 QRSD: 82 T: 86 QT: 316 QTc: 423 Interpretive Statements Sinus tachycardia Possible Left atrial enlargement Cannot rule out Anterior infarct , age undetermined Electronically Signed On 12-23-2024 18:56:25 PST by Hernesto Paz
[2024-12-21] MEDS: ONDANSETRON 4 MG/2 ML INJ IV (16:11)
--- NOTE | 2024-12-21 16:14 | ED_ITS ---
HPI - Nausea/Vomiting/Diarrhea <Amari Toscano MD - Last Filed: 12/24/24 07:53> General Chief complaint: Nausea/Vomiting/Diarrhea Stated complaint: vomiting since this morning Time Seen by Provider: 12/21/24 16:09 History of Present Illness HPI Narrative: Patient brought here by a friend from home for intractable vomiting since this morning. Started off as frothy white but now has dark emesis. Likely Eugenia- Lazar as patient is retching here. Patient has history of noncompliance with his insulin dependent diabetes. Has been off insulin for 1 month due to pharmacy complications he states. He is still taking his metformin. He does continue to use marijuana. Patient has had visits to the emergency department for cannabinoid hyperemesis syndrome in the past. Related Data Home Medications Medication Instructions Recorded Confirmed aspirin 325 mg tablet,delayed 325 mg PO DAILY ##0 02/03/12 08/17/18 release Syringes 1 syr miscellaneous DIRECTED 08/17/18 08/17/18 atorvastatin 40 mg tablet 1 tab PO QPM 08/17/18 08/17/18 glyburide 5 mg tablet 2 tab PO BID 08/17/18 08/17/18 insulin NPH isoph U-100 human 100 36 units SUBCUT BID 08/17/18 08/17/18 unit/mL subcutaneous suspension losartan 100 mg tablet 1 tab PO DAILY 08/17/18 08/17/18 metformin 1,000 mg tablet 1 tab PO BID 08/17/18 08/17/18 metoprolol succinate 25 mg 1 tab PO DAILY 08/17/18 08/17/18 tablet,extended release 24 hr nitroglycerin 0.2 mg/hr 1 patch topical DAILY 08/17/18 08/17/18 transdermal 24 hour patch omeprazole 20 mg capsule,delayed 1 cap PO DAILY 08/17/18 08/17/18 release Previous Rx's Medication Instructions Recorded nitroglycerin 0.4 mg sublingual 0.4 mg sublingual SEE INSTRUCTIONS 04/02/13 tablet (Nitrostat) ##2 ondansetron 4 mg disintegrating 4 mg PO Q6-8H PRN nausea and 08/17/18 tablet (Zofran ODT) vomiting #14 tabs ondansetron 4 mg disintegrating 4 mg PO Q8H PRN nausea and 04/15/19 tablet vomiting #20 tabs promethazine 25 mg rectal 25 mg AK Q6H PRN nausea and 04/15/19 suppository (Phenergan) vomiting #12 ea ondansetron 4 mg disintegrating 4 mg PO Q6-8H PRN nausea and 12/26/19 tablet vomiting #20 tabs pantoprazole 40 mg tablet,delayed 40 mg PO QAM #30 tabs 12/26/19 release (Protonix) ondansetron 4 mg disintegrating 4 mg PO Q8H PRN nausea and 02/02/21 tablet vomiting #10 tabs promethazine 25 mg rectal 25 mg AK Q6H PRN nausea and 02/02/21 suppository vomiting #12 ea haloperidol 2 mg tablet 2 mg PO DAILY PRN nausea and 04/25/21 vomiting #10 tabs metoclopramide HCl 10 mg tablet 10 mg PO Q6H PRN nausea and 04/25/21 vomiting #20 tabs pantoprazole 40 mg tablet,delayed 40 mg PO DAILY #14 tabs 04/25/21 release (Protonix) promethazine 25 mg rectal 25 mg AK Q6H PRN nausea and 04/25/21 suppository vomiting #12 ea ondansetron 4 mg disintegrating 4 mg PO Q6H PRN nausea and 10/26/21 tablet vomiting #14 tabs promethazine 25 mg rectal 25 mg AK Q4-6H PRN nausea and 10/26/21 suppository vomiting #12 ea Allergies Allergy/AdvReac Type Severity Reaction Status Date / Time No Known Drug Allergies Allergy Verified 02/09/22 11:24 Review of Systems <Amari Toscano MD - Last Filed: 12/24/24 07:53> Review of Systems Narrative: GENERAL: Negative chills, fatigue, malaise, fever, sweats. HEENT: Negative sinus pain, ear pain, sore throat RESPIRATORY: Negative dyspnea, cough CARDIOVASCULAR: Negative chest pain, palpitations GASTROINTESTINAL: Positive nausea, vomiting, negative abdominal pain : Negative dysuria, frequency, hematuria MUSCULOSKELETAL: Negative muscle or bony pain SKIN: Negative rash, skin lesions NEUROLOGIC: Negative weakness, numbness ROS Unobtainable: All systems reviewed & are unremarkable except as noted in HPI and below Patient History <Amari Toscano MD - Last Filed: 12/24/24 07:53> Medical History Cannabinoid hyperemesis syndrome Coronary artery disease Diabetes Gastroesophageal reflux disease Hypertension Surgical History No pertinent past surgical history Social History Smoking Status: Current every day smoker Smoking Status: Current every day smoker tobacco type: cigarettes alcohol intake frequency: other Exam <Amari Toscano MD - Last Filed: 12/24/24 07:53> Narrative Exam Narrative: GENERAL: in no distress, not toxic not dyspneic HEAD: Normocephalic. EYES: Pupils equal round ENT: Mucous membranes moist. NECK: Trachea midline. CARDIOVASCULAR: Regular rate and rhythm RESPIRATORY: Clear to auscultation. Breath sounds equal bilaterally. No wheezes, rales, or rhonchi. GASTROINTESTINAL: Abdomen soft, nontender no peritoneal signs bowel sounds are present. Does have dark emesis in an emesis bag. No bright red blood. EXTREMITIES: No gross deformities. BACK: No flank tenderness. NEURO: AOx4. Clear speech SKIN: Warm and dry PSYCH: Not anxious, is cooperative Initial Vital Signs Initial Vital Signs: Vital Signs Temperature 97.6 F 12/21/24 15:48 Pulse Rate 114 H 12/21/24 15:48 Respiratory Rate 18 12/21/24 15:48 Blood Pressure 174/97 H 12/21/24 15:48 Pulse Oximetry 98 12/21/24 15:48 Oxygen Delivery Method Room Air 12/21/24 15:48 <Inder Horne MD - Last Filed: 12/22/24 04:58> Initial Vital Signs Initial Vital Signs: Vital Signs Temperature 97.6 F 12/21/24 15:48 Pulse Rate 114 H 12/21/24 15:48 Respiratory Rate 18 12/21/24 15:48 Blood Pressure 174/97 H 12/21/24 15:48 Pulse Oximetry 98 12/21/24 15:48 Oxygen Delivery Method Room Air 12/21/24 15:48 Course <Amari Toscano MD - Last Filed: 12/24/24 07:53> Orders Ordered: Discontinued Medications Sodium Chloride (Normal Saline 0.9%) 1,000 mls @ 1,000 mls/hr IV BOLUS ONE Stop: 12/21/24 17:12 Last Infusion: 12/21/24 17:40 Dose: Infused Documented By: Admin: 12/21/24 16:23 Dose: 1,000 mls/hr Documented By: FRANDY Sodium Chloride (Normal Saline 0.9%) 1,000 mls @ 1,000 mls/hr IV BOLUS ONE Stop: 12/21/24 18:39 Last Infusion: 12/21/24 19:16 Dose: Infused Documented By: Admin: 12/21/24 17:53 Dose: 1,000 mls/hr Documented By: JOSEFA Ondansetron HCl (Ondansetron 4 Mg/2 Ml Inj) 4 mg IV NOW PRN PRN Reason: Nausea And Vomiting Last Admin: 12/21/24 16:11 Dose: 4 mg Documented By: SHANNEN Ondansetron HCl (Ondansetron 4 Mg Odt) 4 mg PO NOW PRN PRN Reason: Nausea And Vomiting Prochlorperazine (Prochlorperazine 10 Mg/2 Ml Vial) 10 mg IV NOW ONE Stop: 12/21/24 16:14 Last Admin: 12/21/24 16:24 Dose: 10 mg Documented By: FRANDY Vital Signs Vital signs: Vital Signs - 8 hr 12/21/24 21:47 Temperature 98.1 F Pulse Rate 114 H Respiratory Rate 18 Blood Pressure 188/98 H Pulse Oximetry 98 Oxygen Delivery Method Room Air <Inder Horne MD - Last Filed: 12/22/24 04:58> Orders Ordered: Discontinued Medications Sodium Chloride (Normal Saline 0.9%) 1,000 mls @ 1,000 mls/hr IV BOLUS ONE Stop: 12/21/24 17:12 Last Infusion: 12/21/24 17:40 Dose: Infused Documented By: Admin: 12/21/24 16:23 Dose: 1,000 mls/hr Documented By: FRANDY Sodium Chloride (Normal Saline 0.9%) 1,000 mls @ 1,000 mls/hr IV BOLUS ONE Stop: 12/21/24 18:39 Last Infusion: 12/21/24 19:16 Dose: Infused Documented By: Admin: 12/21/24 17:53 Dose: 1,000 mls/hr Documented By: JOSEFA Ondansetron HCl (Ondansetron 4 Mg/2 Ml Inj) 4 mg IV NOW PRN PRN Reason: Nausea And Vomiting Last Admin: 12/21/24 16:11 Dose: 4 mg Documented By: SHANNEN Ondansetron HCl (Ondansetron 4 Mg Odt) 4 mg PO NOW PRN PRN Reason: Nausea And Vomiting Prochlorperazine (Prochlorperazine 10 Mg/2 Ml Vial) 10 mg IV NOW ONE Stop: 12/21/24 16:14 Last Admin: 12/21/24 16:24 Dose: 10 mg Documented By: RB Vital Signs Vital signs: Vital Signs - 8 hr 12/21/24 21:47 Temperature 98.1 F Pulse Rate 114 H Respiratory Rate 18 Blood Pressure 188/98 H Pulse Oximetry 98 Oxygen Delivery Method Room Air MDM - Nausea/Vomiting/Diarrhea <Amari Toscano MD - Last Filed: 12/24/24 07:53> Lab Data 12/21/24 16:00 12/21/24 19:21 Labs: Lab Results 12/21/24 12/21/24 12/21/24 Range/Units 16:00 16:15 17:42 WBC 11.4 H (4.5-11.0) X10^3/uL RBC 5.66 (4.5-5.9) X10^6/uL Hgb 17.5 (13.5-17.5) g/dL Hct 51.0 (41-53) % MCV 90.1 (80-100) fL MCH 31.0 (26-34) PG MCHC 34.4 (30-36) % RDW 13.8 (11.6-14.8) % Plt Count 324 (150-400) X10^3/uL Neut % (Auto) 88.9 H (50-75) % Lymph % (Auto) 7.4 L (25-40) % Delta % (Auto) 3.3 (3-14) % Eos % (Auto) 0.0 L (2-4) % Baso % (Auto) 0.4 (0-2) % Neut # (Auto) 66361 H (5543-3044) /uL Lymph # (Auto) 800 L (4257-2118) /uL Delta # (Auto) 400 (0-900) /uL Eos # (Auto) 0 (0-450) /uL Baso # (Auto) 0 (0-100) /uL Sodium 140 (137-145) mmol/L Potassium 4.1 (3.4-5.1) mmol/L Chloride 98 (98-107) mmol/L Carbon Dioxide 22 (22-32) mmol/L BUN 18 (9-20) mg/dL Creatinine 0.79 (0.66-1.25) mg/dL Estimated GFR > 60 (>60) mL/min BUN/Creatinine Ratio 22.8 H (6-22) Glucose 285 H (80-110) mg/dL Calcium 10.2 (8.4-10.2) mg/dL Total Bilirubin 0.8 (0.2-1.3) mg/dL AST 47 (17-59) IU/L ALT 33 (<50) IU/L Alkaline Phosphatase 83 (38-126) U/L Total Protein 9.3 H (6.3-8.2) g/dL Albumin 5.4 H (3.5-5.0) g/dL Globulin 3.9 (1.7-4.1) g/dL Albumin/Globulin Ratio 1.4 (1.0-2.8) Lipase 63 (23-300) U/L Urine RBC 1-5/hpf (0-5/HPF) Urine WBC 0-1/hpf (0-5/HPF) Ur Squamous Epith Cells 0-1 /hpf (0-5/HPF) Urine Bacteria None seen (None) Ur Culture Indicated? Cult not indicated Vol Urine Centrifuged 10ml (spun) U Opiates 300ng/mL cut Negative (Negative) Ur Oxycodone Screen Negative (Negative) Urine Methadone Screen Negative (Negative) Ur Barbiturates Screen Negative (Negative) U Tricyclic Antidepress Negative (Negative) Ur Phencyclidine Scrn Negative (Negative) Ur Amphetamines Screen Negative (Negative) U Methamphetamines Scrn Negative (Negative) Ur MDMA Scrn (Ecstasy) Negative (Negative) U Benzodiazepines Scrn Negative (Negative) Urine Cocaine Screen Negative (Negative) U Marijuana (THC) Screen Positive H (Negative) Urine pH Normal (Normal) Urine Specific [place] Normal (Normal) Ketones 2.90 H (<0.27) mmol/L Ur Creatinine Normal (Normal) SARS-CoV-2 (PCR) Negative (Negative) Influenza A (RT-PCR) Flu a negative (NEGATIVE) Influenza B (RT-PCR) Flu b negative (NEGATIVE) RSV (PCR) Negative (Negative) 12/21/24 Range/Units 19:21 WBC (4.5-11.0) X10^3/uL RBC (4.5-5.9) X10^6/uL Hgb (13.5-17.5) g/dL Hct (41-53) % MCV (80-100) fL MCH (26-34) PG MCHC (30-36) % RDW (11.6-14.8) % Plt Count (150-400) X10^3/uL Neut % (Auto) (50-75) % Lymph % (Auto) (25-40) % Delta % (Auto) (3-14) % Eos % (Auto) (2-4) % Baso % (Auto) (0-2) % Neut # (Auto) (4063-7012) /uL Lymph # (Auto) (6645-2705) /uL Delta # (Auto) (0-900) /uL Eos # (Auto) (0-450) /uL Baso # (Auto) (0-100) /uL Sodium 142 (137-145) mmol/L Potassium 3.9 (3.4-5.1) mmol/L Chloride 103 (98-107) mmol/L Carbon Dioxide 26 (22-32) mmol/L BUN 15 (9-20) mg/dL Creatinine 0.68 (0.66-1.25) mg/dL Estimated GFR > 60 (>60) mL/min BUN/Creatinine Ratio 22.1 H (6-22) Glucose 204 H (80-110) mg/dL Calcium 9.1 (8.4-10.2) mg/dL Total Bilirubin 0.5 (0.2-1.3) mg/dL AST 42 (17-59) IU/L ALT 27 (<50) IU/L Alkaline Phosphatase 61 (38-126) U/L Total Protein 8.1 (6.3-8.2) g/dL Albumin 4.9 (3.5-5.0) g/dL Globulin 3.2 (1.7-4.1) g/dL Albumin/Globulin Ratio 1.5 (1.0-2.8) Lipase (23-300) U/L Urine RBC (0-5/HPF) Urine WBC (0-5/HPF) Ur Squamous Epith Cells (0-5/HPF) Urine Bacteria (None) Ur Culture Indicated? Vol Urine Centrifuged U Opiates 300ng/mL cut (Negative) Ur Oxycodone Screen (Negative) Urine Methadone Screen (Negative) Ur Barbiturates Screen (Negative) U Tricyclic Antidepress (Negative) Ur Phencyclidine Scrn (Negative) Ur Amphetamines Screen (Negative) U Methamphetamines Scrn (Negative) Ur MDMA Scrn (Ecstasy) (Negative) U Benzodiazepines Scrn (Negative) Urine Cocaine Screen (Negative) U Marijuana (THC) Screen (Negative) Urine pH (Normal) Urine Specific [place] (Normal) Ketones 1.72 H (<0.27) mmol/L Ur Creatinine (Normal) SARS-CoV-2 (PCR) (Negative) Influenza A (RT-PCR) (NEGATIVE) Influenza B (RT-PCR) (NEGATIVE) RSV (PCR) (Negative) Urine Dip Bedside Urine Glucose 1000 mg/dl Bedside Urine Bilirubin - Negative Bedside Urine Ketone +++ 80 Urine Specific [place] 1.020 Bedside Urine Occult Blood + Bedside Urine pH 6.0 Bedside Urine Protein ++ 100 Bedside Urine Urobilinogen - Negative Bedside Urine Nitrite - Negative Bedside Urine Leukocytes - Negative Esterase MDM Narrative Medical decision making narrative: Patient brought here by a friend from home for intractable vomiting since this morning. Started off as frothy white but now has dark emesis. Likely Eugenia- Lazar as patient is retching here. Patient has history of noncompliance with his insulin dependent diabetes. Has been off insulin for 1 month due to pharmacy complications he states. He is still taking his metformin. He does continue to use marijuana. Patient has had visits to the emergency department for cannabinoid hyperemesis syndrome in the past. After history and exam, CBC CMP drug screen lipase Compazine normal saline serum ketone MDM Medical records reviewed: Past visits here for cannabinoid hyperemesis syndrome. As well as cyclic vomiting Differential considered: Includes but not limited to cyclic vomiting CHS, TKA Lab Test results independently reviewed as above. Pertinent findings: WBC 11.4 hemoglobin 17.5 sodium 140 potassium 4.1 bicarb 22 BUN 18 creatinine 0.79 GFR greater than 60 glucose 285 ketones 2.90 Independently reviewed EKG sinus tachycardia rate 108 Imaging studies independently reviewed: None indicated at this time Consultations: 5:[address] Paz, normal bicarb. Patient likely not in DKA. Can be discharged home after symptomatic treatment. Treatments: Compazine Zofran normal saline Re-evaluations: 5:45 p.m.. Patient feeling better at this time. Discussion: Diagnosis: 6:[address] Toscano: Sign out to Dr. Horne, patient likely cyclic vomiting versus marijuana hyperemesis syndrome. Will need reassessment after more IV fluids. Laboratory studies do show ketones but will need repeat. Patient not in DKA. <Inder Horne MD - Last Filed: 12/22/24 04:58> Lab Data Labs: Lab Results 12/21/24 12/21/24 12/21/24 Range/Units 16:00 16:15 17:42 WBC 11.4 H (4.5-11.0) X10^3/uL RBC 5.66 (4.5-5.9) X10^6/uL Hgb 17.5 (13.5-17.5) g/dL Hct 51.0 (41-53) % MCV 90.1 (80-100) fL MCH 31.0 (26-34) PG MCHC 34.4 (30-36) % RDW 13.8 (11.6-14.8) % Plt Count 324 (150-400) X10^3/uL Neut % (Auto) 88.9 H (50-75) % Lymph % (Auto) 7.4 L (25-40) % Delta % (Auto) 3.3 (3-14) % Eos % (Auto) 0.0 L (2-4) % Baso % (Auto) 0.4 (0-2) % Neut # (Auto) 77582 H (2030-7980) /uL Lymph # (Auto) 800 L (3130-3338) /uL Delta # (Auto) 400 (0-900) /uL Eos # (Auto) 0 (0-450) /uL Baso # (Auto) 0 (0-100) /uL Sodium 140 (137-145) mmol/L Potassium 4.1 (3.4-5.1) mmol/L Chloride 98 (98-107) mmol/L Carbon Dioxide 22 (22-32) mmol/L BUN 18 (9-20) mg/dL Creatinine 0.79 (0.66-1.25) mg/dL Estimated GFR > 60 (>60) mL/min BUN/Creatinine Ratio 22.8 H (6-22) Glucose 285 H (80-110) mg/dL Calcium 10.2 (8.4-10.2) mg/dL Total Bilirubin 0.8 (0.2-1.3) mg/dL AST 47 (17-59) IU/L ALT 33 (<50) IU/L Alkaline Phosphatase 83 (38-126) U/L Total Protein 9.3 H (6.3-8.2) g/dL Albumin 5.4 H (3.5-5.0) g/dL Globulin 3.9 (1.7-4.1) g/dL Albumin/Globulin Ratio 1.4 (1.0-2.8) Lipase 63 (23-300) U/L Urine RBC 1-5/hpf (0-5/HPF) Urine WBC 0-1/hpf (0-5/HPF) Ur Squamous Epith Cells 0-1 /hpf (0-5/HPF) Urine Bacteria None seen (None) Ur Culture Indicated? Cult not indicated Vol Urine Centrifuged 10ml (spun) U Opiates 300ng/mL cut Negative (Negative) Ur Oxycodone Screen Negative (Negative) Urine Methadone Screen Negative (Negative) Ur Barbiturates Screen Negative (Negative) U Tricyclic Antidepress Negative (Negative) Ur Phencyclidine Scrn Negative (Negative) Ur Amphetamines Screen Negative (Negative) U Methamphetamines Scrn Negative (Negative) Ur MDMA Scrn (Ecstasy) Negative (Negative) U Benzodiazepines Scrn Negative (Negative) Urine Cocaine Screen Negative (Negative) U Marijuana (THC) Screen Positive H (Negative) Urine pH Normal (Normal) Urine Specific [place] Normal (Normal) Ketones 2.90 H (<0.27) mmol/L Ur Creatinine Normal (Normal) SARS-CoV-2 (PCR) Negative (Negative) Influenza A (RT-PCR) Flu a negative (NEGATIVE) Influenza B (RT-PCR) Flu b negative (NEGATIVE) RSV (PCR) Negative (Negative) 12/21/24 Range/Units 19:21 WBC (4.5-11.0) X10^3/uL RBC (4.5-5.9) X10^6/uL Hgb (13.5-17.5) g/dL Hct (41-53) % MCV (80-100) fL MCH (26-34) PG MCHC (30-36) % RDW (11.6-14.8) % Plt Count (150-400) X10^3/uL Neut % (Auto) (50-75) % Lymph % (Auto) (25-40) % Delta % (Auto) (3-14) % Eos % (Auto) (2-4) % Baso % (Auto) (0-2) % Neut # (Auto) (9567-3582) /uL Lymph # (Auto) (0717-4443) /uL Delta # (Auto) (0-900) /uL Eos # (Auto) (0-450) /uL Baso # (Auto) (0-100) /uL Sodium 142 (137-145) mmol/L Potassium 3.9 (3.4-5.1) mmol/L Chloride 103 (98-107) mmol/L Carbon Dioxide 26 (22-32) mmol/L BUN 15 (9-20) mg/dL Creatinine 0.68 (0.66-1.25) mg/dL Estimated GFR > 60 (>60) mL/min BUN/Creatinine Ratio 22.1 H (6-22) Glucose 204 H (80-110) mg/dL Calcium 9.1 (8.4-10.2) mg/dL Total Bilirubin 0.5 (0.2-1.3) mg/dL AST 42 (17-59) IU/L ALT 27 (<50) IU/L Alkaline Phosphatase 61 (38-126) U/L Total Protein 8.1 (6.3-8.2) g/dL Albumin 4.9 (3.5-5.0) g/dL Globulin 3.2 (1.7-4.1) g/dL Albumin/Globulin Ratio 1.5 (1.0-2.8) Lipase (23-300) U/L Urine RBC (0-5/HPF) Urine WBC (0-5/HPF) Ur Squamous Epith Cells (0-5/HPF) Urine Bacteria (None) Ur Culture Indicated? Vol Urine Centrifuged U Opiates 300ng/mL cut (Negative) Ur Oxycodone Screen (Negative) Urine Methadone Screen (Negative) Ur Barbiturates Screen (Negative) U Tricyclic Antidepress (Negative) Ur Phencyclidine Scrn (Negative) Ur Amphetamines Screen (Negative) U Methamphetamines Scrn (Negative) Ur MDMA Scrn (Ecstasy) (Negative) U Benzodiazepines Scrn (Negative) Urine Cocaine Screen (Negative) U Marijuana (THC) Screen (Negative) Urine pH (Normal) Urine Specific [place] (Normal) Ketones 1.72 H (<0.27) mmol/L Ur Creatinine (Normal) SARS-CoV-2 (PCR) (Negative) Influenza A (RT-PCR) (NEGATIVE) Influenza B (RT-PCR) (NEGATIVE) RSV (PCR) (Negative) Urine Dip Bedside Urine Glucose 1000 mg/dl Bedside Urine Bilirubin - Negative Bedside Urine Ketone +++ 80 Urine Specific [place] 1.020 Bedside Urine Occult Blood + Bedside Urine pH 6.0 Bedside Urine Protein ++ 100 Bedside Urine Urobilinogen - Negative Bedside Urine Nitrite - Negative Bedside Urine Leukocytes - Negative Esterase MDM Narrative Medical decision making narrative: Patient brought here by a friend from home for intractable vomiting since this morning. Started off as frothy white but now has dark emesis. Likely Eugenia- Lazar as patient is retching here. Patient has history of noncompliance with his insulin dependent diabetes. Has been off insulin for 1 month due to pharmacy complications he states. He is still taking his metformin. He does continue to use marijuana. Patient has had visits to the emergency department for cannabinoid hyperemesis syndrome in the past. After history and exam, CBC CMP drug screen lipase Compazine normal saline serum ketone MDM Medical records reviewed: Past visits here for cannabinoid hyperemesis syndrome. As well as cyclic vomiting Differential considered: Includes but not limited to cyclic vomiting CHS, TKA Lab Test results independently reviewed as above. Pertinent findings: WBC 11.4 hemoglobin 17.5 sodium 140 potassium 4.1 bicarb 22 BUN 18 creatinine 0.79 GFR greater than 60 glucose 285 ketones 2.90 Independently reviewed EKG sinus tachycardia rate 108 Imaging studies independently reviewed: None indicated at this time Consultations: 5:[address] Paz, normal bicarb. Patient likely not in DKA. Can be discharged home after symptomatic treatment. Treatments: Compazine Zofran normal saline Re-evaluations: 5:45 p.m.. Patient feeling better at this time. Discussion: Diagnosis: 6:[address] Toscano: Sign out to Dr. Horne, patient likely cyclic vomiting versus marijuana hyperemesis syndrome. Will need reassessment after more IV fluids. Laboratory studies do show ketones but will need repeat. Patient not in DKA. - patient's repeat labs show improving lactic acid level, improving anion gap, improving ketone level after fluid administration patient passed p.o. challenge and will be discharged at this time - Inder Horne Discharge Plan Departure Patient Disposition: Home Clinical Impression: Vomiting Qualifiers: Vomiting type: unspecified Nausea presence: unspecified Qualified Code(s): R 11.10 - Vomiting, unspecified Instructions: DI for Dehydration -- Adult Activity Restrictions/Additional Instructions: Please return to the emergency department if you have worsening symptoms and wished to be re-evaluated please remain compliant with her medications for diabetes and take the Zofran previously prescribed to for management of your vomiting. Prescriptions: No Action aspirin 325 mg Tablet,Delayed Release (Dr/Ec) 325 mg PO DAILY Qty: 0 nitroglycerin [Nitrostat] 0.4 MG tablet, sublingual 0.4 mg Sublingual SEE INSTRUCTIONS Qty: 2 PRNRF promethazine [Phenergan] 25 mg suppository 25 mg AK Q6H PRN (Reason: nausea and vomiting) Qty: 12 0RF ondansetron 4 mg tablet,disintegrating 4 mg PO Q8H PRN (Reason: nausea and vomiting) Qty: 20 0RF ondansetron 4 mg tablet,disintegrating 4 mg PO Q8H PRN (Reason: nausea and vomiting) Qty: 10 0RF promethazine 25 mg suppository 25 mg AK Q6H PRN (Reason: nausea and vomiting) Qty: 12 0RF pantoprazole [Protonix] 40 mg tablet,delayed release (DR/EC) 40 mg PO DAILY Qty: 14 0RF metoclopramide HCl 10 mg tablet 10 mg PO Q6H PRN (Reason: nausea and vomiting) Qty: 20 0RF promethazine 25 mg suppository 25 mg AK Q6H PRN (Reason: nausea and vomiting) Qty: 12 0RF haloperidol 2 mg tablet 2 mg PO DAILY PRN (Reason: nausea and vomiting) Qty: 10 0RF ondansetron 4 mg tablet,disintegrating 4 mg PO Q6H PRN (Reason: nausea and vomiting) Qty: 14 0RF promethazine 25 mg suppository 25 mg AK Q4-6H PRN (Reason: nausea and vomiting) Qty: 12 0RF atorvastatin 40 mg tablet 1 tab PO QPM glyburide 5 mg tablet 2 tab PO BID metformin 1,000 mg tablet 1 tab PO BID insulin NPH isoph U-100 human [Humulin N NPH U-100 Insulin] 100 unit/mL suspension 36 units subcut BID omeprazole 20 mg capsule,delayed release(DR/EC) 1 cap PO DAILY metoprolol succinate 25 mg tablet extended release 24 hr 1 tab PO DAILY losartan 100 mg tablet 1 tab PO DAILY nitroglycerin 0.2 mg/hr patch 24 hour 1 patch Topical DAILY Syringes 1 syr miscellaneous DIRECTED ondansetron [Zofran ODT] 4 mg tablet,disintegrating 4 mg PO Q6-8H PRN (Reason: nausea and vomiting) Qty: 14 0RF pantoprazole [Protonix] 40 mg tablet,delayed release (DR/EC) 40 mg PO QAM Qty: 30 0RF ondansetron 4 mg tablet,disintegrating 4 mg PO Q6-8H PRN (Reason: nausea and vomiting) Qty: 20 0RF Stand Alone Forms: Patient Portal/API/Survey
[2024-12-21 16:15] LABS: Add Manual Diff / Slide Review NO; Basophils Absolute Auto 0 /uL (0-100); Basophils Percent Auto 0.4 % (0-2); Eosinophils Absolute Auto 0 /uL (0-450); Hemoglobin 17.5 g/dL (13.5-17.5); Lymphocytes Absolute Auto 800 /uL (1100-4500); Lymphocytes Percent Auto 7.4 % (25-40); Mean Corpuscular HGB Conc 34.4 % (30-36); Mean Corpuscular Volume 90.1 fL (80-100); Monocytes Absolute Auto 400 /uL (0-900); Monocytes Percent Auto 3.3 % (3-14); Neutrophils Absolute Auto 10100 /uL (1500-7000); Neutrophils Percent Auto 88.9 % (50-75); Platelet Count 324 X10^3/uL (150-400); Red Blood Cell Count 5.66 X10^6/uL (4.5-5.9); Red Cell Distribution Width 13.8 % (11.6-14.8); White Blood Cell Count 11.4 X10^3/uL (4.5-11.0)
[2024-12-21] MEDS: SODIUM CHLORIDE 0.9% 1,000 ML 1000 ML IV ×2 (16:23→17:53)
[2024-12-21] MEDS: PROCHLORPERAZINE 10 MG/2 ML VIAL IV (16:24)
[2024-12-21 16:29] LABS: Alanine Aminotransferase 33 IU/L (<50); Albumin 5.4 g/dL (3.5-5.0); Albumin Globulin Ratio 1.4 (1.0-2.8); Alkaline Phosphatase 83 U/L (38-126); Aspartate Aminotransferase 47 IU/L (17-59); BUN Creatinine Ratio 22.8 (6-22); Bilirubin Total 0.8 mg/dL (0.2-1.3); Blood Urea Nitrogen 18 mg/dL (9-20); Calcium 10.2 mg/dL (8.4-10.2); Carbon Dioxide 22 mmol/L (22-32); Chloride 98 mmol/L (98-107); Estimated Glomerular Filt Rate > 60 mL/min (>60); Globulin 3.9 g/dL (1.7-4.1); Glucose 285 mg/dL (80-110); HEMOLYSIS 26 (0-50); Lipase 63 U/L (23-300); Potassium 4.1 mmol/L (3.4-5.1); Sodium 140 mmol/L (137-145); Total Protein 9.3 g/dL (6.3-8.2)
[2024-12-21 17:16] LABS: Influenza A - CEPHEID Flu A NEGATIVE (NEGATIVE); Influenza B - CEPHEID Flu B NEGATIVE (NEGATIVE); Respiratory Syncytial Virus Negative (Negative)
[2024-12-21 17:19] LABS: COVID-19 CEPHEID 4-PLEX PCR Negative (Negative)
[2024-12-21 18:13] LABS: UR Morphine/Opiate cutoff 300 Negative (Negative); Ur Creatinine Normal (Normal); Ur Specific Gravity Normal (Normal); Urine Amphetamines Negative (Negative); Urine Barbiturates Negative (Negative); Urine Benzodiazepines Negative (Negative); Urine Cocaine Negative (Negative); Urine MDMA Negative (Negative); Urine Methadone Negative (Negative); Urine Methamphetamines Negative (Negative); Urine Oxycodone Negative (Negative); Urine Phencyclidine Negative (Negative); Urine Tetrahydrocannabinol Positive (Negative); Urine Tricyclic Antidepressant Negative (Negative); Urine pH Normal (Normal)
[2024-12-21 18:23] LABS: Bacteria Urine None Seen; Culture Indicated Urine Cult Not Indicated; RBC Urine 1-5/HPF (0-5/HPF); Squamous Epithelial Cell Urine 0-1 /HPF (0-5/HPF); Urine Volume 10mL (spun); WBC Urine 0-1/HPF (0-5/HPF)
[2024-12-21 19:38] LABS: Alanine Aminotransferase 27 IU/L (<50); Albumin 4.9 g/dL (3.5-5.0); Albumin Globulin Ratio 1.5 (1.0-2.8); Alkaline Phosphatase 61 U/L (38-126); Aspartate Aminotransferase 42 IU/L (17-59); BUN Creatinine Ratio 22.1 (6-22); Bilirubin Total 0.5 mg/dL (0.2-1.3); Blood Urea Nitrogen 15 mg/dL (9-20); Calcium 9.1 mg/dL (8.4-10.2); Carbon Dioxide 26 mmol/L (22-32); Chloride 103 mmol/L (98-107); Estimated Glomerular Filt Rate > 60 mL/min (>60); Globulin 3.2 g/dL (1.7-4.1); Glucose 204 mg/dL (80-110); HEMOLYSIS 17 (0-50); Potassium 3.9 mmol/L (3.4-5.1); Sodium 142 mmol/L (137-145); Total Protein 8.1 g/dL (6.3-8.2)
[2024-12-21 19:45] LABS: Ketones (Beta-Hydroxybutyrate) 1.72 mmol/L (<0.27)
== END 2024-12-21 21:50 | disposition home or self-care (01) ==
PROVIDERS: Emergency Medicine; Emergency Provider Emergency Medicine
DX: R11.10 Vomiting, unspecified (principal); F12.90 Cannabis use, unspecified, uncomplicated
CPT/HCPCS: 0241U; 36415; 80053; 80305; 81003; 81015; 82009; 83690; 85025; 93005; 96361; 96374; 96375; 99284; J0780; J2405